=== PATIENT | female | born 1970 | race Caucasian/White ===

== ENCOUNTER → 2017-01-06 | Emergency (ER) | payer OTHER ==
[~2017-01-06] MED LIST: KETOROLAC TROMETHAMINE 30 MG/1 ML VIAL IVPUSH ONE; KETOROLAC TROMETHAMINE 30 MG/1 ML VIAL ONE; ONDANSETRON 4 MG/2 ML VIAL IVPB ONE; ONDANSETRON 4 MG/2 ML VIAL ONE; TAMSULOSIN HCL 0.4 MG CAP.ER.24H (FP) ONE; TAMSULOSIN HCL 0.4 MG CAP.ER.24H (FP) PO ONE; morphine CARPU-JECT 2 MG/1 ML DISP.SYRIN IVPUSH ONE; morphine CARPU-JECT 2 MG/1 ML DISP.SYRIN ONE
--- NOTE | 2017-01-06 20:12 | PDOC ---
History of Present Illness - General Stated Complaint: ABDOMINAL PAIN Time Seen by Provider: 01/06/17 20:02 - History of Present Illness Initial Comments: 01/06/17 20:10 CHIEF COMPLAINT: HISTORY OF PRESENT ILLNESS: 46 yo F with hx of HTN, HLD, asthma, bipolar disease, renal colic, colitis presents to ED with "kidney stones" and left sided flank pain. Patient reports the pain "like when you're having a baby and you're having contractions." She reports vomiting for the last 3 days (7 episodes) and diarrhea today (3 episodes). She reports that she is having difficulty urinating. She denies fever but reports chills, shortness of breath , and palpitations. She states that she was admitted to [facility] last week for 4 days "but they did not do anything except give me antibiotics in the IV.:" She states that she stopped having periods one year ago. No recent travel or sick contacts. PAST MEDICAL HISTORY: Denies past medical history FAMILY HISTORY: Denies SOCIAL HISTORY: Current smoker, 1 pack daily. Denies alcohol, illicit drug use. SURGICAL HISTORY: Denies ALLERGIES: No known drug allergies REVIEW OF SYSTEMS General/Constitutional: Chills. Denies fever. Denies weakness, weight change. HEENT: Denies change in vision. Denies ear pain or discharge. Denies sore throat. Cardiovascular: Shortness of breath, palpitations. Respiratory: Denies cough, wheezing, or hemoptysis. Gastrointestinal: Vomiting x 3 days, diarrhea today. Denies rectal bleeding. Genitourinary: Dysuria x 3 days. Denies frequency, or change in urination. Musculoskeletal: Denies joint or muscle swelling or pain. Denies neck or back pain. Skin and breasts: Denies rash or easy bruising. Neurologic: Denies headache, vertigo, loss of consciousness, or loss of sensation. PHYSICAL EXAM General Appearance: Well-appearing, appropriately dressed. No apparent distress. HEENT: EOMI, PERRLA, normal ENT inspection, normal voice, TMs normal, pharynx normal. No conjunctival pallor. No photophobia, scleral icterus. Neck: Supple. Trachea midline. No tenderness, rigidity, carotid bruit, stridor , lymphadenopathy, or thyromegaly. Respiratory/Chest: Lungs CTAB. No shortness of breath, chest tenderness, respiratory distress, accessory muscle use. No crackles, rales, rhonchi, stridor , wheezing, dullness Cardiovascular: RRR. S1, S2. No JVD, murmur, bradycardia, tachycardia. Vascular Pulses: Dorsalis-Pedis (R): 2+, Dorsalis-Pedis (L): 2+ Gastrointestinal/Abdominal: Normal bowel sounds. Abdomen soft, non-distended. No tenderness or rebound tenderness. No organomegaly, pulsatile mass, guarding , hernia, hepatomegaly, splenomegaly. Musculoskeletal/Extremities: L CVA tenderness. Normal inspection. FROM of all extremities, normal capillary refill. No tenderness to extremities, pedal edema , swelling, erythema or deformity. Integumentary: Appropriate color, dry, warm. No cyanosis, erythema, jaundice or rash Neurologic: jar filler II-XII intact. Fully oriented, alert. Appropriate mood/affect. Motor strength 5/5. No appreciable EOM palsy, facial droop or sensory deficit. 01/06/17 20:23 01/06/17 20:26 Past History - Past Medical History Allergies/Adverse Reactions: Allergies Allergy/AdvReac Type Severity Reaction Status Date / Time No Known Allergies Allergy Verified 01/06/17 20:16 Home Medications: Ambulatory Orders RX: Albuterol Sulfate Inhaler - [Ventolin HFA Inhaler -] 2 inh PO Q4H PRN RX: Amlodipine Besylate [Norvasc -] 10 mg PO DAILY 06/10/14 RX: Clonazepam [Klonopin] 1 mg PO TID 06/10/14 RX: Mirtazapine [Remeron -] 30 mg PO HS 06/10/14 RX: Montelukast Na [Singulair -] 10 mg PO HS 06/10/14 RX: Valsartan [Diovan] 160 mg PO DAILY 06/10/14 RX: Pantoprazole Sodium [Protonix -] 40 mg PO DAILY #30 tablet.ec 06/13/14 RX: Quetiapine Fumarate [Seroquel] 200 tab PO DAILY 11/29/15 RX: Docusate Sodium [Colace -] 100 mg PO TID #30 capsule 11/30/15 RX: Ibuprofen 600 mg PO Q6H PRN #20 tablet 11/30/15 RX: Ondansetron HCl [Zofran] 4 mg PO Q6H PRN #12 tablet 11/30/15 RX: Oxycodone HCl/Acetaminophen [Percocet 5-325 mg Tablet] 1 tab PO Q4H PRN #12 tablet MDD 4 11/30/15 RX: Phenyleph/Mineral Oil/Petrolat [Preparation H Ointment] 28 gm RC BID #1 oint.appl 11/30/15 RX: Tamsulosin HCl [Flomax -] 0.4 mg PO DAILY #14 capsule 11/30/15 Tamsulosin HCl [Flomax] 0.4 mg PO ASDIR #14 cap.er.24h 01/06/17 Asthma: Yes GI Disorders: Yes (colitis) HTN: Yes Hypercholesterolemia: Yes Kidney Stones: Yes Psychiatric Problems: Yes (bipolar) - Immunization History Immunization Up to Date: Yes - Psycho/Social/Smoking Cessation Hx Suicidal Ideation: No Smoking History: Never smoked Have you smoked in the past 12 months: No Number of Cigarettes Smoked Daily: 20 Hx Alcohol Use: No Drug/Substance Use Hx: No Substance Use Type: None Hx Substance Use Treatment: No ED Treatment Course - LABORATORY CBC & Chemistry Diagram: 01/06/17 20:50 01/06/17 20:50 Medical Decision Making - Medical Decision Making 01/06/17 20:29 46 yo F with hx of HTN, HLD, asthma, bipolar disease, renal colic, colitis presents to ED with "kidney stones" and left sided flank pain. -CBC, CMP -EKG, CXR -30 mg IM Toradol Patient persistently demands for more pain medication and threatens to leave hospital if she does not receive pain medication. 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: Rx Written Rx Dispensed Drug Quantity Days Supply Prescriber Name 12/20/2016 12/21/2016 zolpidem tartrate 10 mg tablet 30 30 Dylon Matamoros 12/20/2016 12/21/2016 endocet 10-325 mg tablet 120 30 Dylon Matamoros 12/20/2016 12/21/2016 fentanyl 50 mcg/hr patch 10 30 Dylon Matamoros 12/18/2016 12/19/2016 clonazepam 2 mg tablet 90 30 Fartun Padgett MD) 11/15/2016 11/22/2016 zolpidem tartrate 10 mg tablet 30 30 Dylon Matamoros 11/15/2016 11/22/2016 fentanyl 50 mcg/hr patch 10 30 Elzholz, Dylon 11/15/2016 11/22/2016 endocet 10-325 mg tablet 120 30 Elzholz, Dylon 11/13/2016 11/14/2016 clonazepam 2 mg tablet 60 30 Fletcher Ly MD 10/21/2016 10/21/2016 zolpidem tartrate 10 mg tablet 30 30 Elzholz, Dylon 10/21/2016 10/21/2016 fentanyl 50 mcg/hr patch 10 30 Elzholz, Dylon 10/21/2016 10/21/2016 endocet 10-325 mg tablet 120 30 Elzholz, Dylon 10/09/2016 10/17/2016 clonazepam 2 mg tablet 60 30 Fletcher Ly MD 09/20/2016 09/20/2016 fentanyl 50 mcg/hr patch 10 30 Elzholz, Dylon 09/20/2016 09/20/2016 zolpidem tartrate 10 mg tablet 30 30 Elzholz, Dylon 09/20/2016 09/20/2016 endocet 10-325 mg tablet 120 30 Elzholz, Dylon 09/18/2016 09/18/2016 clonazepam 2 mg tablet 60 30 Fletcher Ly MD Will defer more pain medication until after CT results. 01/06/17 23:25 CT wet read with stone to L kidney. 2 mg morphine. 01/06/17 23:39 CT results: 6 mm calcification within upper pole of left kidney consistent with a nonobstructing calculus. Will discharge patient with close follow up with urology for management of kidney stone. Flomax rx sent to pharm. Advised patient to take medication as prescribed and follow up with urology within the week. Advised patient of signs and symptoms for return to ED. Patient verbalized understanding and agrees to plan. *DC/Admit/Observation/Transfer Diagnosis at time of Disposition: Renal colic - Discharge Dispostion Disposition: HOME Condition at time of disposition: Stable Admit: No - Prescriptions Prescriptions: Tamsulosin HCl [Flomax] 0.4 mg PO ASDIR #14 cap.er.24h - Referrals Referrals: Keith Paredes MD [Primary Care Provider] - Vinnie Yung MD [Staff Physician] - - Patient Instructions Printed Discharge Instructions: DI for Kidney Stones Additional Instructions: Please take medication as directed to help you pass the stone. You MUST follow up with urology THIS WEEK for further evaluation of your kidney stone. If you experience any shortness of breath, chest pain, vaginal bleeding, fever, chills , vomiting, diarrhea, or any new or worsening symptoms, please return to the ER.
[2017-01-06 20:18] VITALS: BMI 40.8
[2017-01-06 21:04] LABS: BASOPHIL 0.8 % (0-2.0); EOSINOPHIL 9.8 % (0-4.5); MCH 32.5 pg (25.7-33.7); MCHC 33.6 g/dl (32.0-36.0); MEAN CELL VOLUME 96.6 fl (80-96); NEUTROPHILS 52.1 % (42.8-82.8); PLATELET COUNT 360 K/MM3 (134-434); RDW 13.7 % (11.6-15.6); WHITE BLOOD COUNT 14.3 K/mm3 (4.0-10.0)
[2017-01-06 21:33] LABS: URINE APPEARANCE CLEAR; URINE BILIRUBIN NEGATIVE (NEGATIVE); URINE COLOR STRAW; URINE GLUCOSE (UA) NEGATIVE (NEGATIVE); URINE KETONE NEGATIVE (NEGATIVE); URINE NITRITE NEGATIVE (NEGATIVE); URINE PROTEIN NEGATIVE (NEGATIVE); URINE UROBILINOGEN NEGATIVE E.U./dl (0.2-1.0)
[2017-01-06 21:35] LABS: URINE BLOOD 1+ (NEGATIVE); URINE LEUK ESTERASE TRACE (NEGATIVE)
[2017-01-06 21:37] LABS: URINE BACTERIA RARE /hpf (NONE SEEN); URINE MUCUS RARE; URINE RBC 1 /hpf (0-3); URINE WBC 2 /hpf (3-5)
[2017-01-06 21:54] LABS: TROPONIN I < 0.02 ng/ml (0.00-0.05)
[2017-01-06 22:42] LABS: ALBUMIN 3.8 g/dl (3.4-5.0); ALK PHOS 162 U/L (45-117); ANION GAP 10 (8-16); BILIRUBIN,TOTAL 0.3 mg/dL (0.2-1.0); CALCIUM 8.8 mg/dL (8.5-10.1); CO2 24 mmol/L (21-32); CREATININE 0.7 mg/dL (0.55-1.02); GLUCOSE,RANDOM 97 mg/dL (74-106); SGOT/AST 28 U/L (15-37); SGPT/ALT 41 U/L (12-78); TOT PROT 7.4 g/dl (6.4-8.2)
[2017-01-07 00:22] VITALS: BP 144/85; PULSE 81; TEMP 97.6
--- NOTE | 2017-01-07 17:10 | EKG ---
Test Reason : Blood Pressure : / mmHG Vent. Rate : 085 BPM Atrial Rate : 085 BPM P-R Int : 164 ms QRS Dur : 084 ms QT Int : 380 ms P-R-T Axes : 057 041 024 degrees QTc Int : 452 ms NORMAL SINUS RHYTHM NORMAL ECG WHEN COMPARED WITH ECG OF 25-JUL-2016 21:14, NO SIGNIFICANT CHANGE WAS FOUND Confirmed by JAXON MCINTYRE MD ([id number]) on 01/07/2017 5:09:40 PM Referred By: Confirmed By:JAXON MCINTYRE MD
== END | disposition home or self-care (01) ==
LOC: JER 19:49
PROC: 3E033NZ Introduction of Analgesics, Hypnotics, Sedatives into Peripheral Vein, Percutaneous Approach (ICD-10-PCS; principal; 2017-01-06)
PROC: 3E0333Z Introduction of Anti-inflammatory into Peripheral Vein, Percutaneous Approach (ICD-10-PCS; 2017-01-06)
PROC: 3E033GC Introduction of Other Therapeutic Substance into Peripheral Vein, Percutaneous Approach (ICD-10-PCS; 2017-01-06)
DX: N20.0 Calculus of kidney (principal); Z87.442 Personal history of urinary calculi; I10 Essential (primary) hypertension; E78.5 Hyperlipidemia, unspecified; E78.00 Pure hypercholesterolemia, unspecified; J45.909 Unspecified asthma, uncomplicated; F31.9 Bipolar disorder, unspecified
CPT/HCPCS: 36415; 71020-TC; 74176; 80053; 81003; 81015; 82550; 83690; 84484; 84703; 85025; 93005; 93010; 96374; 96375; 99283-25

== ENCOUNTER 2017-04-17 12:00 | Inpatient (IN) | payer OTHER ==
[2017-04-21 13:02] VITALS: BMI 42.2
[2017-04-22] MEDS ORDERED: MIDAZOLAM HCL 2 MG/2 ML SINGLE DOSE VIAL ONE ×2 (12:31→15:55)
[2017-04-22] MEDS ORDERED: ROCURONIUM BROMIDE 50 MG/5 ML VIAL ONE ×3 (12:32→16:08)
[2017-04-22] MEDS ORDERED: methylPREDNISolone NA SUCC 125 MG/2 ML VIAL ONE (12:38)
[2017-04-22] MEDS ORDERED: ALBUTEROL SO4 6.7 GM HFA INHALER IH ONE (12:38)
--- NOTE | 2017-04-22 12:49 | HP ---
Admitting History and Physical - Admission Chief Complaint: Morbid Obesity History of Present Illness: 46 female presents for bariatric surgery History of hypertension, hypercholesterolemia History Source: Patient Limitations to Obtaining History: No Limitations - Past Medical History Cardiovascular: Yes: HTN, Other (Hyoercholesterolemia) Pulmonary: Yes: Asthma Renal/: Yes: Renal Calculi ...LMP: 06/03/14 ...LMP Comment: POSTMENOPAUSAL ...: No Psych: Yes: Bipolar - Past Surgical History Past Surgical History: Yes: None - Smoking History Smoking history: Current every day smoker Have you smoked in the past 12 months: Yes Aproximately how many cigarettes per day: 20 - Alcohol/Substance Use Hx Alcohol Use: No History of Substance Use: reports: None - Social History History of Recent Travel: No Home Medications - Allergies Allergies/Adverse Reactions: Allergies Allergy/AdvReac Type Severity Reaction Status Date / Time No Known Allergies Allergy Verified 04/22/17 10:58 - Home Medications Home Medications: Ambulatory Orders Albuterol Sulfate Inhaler - [Ventolin HFA Inhaler -] 2 inh PO Q4H PRN 06/10/14 Amlodipine Besylate [Norvasc -] 5 mg PO DAILY 06/10/14 Clonazepam [Klonopin] 2 mg PO TID 06/10/14 Mirtazapine [Remeron -] 30 mg PO HS 06/10/14 Valsartan [Diovan] 160 mg PO DAILY 06/10/14 Pantoprazole Sodium [Protonix -] 40 mg PO DAILY #30 tablet.ec 06/13/14 Quetiapine Fumarate [Seroquel] 200 tab PO DAILY 11/29/15 Ibuprofen 600 mg PO Q6H PRN #20 tablet 11/30/15 Ondansetron HCl [Zofran] 4 mg PO Q6H PRN #12 tablet 11/30/15 Oxycodone HCl/Acetaminophen [Percocet 5-325 mg Tablet] 1 tab PO Q4H PRN #12 tablet MDD 4 11/30/15 Tamsulosin HCl [Flomax] 0.4 mg PO ASDIR #14 cap.er.24h 01/06/17 Family Disease History - Family Disease History Family History: Unremarkable Review of Systems - Review of Systems Constitutional: denies: Chills, Fever Neck: reports: No Symptoms Cardiovascular: reports: No Symptoms Gastrointestinal: reports: No Symptoms Neurological: reports: No Symptoms Pain Intensity: 0 Physical Examination Vital Signs: Vital Signs Temperature 99.2 F 04/22/17 11:01 Pulse Rate 89 04/22/17 11:01 Respiratory Rate 16 04/22/17 11:01 Blood Pressure 156/81 04/22/17 11:01 O2 Sat by Pulse Oximetry (%) 98 04/22/17 11:01 Constitutional: Yes: Calm, Obese HENT: Yes: WNL Neck: Yes: Supple Cardiovascular: Yes: Regular Rate and Rhythm Respiratory: Yes: CTA Bilaterally Gastrointestinal: Yes: Soft. No: Tenderness Neurological: Yes: Alert, Oriented Problem List - Problems (1) Asthma Code(s): J45.909 - UNSPECIFIED ASTHMA, UNCOMPLICATED Qualifiers: Asthma severity: unspecified severity (2) Hypertension Code(s): I10 - ESSENTIAL (PRIMARY) HYPERTENSION Qualifiers: Hypertension type: unspecified Qualified Code(s): I10 - Essential ( primary) hypertension (3) Morbid obesity due to excess calories Code(s): E66.01 - MORBID (SEVERE) OBESITY DUE TO EXCESS CALORIES (4) Hypercholesteremia Code(s): E78.00 - PURE HYPERCHOLESTEROLEMIA, UNSPECIFIED Assessment/Plan 46 female with morbid obesity Laparoscopic vertical sleeve gastrectomy possible open Understands risks and benefits Agrees
[2017-04-22] MEDS ORDERED: BUPIVACAINE HCL/PF 0.5% (5MG/ML) 10 ML VIAL IJ ONE (13:10)
[2017-04-22] MEDS ORDERED: NEOSTIGMINE METHYLSULFATE 0.5 MG/ML - 10 ML MDV ONE (13:57)
[2017-04-22] MEDS ORDERED: GLYCOPYRROLATE 0.2 MG/1 ML VIAL ONE ×4 (13:57)
[2017-04-22] MEDS ORDERED: HYDROmorphone HCL/PF 1 MG/ML VIAL (FOR PYXIS CHARGING ONLY) ONE (14:28)
[2017-04-22] MEDS ORDERED: BUPIVACAINE HCL/PF 0.5% (5MG/ML) 10 ML VIAL ONE (14:47)
[2017-04-22] MEDS: HYDROmorphone HCL CARPU-JECT 1 MG/1 ML DISP.SYRIN IVPUSH PRN ×8 (15:21→16:51)
[2017-04-22] MEDS ORDERED: HYDROmorphone HCL CARPU-JECT 2 MG/1 ML DISP.SYRIN ONE (15:21)
[2017-04-22] MEDS ORDERED: KETOROLAC TROMETHAMINE 30 MG/1 ML VIAL IVPUSH ONE (15:22)
[2017-04-22] MEDS ORDERED: ACETAMINOPHEN 1000 MG/100 ML VIAL (NON FORMULARY) IVPB ONE (15:22)
[2017-04-22] MEDS ORDERED: ONDANSETRON 4 MG/2 ML VIAL IVPUSH PRN (15:22)
[2017-04-22] MEDS ORDERED: LACTATED RINGERS SOLUTION 1,000 ML IV SCH (15:30)
[2017-04-22] MEDS ORDERED: HYDROmorphone HCL CARPU-JECT 1 MG/1 ML DISP.SYRIN IVPB PRN (15:32)
[2017-04-22] MEDS ORDERED: ALBUTEROL SO4 6.7 GM HFA INHALER IH PRN ×2 (15:37→20:05)
--- NOTE | 2017-04-22 15:37 | OP ---
Operative Note - Note: Operative Date: 04/22/17 Pre-Operative Diagnosis: Morbid Obesity Operation: laparoscopic vertical sleeve gastrectomy, EGD, wedge liver biopsy Findings: Hepatomegaly No leak/obstruction Post-Operative Diagnosis: Other (Morbid Obesity, Hepatomegaly) Surgeon: Melchor Bird (chau muse) It Investment/Portfolio Manager: Patric Chavarria Anesthesia: General Specimens Removed: Greater curvature of the stomach, wedge liver biopsy of the left lobe of the liver Estimated Blood Loss (mls): 30 Operative Report Dictated: Yes
[2017-04-22 15:44] LABS: MCH 32.3 pg (25.7-33.7); MCHC 34.1 g/dl (32.0-36.0); MEAN CELL VOLUME 94.6 fl (80-96); MEAN PLT VOLUME 7.6 fl (7.5-11.1); PLATELET COUNT 373 K/MM3 (134-434); WHITE BLOOD COUNT 16.3 K/mm3 (4.0-10.0)
[2017-04-22] MEDS ORDERED: SODIUM CHLORIDE 1,000 ML IV SCH (15:45)
[2017-04-22] MEDS ORDERED: ACETAMINOPHEN 1000 MG/100 ML VIAL (NON FORMULARY) IVPB SCH (15:45)
[2017-04-22 16:09] LABS: ALBUMIN 3.3 g/dl (3.4-5.0); ANION GAP 7 (8-16); CALCIUM 8.5 mg/dL (8.5-10.1); CO2 27 mmol/L (21-32); GLUCOSE,RANDOM 138 mg/dL (74-106)
[2017-04-22 16:12] LABS: ALK PHOS 166 U/L (45-117); BILIRUBIN,TOTAL 0.3 mg/dL (0.2-1.0); CREATININE 0.6 mg/dL (0.55-1.02); SGOT/AST 28 U/L (15-37); SGPT/ALT 36 U/L (12-78); TOT PROT 6.7 g/dl (6.4-8.2)
[2017-04-22] MEDS ORDERED: ACETAMINOPHEN INJECTION 100 ML IVPB ONE (16:23)
[2017-04-22] MEDS ORDERED: KETOROLAC TROMETHAMINE 30 MG/1 ML VIAL ONE (16:23)
--- NOTE | 2017-04-22 16:30 | SPEC ---
DATE OF OPERATION: 04/22/2017 SURGEON: Melchor Bird MD SUPERVISING LAW ENFORCEMENT ANALYST: Patric Chavarria MD and ELISSA Siddiqui PREOPERATIVE DIAGNOSIS: Morbid obesity. POSTOPERATIVE DIAGNOSES: Morbid obesity and hepatomegaly. PROCEDURE: Laparoscopic vertical sleeve gastrectomy, upper endoscopy, and wedge liver biopsy of the left lobe of the liver. SPECIMEN: Greater curvature of the stomach, wedge liver biopsy of the left lobe of the liver. ESTIMATED BLOOD LOSS: 30 mL DRAINS: None. ANESTHESIA: GET. REASON FOR PROCEDURE: This is a 46-year-old female who presented to the office for evaluation for weight loss options. RISKS AND BENEFITS: After describing the different options for weight loss management, the patient decided to proceed with a laparoscopic, possible open vertical sleeve gastrectomy. The patient was seen by the respective subspecialties and cleared for surgery. The risks and benefits of the procedure were explained. These included bleeding, infection, hernia, KS, DVT, PE, injury to surrounding structures including the liver, colon, bowel, spleen, esophagus, vessel injury, nerve injury, weight regain, gastric leak, staple line leak, sleeve leak, obstruction, vitamin deficiency, hair loss and as some of the possible complications. The patient understood and signed informed consent. DESCRIPTION OF PROCEDURE: The patient was placed supine on the operating room table. The patient underwent general endotracheal intubation. A Ayoub catheter was inserted. The arms were brought out at 90 degrees and secured. A footboard was placed and the legs were secured laterally with padding. The abdomen was prepped and draped in the usual sterile fashion. A timeout was performed. An incision was made in the left upper quadrant and a Veress needle inserted. Pneumoperitoneum was established. Subsequently, the Veress needle was removed and a 12-mm trocar was placed. The laparoscopic camera was then inserted and inspection of the abdominal cavity was performed. An incision was then made in the supraumbilical area and a 15-mm trocar was placed under direct visualization. A 5-mm trocar was then placed in the right upper quadrant and a 5-mm trocar was placed below the left subcostal margin. A stab wound was made in the subxiphoid area and a Caroline clamp inserted and removed to dilate the tract. A Yimi liver retractor was inserted. The post was secured at the bedside by the nursing staff. The patient was placed in steep reverse Trendelenburg position and the Yimi liver retractor was used to secure the liver towards the anterior abdominal wall. The pylorus was identified and 6 cm proximal to it, the lesser sac was entered using the LigaSure device. All lateral attachments to the greater curvature of the stomach, including the short gastric vessels, were ligated using the LigaSure device toward the gastrosplenic and gastrophrenic ligaments. Once this was done in its entirety, it was confirmed that all tubes within the nasal or oropharyngeal cavity, including a temperature probe, was removed by Anesthesia. The bougie was then inserted by Anesthesia. Transection of the stomach was then begun staying adjacent to the bougie but away from the angularis. Transection of the stomach was performed near the portion of the stomach where the lesser sac was entered. Two laparoscopic Endo-HOSSEIN black bev were used at this location. Laparoscopic Endo HOSSEIN purple staple loads were then used for the remainder of the transection until the greater curvature of the stomach was fully transected. This was done staying close to the bougie. Care was taken to stay away from the angle of His cephalad. The staple line was then inspected. Hemostasis was identified. A leak test was then performed. It was clamped distally to the staple line. Irrigation solution was placed in the left upper quadrant and air was insufflated by Anesthesia into the sleeve. No leaks were identified. No obstruction was identified. This was done through the entirety of the staple line. At this point, the irrigation solution was suctioned and again , hemostasis was noted. A wedge liver biopsy was then performed. The left lobe of the liver was identified and a portion of the edge was grasped. Using electrocautery, a wedge of the liver was excised. This was removed and sent off the field as specimen. Hemostasis at the site of the wedge liver biopsy was attained using electrocautery. The 15-mm supraumbilical trocar was then removed and the greater curvature specimen removed from the site using a sponge stick kenyon. The specimen was inspected and a Veress needle inserted. The specimen insufflated adequately and no leak was identified. The staple line was noted to be intact. A James-Cammie device was then used to temporarily close the fascia with a 0 Vicryl suture at the site. The 15-mm trocar was then reinserted and the 12-mm trocar in the left upper quadrant was removed. The fascia at this site was then closed using the James-Cammie device with a 0 Vicryl suture. Again, hemostasis was noted. The Yimi liver retractor was then removed under direct visualization. Pneumoperitoneum was desufflated and the fascial sutures were secured. Hemostasis was noted at all incision sites and Marcaine was injected at all incision sites. All incision sites were closed using 4-0 Biosyn. Sterile dressings were applied. The patient tolerated the procedure well and was transferred to the recovery room in stable condition with the Ayoub catheter intact. The patient was transferred to telemetry for further monitoring. In addition, after the 36-Romansh bougie was removed, an upper endoscopy was performed to evaluate for leak. No leak or obstruction was noted. Deya CALZADA/[id number] MTDD
[2017-04-22] MEDS ORDERED: HYDROmorphone HCL CARPU-JECT 1 MG/1 ML DISP.SYRIN IVPUSH PRN (16:32)
[2017-04-22] MEDS ORDERED: METOCLOPRAMIDE HCL INJECTION 10 MG/2 ML VIAL ONE (16:50)
[2017-04-22] MEDS: METOCLOPRAMIDE HCL INJECTION 10 MG/2 ML VIAL IVPB SCH ×3 (17:00→21:49)
[2017-04-22] MEDS: ONDANSETRON 4 MG/2 ML VIAL IVPB SCH ×2 (18:15→23:00)
[2017-04-22] MEDS: FAMOTIDINE 20 MG/50 ML IVPB 50 ML IVPB SCH (21:48)
[2017-04-22] MEDS: ACETAMINOPHEN 1000 MG/100 ML VIAL (NON FORMULARY) IVPB SCH (21:49)
[2017-04-22] MEDS: ENOXAPARIN NA (PORCINE) 40 MG/0.4 ML DISP.SYRIN SQ SCH (21:49)
[2017-04-22] MEDS: HYDROmorphone HCL CARPU-JECT 1 MG/1 ML DISP.SYRIN IVPB PRN (21:49)
[2017-04-22] MEDS ORDERED: ENOXAPARIN NA (PORCINE) 40 MG/0.4 ML DISP.SYRIN SQ SCH (22:00)
[2017-04-22] MEDS ORDERED: FAMOTIDINE 20 MG/50 ML IVPB 50 ML IVPB SCH (22:00)
[2017-04-23] MEDS: METOCLOPRAMIDE HCL INJECTION 10 MG/2 ML VIAL IVPB SCH ×4 (03:35→21:55)
[2017-04-23] MEDS: ACETAMINOPHEN 1000 MG/100 ML VIAL (NON FORMULARY) IVPB SCH ×2 (03:35→09:25)
[2017-04-23] MEDS: ONDANSETRON 4 MG/2 ML VIAL IVPB SCH ×7 (03:35→23:16)
[2017-04-23] MEDS: HYDROmorphone HCL CARPU-JECT 1 MG/1 ML DISP.SYRIN IVPB PRN ×4 (03:59→21:55)
[2017-04-23 07:21] LABS: MCH 31.9 pg (25.7-33.7); MCHC 33.6 g/dl (32.0-36.0); MEAN CELL VOLUME 95.1 fl (80-96); MEAN PLT VOLUME 7.7 fl (7.5-11.1); PLATELET COUNT 337 K/MM3 (134-434); RDW 14.4 % (11.6-15.6); WHITE BLOOD COUNT 14.2 K/mm3 (4.0-10.0)
[2017-04-23 07:46] LABS: ALBUMIN 2.9 g/dl (3.4-5.0); ALK PHOS 138 U/L (45-117); ANION GAP 9 (8-16); BILIRUBIN,TOTAL 0.3 mg/dL (0.2-1.0); CALCIUM 7.6 mg/dL (8.5-10.1); CO2 26 mmol/L (21-32); CREATININE 0.5 mg/dL (0.55-1.02); GLUCOSE,RANDOM 109 mg/dL (74-106); SGOT/AST 26 U/L (15-37); SGPT/ALT 32 U/L (12-78); TOT PROT 5.8 g/dl (6.4-8.2)
--- NOTE | 2017-04-23 08:39 | PN ---
Progress Note, Physician Chief Complaint: Pt. pain controlled, no GA complaints. - Current Medication List Current Medications: Active Medications Acetaminophen (Ofirmev Injection -) 1,000 mg IVPB Q6H [facility] Stop: 04/23/17 09:46 Last Admin: 04/23/17 03:35 Dose: 1,000 mg Albuterol Sulfate (Ventolin Hfa Inhaler -) 2 puff IH Q4H PRN PRN Reason: ASTHMA Enoxaparin Sodium (Lovenox -) 40 mg SQ BID [facility] Last Admin: 04/22/17 21:49 Dose: 40 mg Hydromorphone HCl (Dilaudid Injection -) 1 mg IVPB Q3H PRN PRN Reason: PAIN Last Admin: 04/23/17 07:44 Dose: 1 mg Famotidine/Sodium Chloride (Pepcid 20 Mg Premixed Ivpb -) 50 mls @ 100 mls/hr IVPB BID [facility] Last Admin: 04/22/17 21:48 Dose: 100 mls/hr Sodium Chloride (Normal Saline -) 1,000 mls @ 150 mls/hr IV ASDIR [facility] Metoclopramide HCl (Reglan Injection -) 10 mg IVPB Q6H [facility] Last Admin: 04/23/17 03:35 Dose: 10 mg Ondansetron HCl (Zofran Injection) 4 mg IVPB Q4H [facility] Last Admin: 04/23/17 03:35 Dose: 4 mg - Objective Vital Signs: Vital Signs Temperature 98.7 F 04/23/17 06:00 Pulse Rate 88 04/23/17 06:00 Respiratory Rate 16 04/23/17 06:00 Blood Pressure 114/70 04/23/17 06:00 O2 Sat by Pulse Oximetry (%) 97 04/22/17 21:00 Constitutional: Yes: Well Nourished, No Distress, Calm Neurological: Yes: WNL, Alert, Oriented Labs: CBC, BMP 04/23/17 07:00 04/23/17 07:00 Assessment/Plan POD#1 s/p laparoscopic vertical sleeve gastrectomy under GA. Doing well. D/C from anesthesia care.
[2017-04-23] MEDS: ENOXAPARIN NA (PORCINE) 40 MG/0.4 ML DISP.SYRIN SQ SCH ×2 (09:23→21:56)
[2017-04-23] MEDS: SODIUM CHLORIDE 1,000 ML IV SCH ×3 (09:35→21:56)
[2017-04-23] MEDS: FAMOTIDINE 20 MG/50 ML IVPB 50 ML IVPB SCH ×2 (09:35→21:54)
--- NOTE | 2017-04-23 10:05 | PN ---
Progress Note (short form) - Note Progress Note: POD #1 Alert. Doing well. Incisional tenderness but pain controlled well via PRN meds. Denies n/v/f/c, CP or SOB. AVSS. Afebrile. CBC, BMP 04/23/17 07:00 04/23/17 07:00 UGI 04/23 --> no leak Gen: alert. nad Abd: morbidly obese. All surgical ports intact. No hematoma. LE: soft. nt b/l <Bacilio Spring P - Last Filed: 04/23/17 10:01> - Note Progress Note: Agree POD 1 Pain controlled with medication AVSS Abd soft CBC,CMP WBC 14.2 K/mm3 (4.0-10.0) H 04/23/17 07:00 RBC 3.43 M/mm3 (3.60-5.2) L 04/23/17 07:00 Hgb 11.0 GM/dL (10.7-15.3) D 04/23/17 07:00 Hct 32.7 % (32.4-45.2) 04/23/17 07:00 MCV 95.1 fl (80-96) 04/23/17 07:00 MCH 31.9 pg (25.7-33.7) 04/23/17 07:00 MCHC 33.6 g/dl (32.0-36.0) 04/23/17 07:00 RDW 14.4 % (11.6-15.6) 04/23/17 07:00 Plt Count 337 K/MM3 (134-434) 04/23/17 07:00 MPV 7.7 fl (7.5-11.1) 04/23/17 07:00 Sodium 139 mmol/L (136-145) 04/23/17 07:00 Potassium 4.0 mmol/L (3.5-5.1) 04/23/17 07:00 Chloride 104 mmol/L (98-107) 04/23/17 07:00 Carbon Dioxide 26 mmol/L (21-32) 04/23/17 07:00 Anion Gap 9 (8-16) 04/23/17 07:00 BUN 12 mg/dL (7-18) 04/23/17 07:00 Creatinine 0.5 mg/dL (0.55-1.02) L 04/23/17 07:00 Creat Clearance w eGFR > 60 (>60) 04/23/17 07:00 Random Glucose 109 mg/dL (74-106) H D 04/23/17 07:00 Calcium 7.6 mg/dL (8.5-10.1) L 04/23/17 07:00 Total Bilirubin 0.3 mg/dL (0.2-1.0) 04/23/17 07:00 AST 26 U/L (15-37) 04/23/17 07:00 ALT 32 U/L (12-78) 04/23/17 07:00 Alkaline Phosphatase 138 U/L (45-117) H 04/23/17 07:00 Total Protein 5.8 g/dl (6.4-8.2) L 04/23/17 07:00 Albumin 2.9 g/dl (3.4-5.0) L 04/23/17 07:00 UGI: no leak/obstruction Clears OOB <Melchor Bird - Last Filed: 04/23/17 19:10> Problem List - Problems (1) Morbid obesity due to excess calories Assessment/Plan: POD #1 s/p Laparoscopic vertical sleeve gastretocmy Start bariatric stage 1 diet OOB and ambulate BLAYNE echeverria DC planning tomorrow Code(s): E66.01 - MORBID (SEVERE) OBESITY DUE TO EXCESS CALORIES <Bacilio Spring - Last Filed: 04/23/17 10:01> - Problems (1) Asthma Code(s): J45.909 - UNSPECIFIED ASTHMA, UNCOMPLICATED Qualifiers: Asthma severity: unspecified severity (2) Hypertension Code(s): I10 - ESSENTIAL (PRIMARY) HYPERTENSION Qualifiers: Hypertension type: unspecified Qualified Code(s): I10 - Essential ( primary) hypertension (3) Morbid obesity due to excess calories Code(s): E66.01 - MORBID (SEVERE) OBESITY DUE TO EXCESS CALORIES (4) Hypercholesteremia Code(s): E78.00 - PURE HYPERCHOLESTEROLEMIA, UNSPECIFIED <Melchor Bird - Last Filed: 04/23/17 19:10>
[2017-04-23] MEDS ORDERED: SIMETHICONE 40 MG/0.6 ML BOTTLE PO PRN (10:18)
--- NOTE | 2017-04-23 10:18 | CONSULT ---
Consult Consult Specialty:: family medicine Referred by:: DR FINCH Reason for Consultation:: MEDICAL FOLLOW UP S/P GASTRIC SLEEVE POD #1 - History of Present Illness Chief Complaint: ABD PAIN History of Present Illness: 46 Y/O FEMALE WITH HISTORY BIPOLAR D/O, ASTHMA, S/P GASTRIC SLEEVE POD #1. - History Source History Provided By: Patient, Medical Record Limitations to Obtaining History: No Limitations - Past Medical History Cardio/Vascular: Yes: HTN, Other (Hyoercholesterolemia) Pulmonary: Yes: Asthma Renal/: Yes: Renal Calculi ...LMP: 06/03/14 ...LMP Comment: POSTMENOPAUSAL ...: No Psych: Yes: Bipolar - Past Surgical History Past Surgical History: Yes: None - Alcohol/Substance Use Hx Alcohol Use: No History of Substance Use: reports: None - Smoking History Smoking history: Current every day smoker Have you smoked in the past 12 months: Yes Aproximately how many cigarettes per day: 20 - Social History History of Recent Travel: No Home Medications - Allergies Allergies/Adverse Reactions: Allergies Allergy/AdvReac Type Severity Reaction Status Date / Time No Known Allergies Allergy Verified 04/22/17 10:58 - Home Medications Home Medications: Ambulatory Orders Albuterol Sulfate Inhaler - [Ventolin HFA Inhaler -] 2 inh PO Q4H PRN 06/10/14 Amlodipine Besylate [Norvasc -] 5 mg PO DAILY 06/10/14 Clonazepam [Klonopin] 2 mg PO TID 06/10/14 Mirtazapine [Remeron -] 30 mg PO HS 06/10/14 Valsartan [Diovan] 160 mg PO DAILY 06/10/14 Pantoprazole Sodium [Protonix -] 40 mg PO DAILY #30 tablet.ec 06/13/14 Quetiapine Fumarate [Seroquel] 200 tab PO DAILY 11/29/15 Ibuprofen 600 mg PO Q6H PRN #20 tablet 11/30/15 Ondansetron HCl [Zofran] 4 mg PO Q6H PRN #12 tablet 11/30/15 Oxycodone HCl/Acetaminophen [Percocet 5-325 mg Tablet] 1 tab PO Q4H PRN #12 tablet MDD 4 11/30/15 Tamsulosin HCl [Flomax] 0.4 mg PO ASDIR #14 cap.er.24h 01/06/17 Famotidine [Pepcid] 20 mg PO BID #60 tablet 04/22/17 Oxycodone HCl/Acetaminophen [Percocet 5-325 mg Tablet] 1 - 2 tab PO Q6H #28 tab MDD 4 04/22/17 Review of Systems - Review of Systems Constitutional: reports: No Symptoms Eyes: reports: No Symptoms HENT: reports: No Symptoms Neck: reports: No Symptoms Cardiovascular: reports: No Symptoms Respiratory: reports: No Symptoms Gastrointestinal: reports: Abdominal Pain Genitourinary: reports: Other (HAS NOT VOIDED URINE POST OP YET) Breasts: reports: No Symptoms Reported Musculoskeletal: reports: No Symptoms Integumentary: reports: No Symptoms Neurological: reports: No Symptoms Endocrine: reports: No Symptoms Hematology/Lymphatic: reports: No Symptoms Psychiatric: reports: No Symptoms Physical Exam Vital Signs: Vital Signs Temperature 98.7 F 04/23/17 06:00 Pulse Rate 88 04/23/17 06:00 Respiratory Rate 16 04/23/17 06:00 Blood Pressure 114/70 04/23/17 06:00 O2 Sat by Pulse Oximetry (%) 97 04/22/17 21:00 Constitutional: Yes: Mild Distress Eyes: Yes: WNL HENT: Yes: WNL Neck: Yes: WNL Cardiovascular: Yes: WNL Respiratory: Yes: WNL Gastrointestinal: Yes: Tenderness Renal/: Yes: Other Musculoskeletal: Yes: WNL Extremities: Yes: WNL Edema: Yes Edema: LLE: Trace, RLE: Trace Peripheral Pulses WNL: Yes Wound/Incision: Yes: Dressing Dry and Intact Neurological: Yes: WNL ...Motor Strength: WNL Psychiatric: Yes: WNL Labs: CBC, BMP 04/23/17 07:00 04/23/17 07:00 Problem List - Problems (1) Asthma Code(s): J45.909 - UNSPECIFIED ASTHMA, UNCOMPLICATED Qualifiers: Asthma severity: unspecified severity (2) Morbid obesity due to excess calories Code(s): E66.01 - MORBID (SEVERE) OBESITY DUE TO EXCESS CALORIES (3) S/P laparoscopic sleeve gastrectomy Code(s): Z98.84 - BARIATRIC SURGERY STATUS Assessment/Plan OOB TO CHAIR GAS X DVT PROPHYLAXIS INCENTIVE SPIROMETRY LABS AND CHART REVIEWED PAIN CONTROL IVF PEPSID IV
[2017-04-23] MEDS: TAMSULOSIN HCL 0.4 MG CAP.ER.24H (FP) PO SCH (16:03)
[2017-04-24] MEDS: HYDROmorphone HCL CARPU-JECT 1 MG/1 ML DISP.SYRIN IVPB PRN (04:07)
[2017-04-24] MEDS: ONDANSETRON 4 MG/2 ML VIAL IVPB SCH ×2 (04:13→07:41)
[2017-04-24] MEDS: METOCLOPRAMIDE HCL INJECTION 10 MG/2 ML VIAL IVPB SCH (04:13)
[2017-04-24] MEDS: TAMSULOSIN HCL 0.4 MG CAP.ER.24H (FP) PO SCH (07:41)
--- NOTE | 2017-04-24 08:33 | DS ---
Physical Examination Vital Signs: Vital Signs Temperature 99.3 F 04/24/17 06:00 Pulse Rate 83 04/24/17 06:00 Respiratory Rate 18 04/24/17 06:00 Blood Pressure 138/81 04/24/17 06:00 O2 Sat by Pulse Oximetry (%) 92 L 04/23/17 21:00 Constitutional: Yes: No Distress HENT: Yes: WNL Neck: Yes: Supple Cardiovascular: Yes: Regular Rate and Rhythm Respiratory: Yes: CTA Bilaterally Gastrointestinal: Yes: Soft Wound/Incision: Yes: Dressing Dry and Intact Neurological: Yes: Alert, Oriented Labs: CBC, BMP 04/23/17 07:00 04/23/17 07:00 Discharge Summary Reason For Visit: MORBID (SEVERE) OBESITY /SECOND HYPERTENS/SLEEP AP Current Active Problems Asthma (Acute) Bipolar disorder (Acute) Hydroureter (Acute) Hypercholesteremia (Acute) Hypertension (Acute) Intractable pain (Acute) Morbid obesity due to excess calories (Acute) Renal calculus, left (Acute) S/P laparoscopic sleeve gastrectomy (Acute) Urinary tract infection (Acute) Procedures: Principal: Laparoscopic sleeve gastrectomy, liver biopsy Condition: Stable - Instructions Diet, Activity, Other Instructions: 132 [facility] Melchor Bird M.D. [address] [place] [address], [address] [facility] [address] [facility] [place] [address] Robotic, Bariatric and General Surgery Postoperative Instructions for Bariatric Surgery Activity: Resume normal everyday activity as tolerated. You may walk and climb stairs without any limitation. We encourage you to walk as often as you can Do not lift anything more than 10 pounds for 8 weeks. At that time, you can return to full activity, including the gym, without limitation. Do not drive a motor vehicle while taking prescribes narcotic pain medication. Wound Care: If you have a bandage in place, leave it on for 3 days. At that time you may remove the outer bandage. If there are strips of tape on the skin after removing the outer bandage, leave them in place. They will fall off by themselves. Do not remove them. If there is clear glue on the skin after removing the outer bandage, leave it in place. Do not pick at it or peel it off. You may shower after taking the outer bandage off, 3 days after your surgery. If incisions become red, warm or open, please call the office. Diet: Continue a sugar-free, non-carbonated Clear liquid diet three times a day for the first week-Stage I diet. In addition, you should drink 8 ounces of water every hour. When drinking, sips should be slow and steady, not large and quick. After the first week, call the office to be advanced to the next dietary stage. Do not advance stages until instructed. Your diet will be advanced over the phone each week. Medications/Pain Management: You may resume previous medications unless told otherwise. The pills may be swallowed whole or broken if scored. You may take the prescribed narcotic pain medication as needed. If the narcotic medication is not needed for pain control, you may take Tylenol. Avoid all other pain medications including Advil, Ibuprofen, Motrin, Aspirin, Naprosyn, Aleve, Celebrex. You will receive Pepcid. Please take this twice a day as prescribed. Dizziness,Headaches/Gas Pain: Make sure you are getting enough fluids daily. Patients on diuretics or water pills may need medication adjusted. Some fluids such as broth or Gatorade may help. Gas pains are common in the first few weeks after surgery. At times they can be worse than surgical pain. Walking can help. You can also use Mylanta, Maalox, or Gas-X. Vomiting/Nausea: This may occur if you eat too fast, don't chew, or eat too much. Go back to fluids. If the vomiting or nausea persists, call the office. Constipation/Diarrhea: You may experience a change in bowel habits. Many things affect this, including a decrease in food intake, not enough fluid and taking pain medication. Some people experience diarrhea after the barium swallow in x-ray. If either persist, call the office. Follow up: Call the office at [phone] for an appointment 2 weeks after your surgical procedure. Disposition: HOME - Home Medications Comprehensive Discharge Medication List: Ambulatory Orders Albuterol Sulfate Inhaler - [Ventolin HFA Inhaler -] 2 inh PO Q4H PRN 06/10/14 Amlodipine Besylate [Norvasc -] 5 mg PO DAILY 06/10/14 Clonazepam [Klonopin] 2 mg PO TID 06/10/14 Mirtazapine [Remeron -] 30 mg PO HS 06/10/14 Valsartan [Diovan] 160 mg PO DAILY 06/10/14 Pantoprazole Sodium [Protonix -] 40 mg PO DAILY #30 tablet.ec 06/13/14 Quetiapine Fumarate [Seroquel] 200 tab PO DAILY 11/29/15 Ibuprofen 600 mg PO Q6H PRN #20 tablet 11/30/15 Ondansetron HCl [Zofran] 4 mg PO Q6H PRN #12 tablet 11/30/15 Oxycodone HCl/Acetaminophen [Percocet 5-325 mg Tablet] 1 tab PO Q4H PRN #12 tablet MDD 4 11/30/15 Tamsulosin HCl [Flomax] 0.4 mg PO ASDIR #14 cap.er.24h 01/06/17 Famotidine [Pepcid] 20 mg PO BID #60 tablet 04/22/17 Oxycodone HCl/Acetaminophen [Percocet 5-325 mg Tablet] 1 - 2 tab PO Q6H #28 tab MDD 4 04/22/17
--- NOTE | 2017-04-24 09:35 | PN ---
Progress Note (short form) - Note Progress Note: PATIENT SEEN AND EXAMINED WILL NEED SURGERY FOLLOW UP IN 1 WEEK SEE YOUR PMD DR AMBROCIO IN 1 WEEK FOLLOW POST-OP INSTRUCTIONS Problem List - Problems (1) Asthma Code(s): J45.909 - UNSPECIFIED ASTHMA, UNCOMPLICATED Qualifiers: Asthma severity: unspecified severity (2) Morbid obesity due to excess calories Code(s): E66.01 - MORBID (SEVERE) OBESITY DUE TO EXCESS CALORIES (3) S/P laparoscopic sleeve gastrectomy Code(s): Z98.84 - BARIATRIC SURGERY STATUS
[2017-04-24] MEDS ORDERED: QUEtiapine FUMARATE 200 MG TABLET PO SCH (10:00)
[2017-04-24 10:41] VITALS: BP 158/95; PULSE 78; TEMP 98.7
--- NOTE | 2017-04-24 15:48 | PATH ---
Surgical Pathology Report Patient Name: KELBY BARRON [facility]. Rec. #: [id number] /Age/Gender: 1970 (Age: 46) / F Account: [id number] Location: 4 SO PEDS/ADOL Taken: 04/22/2017 Received: 04/23/2017 Reported: 04/24/2017 Physicians: Melchor Bird M.D. Specimen(s) Received A: LIVER BIOPSY B: GREATER CURAVATURE OF STOMACH Clinical History Hepatomegaly, morbid obesity Final Diagnosis A. LIVER, WEDGE, BIOPSY: STEATOHEPATITIS, MIDLY ACTIVE; STEATOSIS (~50%) MILD PERIVENULAR, PERISINUSOIDAL AND FOCAL MILD PORTAL FIBROSIS (LIMITED ASSESSMENT IN THE SUBCAPSULAR LIVER TISSUE). SEE COMMENT. Comment: Although the tissue is subcapsular, the liver architecture appears preserved. The portal tracts show patchy mild inflammation comprised of lymphocytes, histiocytes and scattered eosinophils. No increased plasma cells are noted. No significant interface activity is seen. No significant bile duct injury or ductular proliferation is seen. No portal granulomas are present. The lobules show patchy inflammation comprised of lymphocytes, scattered eosinophils and neutrophils. Rare acidophil bodies are seen. Only focal hepatocyte ballooning is seen; focal Stefany hyalin is identified. No lobular granulomas are seen. There is predominantly macrovesicular steatosis, present on approximately 50% of the biopsy material. Trichrome stain highlights mild perivenular, perisinusoidal and focal mild portal fibrosis. Iron stain shows no siderosis. Overall, the histologic findings are consistent with mildly active steatohepatitis (grade 1of 3), steatosis (~50%) and mild perivenular, perisinusoidal and focal mild portal fibrosis (stage 1 of 4) with limited fibrosis assessment in the subcapsular liver tissue. The etiology of steatohepatitis may include alcohol and non-alcohol related liver injury, such as drugs/toxins and metabolic conditions. Clinical and serological correlations are suggested. B. STOMACH, GREATER CURVATURE, LAPAROSCOPIC VERTICAL SLEEVE RESECTION: PORTION OF STOMACH WITH MODERATE CHRONIC GASTRITIS. IMMUNOSTAIN FOR H. PYLORI IS NEGATIVE FOR ORGANISMS. Electronically Signed Mj Alford M.D. Gross Description A. Received in formalin labeled "liver left lobe biopsy" is a 1.6 x 1.3 x 0.5 cm tejeda-brown, irregular portion of soft tissue, consistent with a liver biopsy. The specimen is bisected and entirely submitted in one cassette. B. Received in formalin, labeled "greater curvature of stomach" is a 125 gram, 18.0 x 4.2 x 3.2 cm. portion of stomach with a stapled margin of resection. The serosa is tejeda-guerrero with minimal attached fat. The mucosa is hyperemic with normal folds. No mucosal masses are identified. Track Production Engineer sections are submitted in one cassette. 04/23/2017 [facility]04/23/2017
== END 2017-04-24 10:31 | disposition home or self-care (01) | DRG 403 ==
LOC: EDSTATUS 12:00 → JSAMEDAYSX 04-22 09:49 → J4S 04-22 17:35
PROVIDERS: ADMIT Surgery; ATTEND Surgery
PROC: 0FB24ZX Excision of Left Lobe Liver, Percutaneous Endoscopic Approach, Diagnostic (ICD-10-PCS; 2017-04-22)
PROC: 0DB64Z3 Excision of Stomach, Percutaneous Endoscopic Approach, Vertical (ICD-10-PCS; principal; 2017-04-22 12:00)
DX: E66.01 Morbid (severe) obesity due to excess calories (principal); E78.00 Pure hypercholesterolemia, unspecified; J45.909 Unspecified asthma, uncomplicated; Z68.41 Body mass index [BMI] 40.0-44.9, adult; F31.9 Bipolar disorder, unspecified; F17.210 Nicotine dependence, cigarettes, uncomplicated; R16.0 Hepatomegaly, not elsewhere classified; I10 Essential (primary) hypertension
CPT/HCPCS: 36415; 74241-TC; 80053; 85027; 86850; 86900; 86901; 88305-TC; 88307-TC; 94760

== ENCOUNTER 2020-04-16 09:57 | Emergency (ER) | payer OTHER ==
[2020-04-16 10:02] VITALS: TEMP 98.6; BMI 33.2
--- NOTE | 2020-04-16 10:28 | PDOC ---
History of Present Illness - General Chief Complaint: Pain Stated Complaint: BACK PAIN Time Seen by Provider: 04/16/20 10:27 History Source: Patient Exam Limitations: No Limitations - History of Present Illness Initial Comments: 04/16/20 11:00 HPI: This is a 49 y/o female with a PMH of obesity, gastric sleeve, tummy tuck, HTN, asthma, and renal colic presenting to the ED because of colicky cramping/sharp suprapubic pain x5 days. When the pain began, it was 3/10 and she described it as similar to labor pains. 3 days ago it began radiating to her left flank, increased in intensity and was accompanied by N/V. She had 10 episodes of NBNB emesis yesterday and 3 this morning. She has not been able to keep down food or fluid the past few days. She admits to urinary hesitancy, pain, and feels as though she can't empty her bladder completely. She denies hematuria and vaginal discharge. Her last bowel movement was 1 week ago, which she says is normal for her. She has been passing gas. ROS: Constitutional - Pt denies Fever, Chills. Admits to weakness from vomiting. HEENT: denies vision changes, sore throat Respiratory: Denies cough, sob, hemoptysis Cardiac: denies chest pain, palpitations, light headedness, leg swelling Abd/GI: Admits to suprapubic, LLQ, and left flank pain. Admits to nausea and vomiting. Constipated (last BM 1 week ago, normal for her). Denies blood in stool. Has been passing gas. : Admits to hesitancy, dysuria, incomplete emptying. Denies hematuria or vaginal discharge. Musculskelatal - Admits to left flank pain skin - denies bruising, erythema, rash hematologic: denies anemia, easy bruising, easy bleeding PMH: obesity, gastric sleeve, tummy tuck, HTN, asthma, and renal colic PSH: Gastric sleeve, abdominoplasty Social: Admits to tobacco, denies etoh Meds: See med list Allergies: KNDA PE: ADULT Physical ExaM GENERAL: The patient is awake, alert, and fully oriented, Nontoxic, but in pain. Able to converse normally. HEAD: Normocephalic, atraumatic. EYES: Extraocular movements intact, sclera anicteric ENT: Normal voice, Moist mucous membranes. NECK: Normal range of motion, supple LUNGS: Breath sounds equal, clear to auscultation bilaterally. No wheezes, no crackles, no rales. HEART: Regular rate and rhythm, normal S1 and S2 without murmur, rub or gallop. ABDOMEN: Soft, tender to palpation in suprapubic area, LLQ. No guarding, no rebound. No masses. EXTREMITIES: Normal range of motion, no edema NEUROLOGICAL:Normal speech, normal gait. MDM: This is a 49 y/o female with a PMH of obesity, gastric sleeve, tummy tuck, HTN, asthma, and renal colic presenting to the ED because of colicky cramping/sharp suprapubic pain x5 days. When the pain began, it was 3/10 and she described it as similar to labor pains. 3 days ago it began radiating to her left flank, increased in intensity and was accompanied by N/V. She had 10 episodes of NBNB emesis yesterday and 3 this morning. ddx: Renal stone, UTI, pyelonephritis, STD, SBO, constipation - Given history of gastric sleeve, multiple abdominal surgeries, and kidney stones. Will CT abdomen and pelvis with oral and IV contrast - EKG, CBC, CMP, lipase, lactic acid, UA, culture - Zofran, famotidine, tylenol, and IV fluids. - Patient received zofran with improvement in nausea. - Received toradol and stated that she knew it wouldn't work. Also got 1000 tylenol IV. - Patient still extremely uncomfortable. Will give 4mg morphine. No episodes of emesis since arrival in ED. 04/16/20 13:00 Pertinent lab results: UA with 1+ leukocyte esterase, WBC 80, Bacteria 1517 04/16/20 13:01 CT abdomen and pelvis w/ oral and IV contrast: IMPRESSION: Cholelithiasis and fecal retention, otherwise essentially normal CT scan of the abdomen and pelvis with no evidence of acute pathology. - Patient no longer complaining of pain. She is eating a [employer] sandwich brought in by her visitor. - No abdominal tenderness on exam - No emesis - Will treat UTI and possible pyelonephritis because of left flank pain - Sent Bactrim and motrin to patients pharmacy. - Patient is stable to d/c with follow-up and return precautions Past History - Medical History Allergies/Adverse Reactions: Allergies Allergy/AdvReac Type Severity Reaction Status Date / Time No Known Allergies Allergy Verified 04/16/20 10:02 Home Medications: Ambulatory Orders Albuterol Sulfate Inhaler - [Ventolin HFA Inhaler -] 2 inh PO Q4H PRN 06/10/14 Amlodipine Besylate [Norvasc -] 5 mg PO DAILY 06/10/14 Clonazepam [Klonopin] 2 mg PO TID 06/10/14 Mirtazapine [Remeron -] 30 mg PO HS 06/10/14 Valsartan [Diovan] 160 mg PO DAILY 06/10/14 Pantoprazole Sodium [Protonix -] 40 mg PO DAILY #30 tablet.ec 06/13/14 Quetiapine Fumarate [Seroquel -] 200 tab PO DAILY 11/29/15 Ibuprofen 600 mg PO Q6H PRN #20 tablet 11/30/15 Ondansetron HCl [Zofran] 4 mg PO Q6H PRN #12 tablet 11/30/15 Oxycodone HCl/Acetaminophen [Percocet 5-325 mg Tablet] 1 tab PO Q4H PRN #12 tablet MDD 4 11/30/15 Tamsulosin HCl [Flomax] 0.4 mg PO ASDIR #14 cap.er.24h 01/06/17 Famotidine [Pepcid] 20 mg PO BID #60 tablet 04/22/17 Oxycodone HCl/Acetaminophen [Percocet 5-325 mg Tablet] 1 - 2 tab PO Q6H #28 tab MDD 4 04/22/17 Ibuprofen 400 mg PO TID PRN 5 Days #15 tablet 04/16/20 Sulfamethoxazole/Trimethoprim [Bactrim Ds -] 1 tab PO BID #14 tablet 04/16/20 Anemia: No Asthma: Yes Cancer: No Cardiac Disorders: No CVA: No COPD: No CHF: No Dementia: No Diabetes: No GI Disorders: Yes (colitis) Disorders: No HTN: Yes Hypercholesterolemia: Yes Kidney Stones: Yes Liver Disease: No Psychiatric Problems: Yes (bipolar) Seizures: No Thyroid Disease: No Other medical history: menepausal - Surgical History Abdominal Surgery: No Appendectomy: No Cardiac Surgery: No Cholecystectomy: No Lung Surgery: No Neurologic Surgery: No Orthopedic Surgery: No - Reproductive History Is Patient Now?: No - Immunization History Immunization Up to Date: Yes - Psycho-Social/Smoking History Smoking History: Current every day smoker Have you smoked in the past 12 months: Yes Number of Cigarettes Smoked Daily: 20 Information on smoking cessation initiated: No 'Breaking Loose' booklet given: 04/22/17 - Substance Abuse Hx (Audit-C & DAST Scrn) How often the patient has a drink containing alcohol: Never Score: In Men: 4 or > Positive; In Women: 3 or > Positive: 0 Screen Result (Pos requires Nsg. Audit-10AR): Negative *Physical Exam - Vital Signs Last Vital Signs Temp Pulse Resp BP Pulse Ox 98.6 F 81 18 163/100 99 04/16/20 09:59 04/16/20 09:59 04/16/20 09:59 04/16/20 09:59 04/16/20 09:59 Heart Score/ECG Review - ECG Intrepretation Comment:: 04/16/20 11:27 EKG: No ST elevations. T-wave inversions in III, V1 Sinus rhythm. Vent rate 63bpm, MS interval 162ms, QRS duration 84ms, QT/QTc: 410/419 ED Treatment Course - LABORATORY CBC & Chemistry Diagram: 04/16/20 11:15 04/16/20 11:15 Discharge - Discharge Information Problems reviewed: Yes Clinical Impression/Diagnosis: UTI (urinary tract infection) Qualifiers: Urinary tract infection type: site unspecified Hematuria presence: without hematuria Qualified Code(s): N39.0 - Urinary tract infection, site not specified Condition: Stable Disposition: HOME - Admission No - Additional Discharge Information Prescriptions: Sulfamethoxazole/Trimethoprim [Bactrim Ds -] 1 tab PO BID #14 tablet Ibuprofen 400 mg PO TID PRN 5 Days #15 tablet PRN Reason: Pain - Follow up/Referral Referrals: Keith Paredes MD [Primary Care Provider] - - Patient Discharge Instructions Patient Printed Discharge Instructions: DI for Urinary Tract Infection (UTI) Additional Instructions: You came to the emergency department because of lower abdominal pain. Your labs showed that you have a urinary tract infection. The CT scan showed that you have gallstones and are constipated. We are sending a prescription for Macrobid to the pharmacy for you. Please take the antibiotics as prescribed and make sure to finish them. Continue to take your medication for constipation and increase your water intake. Please return to the ED with any new or concerning symptoms. Return if you develop a fever, blood in your urine, inability to urinate. Please follow-up with your primary care provider in the next week if your symptoms dont improve. - Post Discharge Activity
[2020-04-16] MEDS ORDERED: KETOROLAC TROMETHAMINE 15 MG/ML VIAL IVPUSH ONE (10:46)
[2020-04-16] MEDS ORDERED: ONDANSETRON 4 MG/2 ML VIAL IVPB ONE (10:46)
[2020-04-16] MEDS ORDERED: FAMOTIDINE 20 MG/50 ML IVPB 20 MG/50 ML MG IVPB ONE ×2 (10:56→11:03)
[2020-04-16] MEDS ORDERED: LACTATED RINGERS SOLUTION 1000 ML INFUS.BAG IV ONE (11:00)
[2020-04-16] MEDS ORDERED: KETOROLAC TROMETHAMINE 15 MG/ML VIAL ONE (11:02)
[2020-04-16] MEDS ORDERED: ACETAMINOPHEN 1000 MG/100 ML VIAL (NON FORMULARY) IVPB ONE (11:19)
[2020-04-16] MEDS ORDERED: ACETAMINOPHEN INJECTION 100 ML IVPB ONE (11:43)
[2020-04-16] MEDS ORDERED: morphine CARPU-JECT 4 MG/1 ML DISP.SYRIN IVPUSH ONE (11:45)
[2020-04-16 11:50] LABS: EPI CELLS >36 /uL (0-25.1); HYALINE CASTS 1 /uL (0-3.1); PH,URINE 7.5 (5.0-8.0); URINE APPEARANCE CLOUDY; URINE BACTERIA 1517 /uL (0-1359); URINE BILIRUBIN NEGATIVE (NEGATIVE); URINE COLOR YELLOW; URINE GLUCOSE (UA) NEGATIVE (NEGATIVE); URINE KETONE NEGATIVE (NEGATIVE); URINE LEUK ESTERASE 1+ (NEGATIVE); URINE NITRITE NEGATIVE (NEGATIVE); URINE PROTEIN NEGATIVE (NEGATIVE); URINE RBC 8 /uL (0-23.9); URINE UROBILINOGEN 0.2 mg/dL (0.2-1.0); URINE WBC 80 /uL (0-25.8)
[2020-04-16 12:19] LABS: ALBUMIN 3.9 g/dl (3.4-5.0); BILIRUBIN,TOTAL 0.3 mg/dL (0.2-1); BLOOD UREA NITROGEN 8.6 mg/dL (7-18); CALCIUM 8.9 mg/dL (8.5-10.1); CREATININE 0.8 mg/dL (0.55-1.3); POTASSIUM 4.2 mmol/L (3.5-5.1); TOT PROT 7.3 g/dl (6.4-8.2)
[2020-04-16 12:27] LABS: BASO % 0.6 % (0-2.0); EOS % 11.9 % (0-4.5); HEMATOCRIT 32.5 % (32.4-45.2); HEMOGLOBIN 10.7 GM/dL (10.7-15.3); LYMPH % 41.3 % (8-40); MCH 29.1 pg (25.7-33.7); MEAN CELL VOLUME 88.1 fl (80-96); MEAN PLT VOLUME 8.5 fl (7.5-11.1); MONO % 4.8 % (3.8-10.2); NEUT % 41.4 % (42.8-82.8); PLATELET COUNT 395 K/MM3 (134-434); RBC 3.69 M/mm3 (3.60-5.2); RDW 16.5 % (11.6-15.6); WHITE BLOOD COUNT 9.4 K/mm3 (4.0-10.0)
--- NOTE | 2020-04-16 12:35 | PDOC ---
Documentation entered by Erendira Bloom SCRIBE, acting as scribe for Kelly Bojorquez MD. Kelly Bojorquez MD: This documentation has been prepared by the scribe, Erendira Bloom SCRIBE, under my direction and personally reviewed by me in its entirety. I confirm that the documentation accurately reflects all work, treatment, procedures, and medical decision making performed by me. Attending Attestation - Resident Resident Name: Lynda Burris - ED Attending Attestation I have performed the following: I have examined & evaluated the patient, The case was reviewed & discussed with the resident, I agree w/resident's findings & plan, Exceptions are as noted - HPI HPI: 04/16/20 10:44 Patient is a 49 year old female with a significant past medical history of obesity, gastric sleeve, tummy tuck, HTN, asthma, and renal colic who presents to the ED with vomiting and suprapubic pain x5 days. Patient stated her pain has radiated to her left flank area and has been getting worse than it initially was with associated nausea and vomiting. Patient reports she had 13 episodes of NBNB vomiting between last night and this morning and that she "cannot keep anything down". Patient said her last bowel movement was 1 week ago. Patient endorses: urinary hesitancy, pain, and feeling that she cannot "completely empty her bladder". Patient denies: hematuria, vaginal discharge, or any other related symptoms. Allergies: NKDA - Physicial Exam PE: GENERAL: Awake, alert, and fully oriented. Appears uncomfortable. HEAD: No signs of trauma EYES: PERRLA, EOMI, sclera anicteric, conjunctiva clear ENT: Auricles normal inspection, hearing grossly normal, nares patent, oropharynx clear without exudates. Moist mucosa NECK: Normal ROM, supple, no lymphadenopathy, JVD, or masses LUNGS: Breath sounds equal, clear to auscultation bilaterally. No wheezes, and no crackles HEART: Regular rate and rhythm, normal S1 and S2, no murmurs, rubs or gallops ABDOMEN: Soft, nontender, normoactive bowel sounds. No guarding, no rebound. No masses. No CVAT. +Tenderness to the L lower flank/patient's side, just superior to the ASIS. EXTREMITIES: Normal range of motion, no edema. No clubbing or cyanosis. No cords, erythema, or tenderness NEUROLOGICAL: Cranial nerves II through XII grossly intact. Normal speech, normal gait. Motor and sensation intact SKIN: Warm, dry, normal turgor, no rashes or lesions noted. - Medical Decision Making Pt with L flank pain, will obtain CT to r/o kidney stone. In light of multiple prior surgeries, will obtain with contrast to evaluate for poss SBO as well. Discharge - Discharge Information Problems reviewed: Yes Clinical Impression/Diagnosis: UTI (urinary tract infection) Qualifiers: Urinary tract infection type: site unspecified Hematuria presence: without hematuria Qualified Code(s): N39.0 - Urinary tract infection, site not specified Condition: Stable Disposition: HOME - Additional Discharge Information Prescriptions: Sulfamethoxazole/Trimethoprim [Bactrim Ds -] 1 tab PO BID #14 tablet Ibuprofen 400 mg PO TID PRN 5 Days #15 tablet PRN Reason: Pain - Follow up/Referral Referrals: Keith Paredes MD [Primary Care Provider] - - Patient Discharge Instructions Patient Printed Discharge Instructions: DI for Urinary Tract Infection (UTI) Additional Instructions: You came to the emergency department because of lower abdominal pain. Your labs showed that you have a urinary tract infection. The CT scan showed that you have gallstones and are constipated. We are sending a prescription for Macrobid to the pharmacy for you. Please take the antibiotics as prescribed and make sure to finish them. Continue to take your medication for constipation and increase your water intake. Please return to the ED with any new or concerning symptoms. Return if you develop a fever, blood in your urine, inability to urinate. Please follow-up with your primary care provider in the next week if your symptoms dont improve. - Post Discharge Activity
[2020-04-16] MEDS ORDERED: morphine SULFATE 4 MG/ML VIAL ONE (13:23)
[2020-04-16 13:34] VITALS: BP 161/97; PULSE 85
--- NOTE | 2020-04-17 18:25 | EKG ---
Test Reason : Blood Pressure : / mmHG Vent. Rate : 063 BPM Atrial Rate : 063 BPM P-R Int : 162 ms QRS Dur : 084 ms QT Int : 410 ms P-R-T Axes : 043 044 025 degrees QTc Int : 419 ms NORMAL SINUS RHYTHM NORMAL ECG WHEN COMPARED WITH ECG OF 10-FEB-2017 09:43, NO SIGNIFICANT CHANGE WAS FOUND Confirmed by JAXON MCINTYRE MD ([id number]) on 04/17/2020 6:25:07 PM Referred By: Confirmed By:JAXON MCINTYRE MD
== END 2020-04-16 14:45 | disposition home or self-care (01) ==
LOC: JER 09:57
PROC: 3E033NZ Introduction of Analgesics, Hypnotics, Sedatives into Peripheral Vein, Percutaneous Approach (ICD-10-PCS; principal; 2020-04-16)
PROC: 3E033GC Introduction of Other Therapeutic Substance into Peripheral Vein, Percutaneous Approach (ICD-10-PCS; 2020-04-16)
DX: N39.0 Urinary tract infection, site not specified (principal)
CPT/HCPCS: 36415; 74177-TC; 80053; 81003; 83605; 83690; 85025; 87086; 93005; 93010; 96374; 96375; 99285-25; J0131; Q9967

== ENCOUNTER 2020-06-07 08:28 | Inpatient (IN) | payer OTHER ==
[2020-06-07] MEDS ORDERED: ACETAMINOPHEN 1000 MG/100 ML VIAL (NON FORMULARY) IVPB ONE (09:26)
[2020-06-07] MEDS ORDERED: ACETAMINOPHEN INJECTION 100 ML IVPB ONE ×2 (09:30→21:19)
[2020-06-07 09:42] LABS: BASO % 0.6 % (0-2.0); EOS % 0.8 % (0-4.5); HEMATOCRIT 34.7 % (32.4-45.2); HEMOGLOBIN 11.5 GM/dL (10.7-15.3); LYMPH % 5.7 % (8-40); MCH 29.4 pg (25.7-33.7); MCHC 33.1 g/dl (32.0-36.0); MEAN CELL VOLUME 88.8 fl (80-96); MEAN PLT VOLUME 8.2 fl (7.5-11.1); MONO % 3.2 % (3.8-10.2); NEUT % 89.7 % (42.8-82.8); PLATELET COUNT 348 K/MM3 (134-434); RDW 17.6 % (11.6-15.6); WHITE BLOOD COUNT 13.7 K/mm3 (4.0-10.0)
[2020-06-07 10:20] LABS: CHLORIDE 107 mmol/L (98-107); POTASSIUM 4.3 mmol/L (3.5-5.1); SODIUM 137 mmol/L (136-145)
[2020-06-07] MEDS ORDERED: SODIUM CHLORIDE 1,000 ML IV STA ×2 (10:25→11:46)
[2020-06-07] MEDS ORDERED: morphine CARPU-JECT 4 MG/1 ML DISP.SYRIN IVPUSH ONE ×2 (10:25→15:06)
[2020-06-07] MEDS ORDERED: ONDANSETRON 4 MG/2 ML VIAL IVPB ONE (10:25)
[2020-06-07 10:37] LABS: ALBUMIN 3.6 g/dl (3.4-5.0); ALK PHOS 161 U/L (45-117); ANION GAP 5 MMOL/L (8-16); BILIRUBIN,TOTAL 0.6 mg/dL (0.2-1); CALCIUM 8.6 mg/dL (8.5-10.1); CO2 25 mmol/L (21-32); CREATININE 0.7 mg/dL (0.55-1.3); GLUCOSE,RANDOM 110 mg/dL (74-106); SGOT/AST 13 U/L (15-37); SGPT/ALT 20 U/L (13-61); TOT PROT 7.4 g/dl (6.4-8.2)
[2020-06-07] MEDS ORDERED: morphine SULFATE 4 MG/ML VIAL ONE ×2 (11:01→21:19)
[2020-06-07 11:09] LABS: ACTIVATED PTT 28.7 SECONDS (25.2-36.5); INR 0.95 (0.83-1.09); PROTHROMBIN TIME (PATIENT) 11.2 SEC (9.7-13.0)
[2020-06-07] MEDS ORDERED: KETOROLAC TROMETHAMINE 30 MG/1 ML VIAL IVPUSH ONE (11:46)
[2020-06-07 14:47] LABS: EPI CELLS >36 /uL (0-25.1); HYALINE CASTS 4 /uL (0-3.1); PH,URINE 5.5 (5.0-8.0); URINE APPEARANCE CLEAR; URINE BACTERIA 719 /uL (0-1359); URINE BILIRUBIN NEGATIVE (NEGATIVE); URINE COLOR YELLOW; URINE GLUCOSE (UA) NEGATIVE (NEGATIVE); URINE KETONE NEGATIVE (NEGATIVE); URINE LEUK ESTERASE NEGATIVE (NEGATIVE); URINE NITRITE NEGATIVE (NEGATIVE); URINE PROTEIN TRACE (NEGATIVE); URINE UROBILINOGEN 0.2 mg/dL (0.2-1.0); URINE WBC 18 /uL (0-25.8)
[2020-06-07 14:51] LABS: URINE RBC 46.6 /uL (0-23.9)
[2020-06-07] MEDS ORDERED: CEFTRIAXONE 1,000 MG in DEXTROSE 5%-WATER - 50 ML IVPB ONE (15:01)
[2020-06-07] MEDS ORDERED: MORPHINE SULFATE 2 MG/ML VIAL ONE (15:08)
[2020-06-07] MEDS ORDERED: CEFTRIAXONE 1 GM/50 ML BAG ONE (15:08)
[2020-06-07] MEDS: SODIUM CHLORIDE 1,000 ML IV SCH (20:00)
[2020-06-07] MEDS: ACETAMINOPHEN 1000 MG/100 ML VIAL (NON FORMULARY) IVPB PRN (21:25)
[2020-06-07] MEDS: morphine SULFATE 4 MG/ML VIAL IVPUSH PRN (21:25)
[2020-06-08] MEDS: HEPARIN NA (PORCINE) 5,000 UNITS/ML 1ML VIAL SQ SCH ×2 (00:59→09:42)
[2020-06-08] MEDS ORDERED: IBUPROFEN 800 MG/8 ML IJ IVPB ONE (01:46)
[2020-06-08] MEDS ORDERED: MEROPENEM 1 GM in DEXTROSE 5%-WATER 100 ML IVPB ONE (01:52)
[2020-06-08] MEDS ORDERED: VANCOMYCIN 1 GM in D5W (PRE-DOCKED) 1,000 MG/250 ML IVPB ONE (01:53)
[2020-06-08] MEDS ORDERED: morphine SULFATE 4 MG/ML VIAL ONE ×2 (02:34→10:55)
[2020-06-08] MEDS: morphine SULFATE 4 MG/ML VIAL IVPUSH PRN ×4 (02:36→23:57)
[2020-06-08] MEDS ORDERED: MEROPENEM 1 GM VIAL (RESTRICTED TO ID) IVPB ONE (02:39)
[2020-06-08] MEDS ORDERED: SODIUM CHLORIDE 1,000 ML IV STA (05:22)
[2020-06-08 07:38] LABS: BASO % 0.3 % (0-2.0); EOS % 0.1 % (0-4.5); HEMATOCRIT 31.5 % (32.4-45.2); HEMOGLOBIN 10.3 GM/dL (10.7-15.3); LYMPH % 17.5 % (8-40); MCH 29.2 pg (25.7-33.7); MCHC 32.7 g/dl (32.0-36.0); MEAN CELL VOLUME 89.2 fl (80-96); MEAN PLT VOLUME 8.4 fl (7.5-11.1); MONO % 4.8 % (3.8-10.2); NEUT % 77.3 % (42.8-82.8); PLATELET COUNT 303 K/MM3 (134-434); RBC 3.53 M/mm3 (3.60-5.2); RDW 17.6 % (11.6-15.6); WHITE BLOOD COUNT 8.9 K/mm3 (4.0-10.0)
[2020-06-08] MEDS ORDERED: ACETAMINOPHEN INJECTION 100 ML IVPB ONE (07:39)
[2020-06-08] MEDS: ACETAMINOPHEN 1000 MG/100 ML VIAL (NON FORMULARY) IVPB PRN ×2 (07:47→14:35)
[2020-06-08 07:55] LABS: ALBUMIN 3.1 g/dl (3.4-5.0); BILIRUBIN,TOTAL 0.7 mg/dL (0.2-1); BLOOD UREA NITROGEN 13.2 mg/dL (7-18); CALCIUM 7.6 mg/dL (8.5-10.1); CREATININE 0.8 mg/dL (0.55-1.3); POTASSIUM 3.2 mmol/L (3.5-5.1); TOT PROT 6.8 g/dl (6.4-8.2)
[2020-06-08] MEDS ORDERED: HEPARIN NA (PORCINE) 5,000 UNITS/ML 1ML VIAL ONE (09:39)
[2020-06-08] MEDS: SODIUM CHLORIDE 1,000 ML IV SCH ×2 (14:01→21:11)
[2020-06-08] MEDS ORDERED: DEXTROSE 5%-WATER 100 ML IVPB ONE (16:04)
[2020-06-08] MEDS: CEFTRIAXONE 2 GM in DEXTROSE 5%-WATER 100 ML IVPB SCH (16:10)
[2020-06-08 16:56] VITALS: BMI 35.4
[2020-06-08] MEDS ORDERED: FLU VACCINE (FLULAVAL) PF 60 MCG/0.5 ML SYRINGE 2020-2021 IM ONE (16:56)
[2020-06-08] MEDS: NICOTINE 14 MG/24 HOURS TOPICAL PATCH TD SCH (18:39)
[2020-06-08] MEDS ORDERED: ACETAMINOPHEN 1000 MG/100 ML VIAL (NON FORMULARY) IVPB PRN ×2 (21:18→21:22)
[2020-06-08] MEDS ORDERED: ACETAMINOPHEN 1000 MG/100 ML VIAL (NON FORMULARY) IVPB ONE (21:26)
[2020-06-08] MEDS: D5-NS + 40 MEQ KCL - 40 MEQ/1,000 ML INFUS.BAG IV SCH (22:44)
[2020-06-08] MEDS: KCL 10 MEQ IVPB 10 MEQ/100 ML INFUS.BAG IVPB SCH ×2 (22:45→23:58)
[2020-06-09] MEDS: PANTOPRAZOLE SODIUM 40 MG VIAL IVPUSH SCH ×2 (00:54→09:45)
[2020-06-09] MEDS: VANCOMYCIN 250 MG/5 ML ORAL SOLUTION PO SCH ×5 (00:55→18:22)
[2020-06-09] MEDS: KCL 10 MEQ IVPB 10 MEQ/100 ML INFUS.BAG IVPB SCH ×5 (00:58→22:48)
[2020-06-09] MEDS ORDERED: IBUPROFEN 800 MG/8 ML IJ IVPB ONE (02:56)
[2020-06-09] MEDS ORDERED: ONDANSETRON 4 MG/2 ML VIAL IVPUSH ONE (02:57)
[2020-06-09 09:00] LABS: BASO % 0.3 % (0-2.0); EOS % 0.3 % (0-4.5); HEMATOCRIT 26.7 % (32.4-45.2); HEMOGLOBIN 8.8 GM/dL (10.7-15.3); LYMPH % 13.7 % (8-40); MCH 28.9 pg (25.7-33.7); MCHC 33.1 g/dl (32.0-36.0); MEAN CELL VOLUME 87.3 fl (80-96); MEAN PLT VOLUME 8.2 fl (7.5-11.1); MONO % 6.6 % (3.8-10.2); NEUT % 79.1 % (42.8-82.8); PLATELET COUNT 260 K/MM3 (134-434); RBC 3.05 M/mm3 (3.60-5.2); RDW 16.9 % (11.6-15.6); WHITE BLOOD COUNT 7.5 K/mm3 (4.0-10.0)
[2020-06-09 09:25] LABS: ALBUMIN 2.5 g/dl (3.4-5.0); BLOOD UREA NITROGEN 6.2 mg/dL (7-18); CALCIUM 7.8 mg/dL (8.5-10.1)
[2020-06-09 09:29] LABS: BILIRUBIN,TOTAL 0.2 mg/dL (0.2-1); CREATININE 0.5 mg/dL (0.55-1.3); TOT PROT 5.7 g/dl (6.4-8.2)
[2020-06-09 09:35] LABS: POTASSIUM 2.8 mmol/L (3.5-5.1)
[2020-06-09] MEDS ORDERED: DEXTROSE 5%-WATER 100 ML IVPB ONE (09:41)
[2020-06-09] MEDS: morphine SULFATE 4 MG/ML VIAL IVPUSH PRN ×2 (09:44→14:58)
[2020-06-09] MEDS: CEFTRIAXONE 2 GM in DEXTROSE 5%-WATER 100 ML IVPB SCH (09:45)
[2020-06-09] MEDS: NICOTINE 14 MG/24 HOURS TOPICAL PATCH TD SCH (09:47)
[2020-06-09] MEDS: ENOXAPARIN NA (PORCINE) 40 MG/0.4 ML DISP.SYRIN SQ SCH (09:48)
[2020-06-09 11:40] LABS: MAGNESIUM 2.1 mg/dL (1.8-2.4)
[2020-06-09] MEDS: HYDROmorphone HCl 2 MG/ML VIAL IVPB PRN ×2 (18:25→23:14)
[2020-06-09 21:43] LABS: CALCIUM 7.8 mg/dL (8.5-10.1)
[2020-06-09 21:44] LABS: BLOOD UREA NITROGEN 5.5 mg/dL (7-18)
[2020-06-09 21:47] LABS: CREATININE 0.4 mg/dL (0.55-1.3)
[2020-06-09 21:53] LABS: POTASSIUM 2.9 mmol/L (3.5-5.1)
[2020-06-09] MEDS: D5-NS + 40 MEQ KCL - 40 MEQ/1,000 ML INFUS.BAG IV SCH (22:48)
[2020-06-10] MEDS: KCL 10 MEQ IVPB 10 MEQ/100 ML INFUS.BAG IVPB SCH ×2 (00:35→02:36)
[2020-06-10] MEDS: D5-NS + 40 MEQ KCL - 40 MEQ/1,000 ML INFUS.BAG IV SCH ×3 (04:37→22:45)
[2020-06-10] MEDS: VANCOMYCIN 250 MG/5 ML ORAL SOLUTION PO SCH ×4 (06:06→17:37)
[2020-06-10] MEDS: HYDROmorphone HCl 2 MG/ML VIAL IVPB PRN ×4 (07:42→21:15)
[2020-06-10 08:44] LABS: BASO % 0.5 % (0-2.0); EOS % 4.1 % (0-4.5); HEMOGLOBIN 8.3 GM/dL (10.7-15.3); LYMPH % 18.9 % (8-40); MCHC 34.5 g/dl (32.0-36.0); MEAN CELL VOLUME 87.1 fl (80-96); MONO % 10.3 % (3.8-10.2); NEUT % 66.2 % (42.8-82.8); PLATELET COUNT 240 K/MM3 (134-434); RBC 2.76 M/mm3 (3.60-5.2); RDW 17.1 % (11.6-15.6); WHITE BLOOD COUNT 5.8 K/mm3 (4.0-10.0)
[2020-06-10] MEDS ORDERED: ONDANSETRON 4 MG/2 ML VIAL IVPB ONE (08:50)
[2020-06-10 08:52] LABS: POTASSIUM 3.4 mmol/L (3.5-5.1)
[2020-06-10 08:57] LABS: ALBUMIN 2.4 g/dl (3.4-5.0); CALCIUM 7.7 mg/dL (8.5-10.1)
[2020-06-10 08:58] LABS: BLOOD UREA NITROGEN 3.9 mg/dL (7-18); MAGNESIUM 2.2 mg/dL (1.8-2.4)
[2020-06-10 09:01] LABS: CREATININE 0.4 mg/dL (0.55-1.3)
[2020-06-10 09:02] LABS: BILIRUBIN,TOTAL 0.4 mg/dL (0.2-1); TOT PROT 5.7 g/dl (6.4-8.2)
[2020-06-10] MEDS ORDERED: DEXTROSE 5%-WATER 100 ML IVPB ONE (09:21)
[2020-06-10] MEDS: PANTOPRAZOLE SODIUM 40 MG VIAL IVPUSH SCH (09:31)
[2020-06-10] MEDS: NICOTINE 14 MG/24 HOURS TOPICAL PATCH TD SCH (09:32)
[2020-06-10] MEDS: ENOXAPARIN NA (PORCINE) 40 MG/0.4 ML DISP.SYRIN SQ SCH (09:33)
[2020-06-10] MEDS: CEFTRIAXONE 2 GM in DEXTROSE 5%-WATER 100 ML IVPB SCH (10:35)
[2020-06-11] MEDS: HYDROmorphone HCl 2 MG/ML VIAL IVPB PRN ×4 (01:23→18:58)
[2020-06-11] MEDS: VANCOMYCIN 250 MG/5 ML ORAL SOLUTION PO SCH ×4 (06:00→17:52)
[2020-06-11 08:42] LABS: BASO % 0.6 % (0-2.0); EOS % 8.5 % (0-4.5); HEMATOCRIT 26.4 % (32.4-45.2); LYMPH % 23.2 % (8-40); MCH 29.9 pg (25.7-33.7); MCHC 34.1 g/dl (32.0-36.0); MEAN CELL VOLUME 87.7 fl (80-96); MEAN PLT VOLUME 8.2 fl (7.5-11.1); MONO % 10.6 % (3.8-10.2); NEUT % 57.1 % (42.8-82.8); PLATELET COUNT 290 K/MM3 (134-434); RBC 3.01 M/mm3 (3.60-5.2); RDW 17.3 % (11.6-15.6); WHITE BLOOD COUNT 6.5 K/mm3 (4.0-10.0)
[2020-06-11 08:54] LABS: POTASSIUM 3.6 mmol/L (3.5-5.1)
[2020-06-11 08:56] LABS: CALCIUM 8.2 mg/dL (8.5-10.1)
[2020-06-11 08:57] LABS: ALBUMIN 2.6 g/dl (3.4-5.0); BLOOD UREA NITROGEN 3.1 mg/dL (7-18)
[2020-06-11 09:00] LABS: CREATININE 0.4 mg/dL (0.55-1.3)
[2020-06-11] MEDS: ONDANSETRON 4 MG/2 ML VIAL IVPB PRN (09:00)
[2020-06-11 09:01] LABS: BILIRUBIN,TOTAL 0.5 mg/dL (0.2-1); TOT PROT 6.2 g/dl (6.4-8.2)
[2020-06-11] MEDS: ENOXAPARIN NA (PORCINE) 40 MG/0.4 ML DISP.SYRIN SQ SCH (09:12)
[2020-06-11] MEDS: NICOTINE 14 MG/24 HOURS TOPICAL PATCH TD SCH (09:12)
[2020-06-11] MEDS: PANTOPRAZOLE SODIUM 40 MG VIAL IVPUSH SCH (09:12)
[2020-06-11] MEDS ORDERED: cefTRIAXone SODIUM 1 GM VIAL ONE (14:15)
[2020-06-11] MEDS ORDERED: DEXTROSE 5%-WATER - 50 ML IVPB ONE (14:15)
[2020-06-11] MEDS: CEFTRIAXONE 1 GM in DEXTROSE 5%-WATER - 50 ML IVPB SCH (14:17)
[2020-06-11] MEDS: D5-NS + 40 MEQ KCL - 40 MEQ/1,000 ML INFUS.BAG IV SCH (15:13)
[2020-06-12] MEDS: VANCOMYCIN 250 MG/5 ML ORAL SOLUTION PO SCH ×4 (00:30→18:26)
[2020-06-12] MEDS: HYDROmorphone HCl 2 MG/ML VIAL IVPB PRN ×3 (00:45→14:55)
[2020-06-12 08:25] LABS: BASO % 0.5 % (0-2.0); EOS % 10.9 % (0-4.5); HEMATOCRIT 26.5 % (32.4-45.2); HEMOGLOBIN 8.8 GM/dL (10.7-15.3); MCH 28.6 pg (25.7-33.7); MCHC 33.1 g/dl (32.0-36.0); MEAN CELL VOLUME 86.3 fl (80-96); MEAN PLT VOLUME 8.2 fl (7.5-11.1); MONO % 13.5 % (3.8-10.2); NEUT % 46.1 % (42.8-82.8); PLATELET COUNT 310 K/MM3 (134-434); RBC 3.06 M/mm3 (3.60-5.2); RDW 17.2 % (11.6-15.6); WHITE BLOOD COUNT 6.3 K/mm3 (4.0-10.0)
[2020-06-12 08:26] LABS: HEMATOCRIT 26.3 % (32.4-45.2); HEMOGLOBIN 8.8 GM/dL (10.7-15.3); MCH 28.9 pg (25.7-33.7); MCHC 33.5 g/dl (32.0-36.0); MEAN CELL VOLUME 86.2 fl (80-96); MEAN PLT VOLUME 8.1 fl (7.5-11.1); PLATELET COUNT 317 K/MM3 (134-434); RBC 3.06 M/mm3 (3.60-5.2); RDW 17.2 % (11.6-15.6); WHITE BLOOD COUNT 6.1 K/mm3 (4.0-10.0)
[2020-06-12] MEDS: D5-NS + 40 MEQ KCL - 40 MEQ/1,000 ML INFUS.BAG IV SCH (08:34)
[2020-06-12 08:35] LABS: CHLORIDE 109 mmol/L (98-107); POTASSIUM 3.4 mmol/L (3.5-5.1); SODIUM 142 mmol/L (136-145)
[2020-06-12 08:44] LABS: ALBUMIN 2.6 g/dl (3.4-5.0); ANION GAP 5 MMOL/L (8-16); CALCIUM 8.1 mg/dL (8.5-10.1); CO2 28 mmol/L (21-32); GLUCOSE,RANDOM 104 mg/dL (74-106)
[2020-06-12 08:47] LABS: SGOT/AST 20 U/L (15-37); SGPT/ALT 18 U/L (13-61)
[2020-06-12 08:48] LABS: CREATININE 0.3 mg/dL (0.55-1.3)
[2020-06-12 08:49] LABS: TOT PROT 5.9 g/dl (6.4-8.2)
[2020-06-12 08:50] LABS: ALK PHOS 133 U/L (45-117); BILIRUBIN,TOTAL 0.3 mg/dL (0.2-1)
[2020-06-12 08:56] LABS: BLOOD UREA NITROGEN < 1.0 mg/dL (7-18)
[2020-06-12] MEDS ORDERED: cefTRIAXone SODIUM 1 GM VIAL ONE (09:14)
[2020-06-12] MEDS ORDERED: DEXTROSE 5%-WATER - 50 ML IVPB ONE (09:14)
[2020-06-12] MEDS: CEFTRIAXONE 1 GM in DEXTROSE 5%-WATER - 50 ML IVPB SCH (09:35)
[2020-06-12] MEDS: ENOXAPARIN NA (PORCINE) 40 MG/0.4 ML DISP.SYRIN SQ SCH (09:36)
[2020-06-12] MEDS: KCL 10 MEQ IVPB 10 MEQ/100 ML INFUS.BAG IVPB SCH ×2 (09:36→10:53)
[2020-06-12] MEDS: PANTOPRAZOLE SODIUM 40 MG VIAL IVPUSH SCH (09:37)
[2020-06-12] MEDS: NICOTINE 14 MG/24 HOURS TOPICAL PATCH TD SCH (09:37)
[2020-06-12] MEDS: POTASSIUM CHLORIDE ORAL LIQUID 20 MEQ/15 ML PO SCH (11:21)
[2020-06-12] MEDS ORDERED: SODIUM CHLORIDE 0.45% 1,000 ML with POTASSIUM CHLORIDE 40 MEQ IV SCH (13:00)
[2020-06-12] MEDS: POTASSIUM CHLORIDE 40 MEQ in SODIUM CHLORIDE 0.45% 1,000 ML IV SCH (18:23)
[2020-06-12] MEDS: ONDANSETRON 4 MG/2 ML VIAL IVPB PRN (20:35)
[2020-06-12] MEDS ORDERED: MORPHINE SULFATE 2 MG/ML VIAL IVPUSH ONE (23:15)
[2020-06-13] MEDS: VANCOMYCIN 250 MG/5 ML ORAL SOLUTION PO SCH ×4 (00:52→17:29)
[2020-06-13] MEDS: POTASSIUM CHLORIDE 40 MEQ in SODIUM CHLORIDE 0.45% 1,000 ML IV SCH ×3 (06:19→18:00)
[2020-06-13] MEDS ORDERED: DEXTROSE 5%-WATER - 50 ML IVPB ONE (08:59)
[2020-06-13] MEDS ORDERED: cefTRIAXone SODIUM 1 GM VIAL ONE (08:59)
[2020-06-13] MEDS: NICOTINE 14 MG/24 HOURS TOPICAL PATCH TD SCH (09:05)
[2020-06-13] MEDS: PANTOPRAZOLE SODIUM 40 MG VIAL IVPUSH SCH (09:05)
[2020-06-13] MEDS: CEFTRIAXONE 1 GM in DEXTROSE 5%-WATER - 50 ML IVPB SCH (09:05)
[2020-06-13] MEDS: POTASSIUM CHLORIDE ORAL LIQUID 20 MEQ/15 ML PO SCH (09:05)
[2020-06-13] MEDS: ENOXAPARIN NA (PORCINE) 40 MG/0.4 ML DISP.SYRIN SQ SCH (09:05)
[2020-06-13 12:50] LABS: POTASSIUM 3.8 mmol/L (3.5-5.1)
[2020-06-13 12:52] LABS: MAGNESIUM 1.9 mg/dL (1.8-2.4)
[2020-06-13 12:56] LABS: CREATININE 0.4 mg/dL (0.55-1.3)
[2020-06-13 13:07] LABS: BLOOD UREA NITROGEN 1.9 mg/dL (7-18)
[2020-06-13] MEDS: ACETAMINOPHEN 325 MG TABLET (FP) PO PRN (21:48)
[2020-06-13] MEDS ORDERED: traMADol HCL 50 MG TABLET PO ONE (22:59)
[2020-06-14] MEDS: POTASSIUM CHLORIDE 40 MEQ in SODIUM CHLORIDE 0.45% 1,000 ML IV SCH ×2 (00:53→05:28)
[2020-06-14] MEDS: VANCOMYCIN 250 MG/5 ML ORAL SOLUTION PO SCH ×4 (06:01→17:41)
[2020-06-14 08:55] LABS: CALCIUM 9.1 mg/dL (8.5-10.1); MAGNESIUM 2.2 mg/dL (1.8-2.4)
[2020-06-14 08:56] LABS: BLOOD UREA NITROGEN 4.4 mg/dL (7-18)
[2020-06-14 08:58] LABS: CREATININE 0.4 mg/dL (0.55-1.3)
[2020-06-14] MEDS ORDERED: cefTRIAXone SODIUM 1 GM VIAL ONE (10:33)
[2020-06-14] MEDS ORDERED: DEXTROSE 5%-WATER - 50 ML IVPB ONE (10:34)
[2020-06-14] MEDS: POTASSIUM CHLORIDE ORAL LIQUID 20 MEQ/15 ML PO SCH (10:54)
[2020-06-14] MEDS: NICOTINE 14 MG/24 HOURS TOPICAL PATCH TD SCH (10:54)
[2020-06-14] MEDS: ENOXAPARIN NA (PORCINE) 40 MG/0.4 ML DISP.SYRIN SQ SCH (10:54)
[2020-06-14] MEDS: PANTOPRAZOLE SODIUM 40 MG VIAL IVPUSH SCH (10:54)
[2020-06-14] MEDS: CEFTRIAXONE 1 GM in DEXTROSE 5%-WATER - 50 ML IVPB SCH (10:55)
[2020-06-14] MEDS: traMADol HCL 50 MG TABLET PO SCH ×2 (10:56→21:58)
[2020-06-14] MEDS: ACETAMINOPHEN 325 MG TABLET (FP) PO PRN (17:41)
[2020-06-14] MEDS ORDERED: MORPHINE SULFATE 2 MG/ML VIAL IVPUSH ONE (17:48)
[2020-06-14] MEDS ORDERED: ACETAMINOPHEN 1000 MG/100 ML VIAL (NON FORMULARY) IVPB PRN (17:51)
[2020-06-14] MEDS: D5-1/2NS+20 MEQ KCL - 20 MEQ/1,000 ML INFUS.BAG IV SCH (18:13)
[2020-06-15] MEDS: D5-1/2NS+20 MEQ KCL - 20 MEQ/1,000 ML INFUS.BAG IV SCH (01:45)
[2020-06-15] MEDS: VANCOMYCIN 250 MG/5 ML ORAL SOLUTION PO SCH ×2 (05:41)
[2020-06-15 05:59] VITALS: BP 118/63; PULSE 68; TEMP 98.9
[2020-06-15 07:41] LABS: BASO % 0.7 % (0-2.0); EOS % 6.9 % (0-4.5); HEMOGLOBIN 10.2 GM/dL (10.7-15.3); LYMPH % 31.2 % (8-40); MCH 28.7 pg (25.7-33.7); MCHC 32.9 g/dl (32.0-36.0); MEAN CELL VOLUME 87.3 fl (80-96); MEAN PLT VOLUME 8.2 fl (7.5-11.1); MONO % 11.9 % (3.8-10.2); NEUT % 49.3 % (42.8-82.8); PLATELET COUNT 440 K/MM3 (134-434); RBC 3.56 M/mm3 (3.60-5.2); RDW 17.5 % (11.6-15.6); WHITE BLOOD COUNT 10.4 K/mm3 (4.0-10.0)
[2020-06-15 08:05] LABS: POTASSIUM 3.9 mmol/L (3.5-5.1)
[2020-06-15 08:07] LABS: CALCIUM 8.5 mg/dL (8.5-10.1)
[2020-06-15 08:08] LABS: BLOOD UREA NITROGEN 6.4 mg/dL (7-18); MAGNESIUM 2.2 mg/dL (1.8-2.4)
[2020-06-15 08:11] LABS: CREATININE 0.4 mg/dL (0.55-1.3); PHOSPHOROUS 3.2 mg/dL (2.5-4.9)
[2020-06-15] MEDS: PANTOPRAZOLE SODIUM 40 MG VIAL IVPUSH SCH (09:07)
[2020-06-15] MEDS: CEFTRIAXONE 1 GM in DEXTROSE 5%-WATER - 50 ML IVPB SCH (09:08)
== END 2020-06-15 11:53 | disposition left against medical advice (07) | DRG 720 ==
LOC: JER 08:28 → JERBED 19:32 → J6S 06-08 12:07
PROVIDERS: ADMIT Internal Medicine; ATTEND Family Medicine
DX: A41.9 Sepsis, unspecified organism (principal); A04.72 Enterocolitis due to Clostridium difficile, not specified as recurrent; E87.6 Hypokalemia; N39.0 Urinary tract infection, site not specified; A02.0 Salmonella enteritis; E78.5 Hyperlipidemia, unspecified; J45.909 Unspecified asthma, uncomplicated; R00.0 Tachycardia, unspecified; F17.210 Nicotine dependence, cigarettes, uncomplicated; E66.9 Obesity, unspecified; Z68.35 Body mass index [BMI] 35.0-35.9, adult; I10 Essential (primary) hypertension; F31.9 Bipolar disorder, unspecified; D64.9 Anemia, unspecified; B96.1 Klebsiella pneumoniae [K. pneumoniae] as the cause of diseases classified elsewhere
CPT/HCPCS: 36415; 71045-TC-FY; 74019-TC-FY; 74176-TC; 74177-TC; 80048; 80053; 81003; 83605; 83735; 83993; 84100; 84484; 85025; 85027; 85610; 85651; 85730; 86140; 87040; 87045; 87046; 87086; 87177; 87186; 87209; 87324; 87449; 93005; 93010; 99285-25; C9803; G0008; J0131; J1644; Q2036; Q9967; U0003

== ENCOUNTER 2020-06-26 21:54 | Emergency (ER) | payer OTHER ==
[2020-06-26 22:09] VITALS: BMI 33.0
--- OUTSIDE RECORDS SUMMARY | 2020-06-26 22:32 | XMS ---
:1970 [facility] Providers Name Role Phone GALILEO Rosario Unavailable Unavailable Yunior Bernal Unavailable [phone] JANIE BANSAL Unavailable Unavailable ED STAFF PHYSICIAN, STAFF Unavailable Unavailable Arun Ly Unavailable [phone] Tiffani-Ismael Kelly Unavailable [phone] Tiffani-Ismael, Kelly Unavailable [phone] Janie Colon Unavailable [phone] Janie Colon Unavailable [phone] Re-disclosure Warning The records that you are about to access may contain information from federally- assisted alcohol or drug abuse programs. If such information is present, then the following federally mandated warning applies: This information has been disclosed to you from records protected by federal confidentiality rules (42 CFR part 2). The federal rules prohibit you from making any further disclosure of this information unless further disclosure is expressly permitted by the written consent of the person to whom it pertains or as otherwise permitted by 42 CFR part 2. A general authorization for the release of medical or other information is NOT sufficient for this purpose. The Federal rules restrict any use of the information to criminally investigate or prosecute any alcohol or drug abuse patient.The records that you are about to access may contain highly sensitive health information, the redisclosure of which is protected by Article 27-F of the [facility] Public Health law. If you continue you may haveaccess to information: Regarding HIV / AIDS; Provided by facilities licensed or operated by the [facility] Office of Mental Health; or Provided by the [facility] Office for People With Developmental Disabilities. If such information is present, then the following [facility] mandated warning applies: This information has been disclosed to you from confidential records which are protected by state law. State law prohibits you from making any further disclosure of this information without the specific written consent of the person to whom it pertains, or as otherwise permitted by law. Any unauthorized further disclosure in violation of state law may result in a fine or mcc sentence or both. A general authorization for the release of medical or other information is NOT sufficient authorization for further disclosure. Encounters Encounter Providers Location Date Indications Data Source(s ) OutpatientOFFICE/OU Attender: [facility] [place] [facility] 0 Jonathon hs Tiffani-Guevara 09:05:00 Medical AM EDT - Center) 0 09:05:00 AM EDT Attender: Mental Health NEXTGEN (Sa int [facility] 0 Rei Tiffani-Guevara 12:04:00 Medical PM EDT - Center) 0 12:04:00 PM EDT OutpatientOFFICE/OU Attender: Mental Health [place] XTGEN ([facility] TP[facility], [facility] 0 Jonathon hs Tiffani-Guevara 09:14:00 Medical AM EDT - Center) 0 09:14:00 AM EDT Attender: Mental Health NEXTGEN (Sa int [facility] 0 Rei Tiffani-Guevara 05:09:00 Medical PM EDT - Center) 0 05:09:00 PM EDT Attender: Mental Health NEXTGEN (Sa int [facility] 0 Rei Tiffani-Guevara 10:08:00 Medical AM EDT - Center) 0 10:08:00 AM EDT Attender: Mental Health NEXTGEN (Sa int [facility] 0 Rei Tiffani-Guevara 11:16:00 Medical AM EDT - Center) 0 11:16:00 AM EDT Attender: Mental Health NEXTGEN (Sa int [facility] 0 Rei Tiffani-Guevara 02:55:00 Medical PM EDT - Center) 0 02:55:00 PM EDT OutpatientOFFICE/OU Attender: [facility] Health NEXTGEN ([facility] TPATIENT VISIT, EST [facility] 0 Andreas phs 02:30:00 Medical PM EDT - Center) 0 02:30:00 PM EDT Attender: Mental Health NEXTGEN (Sa int [facility] 0 Rei Tiffani-Guevara 04:53:00 Medical PM EDT - Center) 0 04:53:00 PM EDT Individual Attender: [facility] NEXTGE N ([facility] ([facility] 0 Vinnie s Min) 01:54:00 Medical PM EDT - Center) 0 01:54:00 PM EDT OutpatientOFFICE/OU Attender: [facility] Mental [facility] NEXTGEN ([facility] TPATIENT VISIT, EST [facility] 0 Jonathon hs GarciaAttender: 10:41:00 Medical Arun Dar AM EDT - Center) 0 10:41:00 AM EDT Attender: Arun Mental Health NEXTGE N ([facility] 0 Rei 09:54:00 Medical AM EST - Center) 0 09:54:00 AM EST Attender: Arun Mental Health NEXTGE N ([facility] 0 Rei 11:28:00 Medical AM EST - Center) 0 11:28:00 AM EST Attender: [facility] Mental Health NEXTG EN ([facility] 0 Rei 03:23:00 Medical PM EST - Center) 0 03:23:00 PM EST Outpatient Attender: JANIE [facility]: 03:23:00 JANIE PM EST MAXIMILIANO GARCIA [facility] 0 Medical Center 12:00:00 AM EST - 7 12:00:00 AM EDT Emergency Attender: GALILEO Brandon [facility] MCLAIN WAttender: 9 Medical Center STAFF ED STAFF 02:20:00 PHYSICIANAdmitter AM EST - : GALILEO MCLAIN W 9 12:42:00 PM EST Patient discharged. Individual Attender: [facility] 08/13/2019 TRAN N ([facility] ([facility] 11:26:00 AM EST - Rei Min) 08/13/2019 Medical 11:26:00 AM EST Center) OutpatientOFFICE/OUTP Attender: [facility] 08/13/2019 BAO ([facility] ATIENT VISIT, EST [facility] 09:58:00 AM EST - Rei GarciaAttender: 08/13/2019 Medical Arun Darer 09:58:00 AM EST Center) Individual Attender: [facility] 07/16/2019 TRAN N ([facility] ([facility] 11:24:00 AM EST - Rei Min) 07/16/2019 Medical 11:24:00 AM EST Center) OutpatientOFFICE/OUTP Attender: [facility] 07/16/2019 BAO ([facility] ATIENT VISIT, EST [facility] 09:58:00 AM EST - Rei GarciaAttender: 07/16/2019 Medical Arun Darer 09:58:00 AM EST Center) Attender: [facility] 06/29/2019 TRAN N ([facility] 10:12:00 AM EST - Vinnie s 06/29/2019 Medical 10:12:00 AM EST Center) Attender: [facility] 06/21/2019 TRAN N ([facility] 11:43:00 AM EDT - Vinnie s 06/21/2019 Medical 11:43:00 AM EDT Center) OutpatientOFFICE/OUTP Attender: [facility] 06/18/2019 NEXTGEN ([facility] ATIENT VISIT, EST [facility] 10:28:00 AM EDT - Rei BernalAttender: 06/18/2019 Medical Arun Darbrooks 10:28:00 AM EDT Center) Individual Attender: [facility] 05/24/2019 NEXTGE N ([facility] ([facility] 11:55:00 AM EDT - Rei Bowden) 05/24/2019 Medical 11:55:00 AM EDT Center) OutpatientOFFICE/OUTP Attender: [facility] 05/21/2019 NEXTGEN ([facility] ATIENT VISIT, EST [facility] 10:27:00 AM EDT - Rei BernalAttender: 05/21/2019 Medical Arun Ly 10:27:00 AM EDT Center) Medications Medication Brand Start Product Dose Route Administrative Pharmacy [facility] Indications Reaction Description Data Name Date Form Instructions Instructions Source(s) Clonazepam Klonop 05/04/ active clonazep am 2 NEXTGEN 2 MG Oral in 2 2020 MG Oral ([facility] Tablet mg 12:00: Tablet Rei [Klonopin] tablet 00 AM [Klonopin] Medical Klonopin 2 EDT Center) mg tablet I stop #[id number] Mirtazapine Remeron 15 05/04/2020 1.00 ORAL active mirtazapine NEXTGEN 15 MG Oral mg tablet 12:00:00 AM {tablet} 15 MG Oral ([facility] Tablet EDT Tablet Rei [Remeron] [Remeron] Medic al Remeron 15 mg Center ) tablet quetiapine Seroquel 05/04/2020 1 {tablet} ORAL active quetiapine NEXTGEN 400 MG Oral 400 mg 12:00:00 AM 400 MG Oral ([facility] Tablet tablet EDT Tablet Rei [Seroquel] [Seroquel] Med ical Seroquel 400 Center) mg tablet Zolpidem Ambien 10 05/04/2020 1.00 ORAL active zol pidem NEXTGEN tartrate 10 mg tablet 12:00:00 AM {tablet} tartrate 10 ([facility] MG Oral EDT MG Oral Rei Tablet Tablet Medical [Ambien] [Ambien] Center) Ambien 10 mg tablet I stop #[id number] Clonazepam 2 Klonopin 2 04/07/2020 completed clonazepam 2 NEXTGEN MG Oral mg tablet 12:00:00 AM MG Or al ([facility] Tablet EDT Tablet Rei [Klonopin] [Klonopin] Med ical Klonopin 2 mg [place] ) tablet Mirtazapine Remeron 15 04/05/2020 1.0 ORAL completed mirtazapine NEXTGEN 15 MG Oral mg tablet 12:00:00 AM 0 15 MG Oral ([facility] Tablet EDT {ta Tablet Rei [Remeron] ble [Remeron] Medic al Remeron 15 mg t} [place] ) tablet quetiapine Seroquel 04/05/2020 1 ORAL completed quetiapine NEXTGEN 400 MG Oral 400 mg 12:00:00 AM {ta 400 MG Oral ([facility] Tablet tablet EDT ble Tablet Rei [Seroquel] t} [Seroquel] Med ical Seroquel 400 [place]) mg tablet Clonazepam 2 Klonopin 2 04/05/2020 completed clonazepam 2 NEXTGEN MG Oral mg tablet 12:00:00 AM MG Or al ([facility] Tablet EDT Tablet Rei [Klonopin] [Klonopin] Med ical Klonopin 2 mg [place] ) tablet I stop #[id number] Zolpidem Ambien 04/05/2020 1.00 ORAL completed zol pidem NEXTGEN tartrate 10 10 mg 12:00:00 AM {tablet} t artrate ([facility] MG Oral tablet EDT 10 MG Oral Andreas phs Tablet Tablet Medical [Ambien] [Ambien] Center) Ambien 10 mg tablet I stop #[id number] Zolpidem Ambien 03/31/2020 1.00 ORAL completed zol pidem NEXTGEN tartrate 10 10 mg 12:00:00 AM {tablet} t artrate ([facility] MG Oral tablet EDT 10 MG Oral Andreas phs Tablet Tablet Medical [Ambien] [Ambien] Center) Ambien 10 mg tablet I stop #[id number] Mirtazapine Remeron 15 03/31/2020 1.00 ORAL completed mirtazapine NEXTGEN 15 MG Oral mg tablet 12:00:00 AM {tablet} 15 MG Oral ([facility] Tablet EDT Tablet Rei [Remeron] [Remeron] Medic al Remeron 15 mg [place] ) tablet quetiapine Seroquel 03/31/2020 1 ORAL completed quetiapine NEXTGEN 400 MG Oral 400 mg 12:00:00 AM {tablet} 400 MG Oral ([facility] Tablet tablet EDT Tablet Rei [Seroquel] [Seroquel] Med ical Seroquel 400 [place]) mg tablet Clonazepam 2 Klonopin 2 03/31/2020 1 ORAL completed clonazepam 2 NEXTGEN MG Oral mg tablet 12:00:00 AM {tablet} M G Oral ([facility] Tablet EDT Tablet Rei [Klonopin] [Klonopin] Med ical Klonopin 2 mg [place] ) tablet I stop #[id number] Zolpidem Ambien 10 03/03/2020 1.00 ORAL completed Zolpidem NEXTGEN tartrate 10 mg tablet 12:00:00 AM {tbl} tartrate ([facility] MG Oral EDT 10 MG Oral Vinnie s Tablet Tablet Medical [Ambien] [Ambien] Center) Ambien 10 mg tablet I stop #[id number] Mirtazapine Remeron 15 03/03/2020 1.00 ORAL completed Mirtazapine NEXTGEN 15 MG Oral mg tablet 12:00:00 AM {tbl} 1 5 MG Oral ([facility] Tablet EDT Tablet Rei [Remeron] [Remeron] Medic al Remeron 15 mg [place] ) tablet quetiapine Seroquel 03/03/2020 1 {tbl} ORAL completed quetiapine NEXTGEN 400 MG Oral 400 mg 12:00:00 AM 400 MG Oral ([facility] Tablet tablet EDT Tablet Rei [Seroquel] [Seroquel] Med ical Seroquel 400 [place]) mg tablet Clonazepam 2 Klonopin 2 03/03/2020 1 {tbl} ORAL completed Clonazepam 2 NEXTGEN MG Oral mg tablet 12:00:00 AM MG Or al ([facility] Tablet EDT Tablet Rei [Klonopin] [Klonopin] Med ical Klonopin 2 mg [place] ) tablet I stop #[id number] quetiapine Seroquel 02/02/2020 1 {tbl} ORAL completed quetiapine NEXTGEN 400 MG Oral 400 mg 12:00:00 AM 400 MG Oral ([facility] Tablet tablet EDT Tablet Rei [Seroquel] [Seroquel] Med ical Seroquel 400 [place]) mg tablet Mirtazapine Remeron 15 02/02/2020 1.00 ORAL completed Mirtazapine NEXTGEN 15 MG Oral mg tablet 12:00:00 AM {tbl} 1 5 MG Oral ([facility] Tablet EDT Tablet Rei [Remeron] [Remeron] Medic al Remeron 15 mg Center ) tablet Zolpidem Ambien 10 02/02/2020 1.00 ORAL completed Zolpidem NEXTGEN tartrate 10 mg tablet 12:00:00 AM {tbl} tartrate 10 ([facility] MG Oral EDT MG Oral Rei Tablet Tablet Medical [Ambien] [Ambien] Center) Ambien 10 mg tablet I stop #[id number] Clonazepam 2 Klonopin 2 02/02/2020 1 {tbl} ORAL completed Clonazepam NEXTGEN MG Oral mg tablet 12:00:00 AM 2 MG Oral ([facility] Tablet EDT Tablet Rei [Klonopin] [Klonopin] Med ical Klonopin 2 [place]) mg tablet I stop #[id number] quetiapine Seroquel 01/05/2020 1 {tbl} ORAL completed quetiapine NEXTGEN 400 MG Oral 400 mg 12:00:00 AM 400 MG Oral ([facility] Tablet tablet EDT Tablet Rei [Seroquel] [Seroquel] Med ical Seroquel 400 [place]) mg tablet Mirtazapine Remeron 15 01/05/2020 1.00 ORAL completed Mirtazapine NEXTGEN 15 MG Oral mg tablet 12:00:00 AM {tbl} 1 5 MG Oral ([facility] Tablet EDT Tablet Rei [Remeron] [Remeron] Medic al Remeron 15 mg Center ) tablet Zolpidem Ambien 10 01/05/2020 1.00 ORAL completed Zolpidem NEXTGEN tartrate 10 mg tablet 12:00:00 AM {tbl} tartrate 10 ([facility] MG Oral EDT MG Oral Rei Tablet Tablet Medical [Ambien] [Ambien] [place]) Ambien 10 mg tablet I stop #[id number] Clonazepam 2 Klonopin 2 01/05/2020 1 {tbl} ORAL completed Clonazepam NEXTGEN MG Oral mg tablet 12:00:00 AM 2 MG Oral ([facility] Tablet EDT Tablet Rei [Klonopin] [Klonopin] Med ical Klonopin 2 Center) mg tablet I stop #[id number] Clonazepam 2 Klonopin 2 11/26/2019 1 {tbl} ORAL completed Clonazepam NEXTGEN MG Oral mg tablet 12:00:00 AM 2 MG Oral ([facility] Tablet EDT Tablet Rei [Klonopin] [Klonopin] Med ical Klonopin 2 [place]) mg tablet I stop #[id number] quetiapine Seroquel 11/26/2019 1 {tbl} ORAL completed quetiapine NEXTGEN 400 MG Oral 400 mg 12:00:00 AM 400 MG Oral ([facility] Tablet tablet EDT Tablet Rei [Seroquel] [Seroquel] Med ical Seroquel 400 [place]) mg tablet Zolpidem Ambien 10 11/26/2019 1.00 ORAL completed Zolpidem NEXTGEN tartrate 10 mg tablet 12:00:00 AM {tbl} tartrate 10 ([facility] MG Oral EDT MG Oral Rei Tablet Tablet Medical [Ambien] [Ambien] [place]) Ambien 10 mg tablet I stop #[id number] Mirtazapine Remeron 15 11/26/2019 1.00 ORAL completed Mirtazapine NEXTGEN 15 MG Oral mg tablet 12:00:00 AM {tbl} 1 5 MG Oral ([facility] Tablet EDT Tablet Rei [Remeron] [Remeron] Medic al Remeron 15 mg [place] ) tablet Clonazepam 2 Klonopin 2 11/05/2019 1 {tbl} ORAL completed Clonazepam 2 NEXTGEN MG Oral mg tablet 12:00:00 AM MG Or al ([facility] Tablet EDT Tablet Rei [Klonopin] [Klonopin] Med ical Klonopin 2 mg [place] ) tablet I stop #[id number] quetiapine Seroquel 11/05/2019 1 {tbl} ORAL completed quetiapine NEXTGEN 400 MG Oral 400 mg 12:00:00 AM 400 MG Oral ([facility] Tablet tablet EDT Tablet Rei [Seroquel] [Seroquel] Med ical Seroquel 400 [place]) mg tablet Zolpidem Ambien 10 11/05/2019 1.00 ORAL completed Zolpidem NEXTGEN tartrate 10 mg tablet 12:00:00 AM {tbl} tartrate 10 ([facility] MG Oral EDT MG Oral Rei Tablet Tablet Medical [Ambien] [Ambien] [place]) Ambien 10 mg tablet I stop #[id number] Mirtazapine Remeron 15 11/05/2019 1.00 ORAL completed Mirtazapine NEXTGEN 15 MG Oral mg tablet 12:00:00 AM {tbl} 1 5 MG Oral ([facility] Tablet EDT Tablet Rei [Remeron] [Remeron] Medic al Remeron 15 mg [place] ) tablet Clonazepam 2 Klonopin 2 10/12/2019 1 {tbl} ORAL completed Clonazepam 2 NEXTGEN MG Oral mg tablet 12:00:00 AM MG Or al ([facility] Tablet EST Tablet Rei [Klonopin] [Klonopin] Med ical Klonopin 2 mg [place] ) tablet I stop #[id number] Zolpidem Ambien 10 10/12/2019 1.00 ORAL completed Zolpidem NEXTGEN tartrate 10 mg tablet 12:00:00 AM {tbl} tartrate ([facility] MG Oral EST 10 MG Oral Vinnie s Tablet Tablet Medical [Ambien] [Ambien] [place]) Ambien 10 mg tablet I stop #[id number] quetiapine Seroquel 10/12/2019 1 {tbl} ORAL completed quetiapine NEXTGEN 400 MG Oral 400 mg 12:00:00 AM 400 MG Oral ([facility] Tablet tablet EST Tablet Rei [Seroquel] [Seroquel] Med ical Seroquel 400 [place]) mg tablet Mirtazapine Remeron 15 10/12/2019 1.00 ORAL completed Mirtazapine NEXTGEN 15 MG Oral mg tablet 12:00:00 AM {tbl} 1 5 MG Oral ([facility] Tablet EST Tablet Rei [Remeron] [Remeron] Medic al Remeron 15 mg [place] ) tablet Clonazepam 2 Klonopin 2 09/14/2019 1 {tbl} ORAL completed Clonazepam 2 NEXTGEN MG Oral mg tablet 12:00:00 AM MG Or al ([facility] Tablet EST Tablet Rei [Klonopin] [Klonopin] Med ical Klonopin 2 mg [place] ) tablet I stop #[id number] Zolpidem Ambien 10 09/14/2019 1.00 ORAL completed Zolpidem NEXTGEN tartrate 10 mg tablet 12:00:00 AM {tbl} tartrate ([facility] MG Oral EST 10 MG Oral Vinnie s Tablet Tablet Medical [Ambien] [Ambien] [place]) Ambien 10 mg tablet I stop #[id number] quetiapine Seroquel 09/14/2019 1 {tbl} ORAL completed quetiapine NEXTGEN 400 MG Oral 400 mg 12:00:00 AM 400 MG Oral ([facility] Tablet tablet EST Tablet Rei [Seroquel] [Seroquel] Med ical Seroquel 400 [place]) mg tablet Mirtazapine Remeron 15 09/14/2019 1.00 ORAL completed Mirtazapine NEXTGEN 15 MG Oral mg tablet 12:00:00 AM {tbl} 1 5 MG Oral ([facility] Tablet EST Tablet Rei [Remeron] [Remeron] Medic al Remeron 15 mg [place] ) tablet quetiapine Seroquel 08/13/2019 1 {tbl} ORAL completed quetiapine NEXTGEN 400 MG Oral 400 mg 12:00:00 AM 400 MG Oral ([facility] Tablet tablet EST Tablet Rei [Seroquel] [Seroquel] Med ical Seroquel 400 [place]) mg tablet Mirtazapine Remeron 15 08/13/2019 1.00 ORAL completed Mirtazapine NEXTGEN 15 MG Oral mg tablet 12:00:00 AM {tbl} 1 5 MG Oral ([facility] Tablet EST Tablet Rei [Remeron] [Remeron] Medic al Remeron 15 mg [place] ) tablet Clonazepam 2 Klonopin 2 08/13/2019 1 {tbl} ORAL completed Clonazepam 2 NEXTGEN MG Oral mg tablet 12:00:00 AM MG Or al ([facility] Tablet EST Tablet Rei [Klonopin] [Klonopin] Med ical Klonopin 2 mg [place] ) tablet I stop #[id number] Zolpidem Ambien 10 08/13/2019 1.00 ORAL completed Zolpidem NEXTGEN tartrate 10 mg tablet 12:00:00 AM {tbl} tartrate ([facility] MG Oral EST 10 MG Oral Vinnie s Tablet Tablet Medical [Ambien] [Ambien] [place]) Ambien 10 mg tablet I stop #[id number] Zolpidem Ambien 10 07/16/2019 1.00 ORAL completed Zolpidem NEXTGEN tartrate 10 mg tablet 12:00:00 AM {tbl} tartrate ([facility] MG Oral EST 10 MG Oral Vinnie s Tablet Tablet Medical [Ambien] [Ambien] [place]) Ambien 10 mg tablet I stop #[id number] Clonazepam 2 Klonopin 2 07/16/2019 1 {tbl} ORAL completed Clonazepam NEXTGEN MG Oral mg tablet 12:00:00 AM 2 MG Oral ([facility] Tablet EST Tablet Rei [Klonopin] [Klonopin] Med ical Klonopin 2 [place]) mg tablet I stop #[id number] quetiapine Seroquel 07/16/2019 1 {tbl} ORAL completed quetiapine NEXTGEN 400 MG Oral 400 mg 12:00:00 AM 400 MG Oral ([facility] Tablet tablet EST Tablet Rei [Seroquel] [Seroquel] Med ical Seroquel 400 [place]) mg tablet Mirtazapine Remeron 15 07/16/2019 1.00 ORAL completed Mirtazapine NEXTGEN 15 MG Oral mg tablet 12:00:00 AM {tbl} 1 5 MG Oral ([facility] Tablet EST Tablet Rei [Remeron] [Remeron] Medic al Remeron 15 mg [place] ) tablet Zolpidem Ambien 10 06/18/2019 1.00 ORAL completed Zolpidem NEXTGEN tartrate 10 mg tablet 12:00:00 AM {tbl} tartrate 10 ([facility] MG Oral EDT MG Oral Rei Tablet Tablet Medical [Ambien] [Ambien] [place]) Ambien 10 mg tablet I stop #[id number] Mirtazapine Remeron 15 06/18/2019 1.00 ORAL completed Mirtazapine NEXTGEN 15 MG Oral mg tablet 12:00:00 AM {tbl} 1 5 MG Oral ([facility] Tablet EDT Tablet Rei [Remeron] [Remeron] Medic al Remeron 15 mg [place] ) tablet quetiapine Seroquel 06/18/2019 1 {tbl} ORAL completed quetiapine NEXTGEN 400 MG Oral 400 mg 12:00:00 AM 400 MG Oral ([facility] Tablet tablet EDT Tablet Rei [Seroquel] [Seroquel] Med ical Seroquel 400 [place]) mg tablet Clonazepam 2 Klonopin 2 06/18/2019 1 {tbl} ORAL completed Clonazepam 2 NEXTGEN MG Oral mg tablet 12:00:00 AM MG Or al ([facility] Tablet EDT Tablet Rei [Klonopin] [Klonopin] Med ical Klonopin 2 mg [place] ) tablet I stop #[id number] Mirtazapine Remeron 05/21/2019 1.00 ORAL completed Mirtazapine NEXTGEN 15 MG Oral 15 mg 12:00:00 AM {tbl} 15 MG Oral ([facility] Tablet tablet EDT Tablet Rei [Remeron] [Remeron] Medic al Remeron 15 mg [place] ) tablet Zolpidem Ambien 10 05/21/2019 1.00 ORAL completed Zolpidem NEXTGEN tartrate 10 mg tablet 12:00:00 AM {tbl} tartrate 10 ([facility] MG Oral EDT MG Oral Rei Tablet Tablet Medical [Ambien] [Ambien] [place]) Ambien 10 mg tablet I stop #[id number] Clonazepam 2 Klonopin 2 05/21/2019 1 {tbl} ORAL completed Clonazepam NEXTGEN MG Oral mg tablet 12:00:00 AM 2 MG Oral ([facility] Tablet EDT Tablet Rei [Klonopin] [Klonopin] Med ical Klonopin 2 [place]) mg tablet I stop #[id number] quetiapine 400 Seroquel 05/21/2019 1 {tbl} ORAL completed quetiapine NEXTGEN MG Oral Tablet 400 mg 12:00:00 AM 4 00 MG Oral (Saint [Seroquel] tablet EDT Tablet Jonathon hs Seroquel 400 mg [Seroquel ] Medical tablet [place]) Trazodone trazodone 04/21/2019 1 {tbl} ORAL completed take 1 NEXTGEN Hydrochloride 100 mg 12:00:00 AM ta blet by ([facility] 100 MG Oral tablet EDT oral route Rei Tablet every day Medical trazodone 100 at bedtime Center) mg tablet quetiapine 400 Seroquel 04/21/2019 1 {tbl} ORAL completed quetiapine NEXTGEN MG Oral Tablet 400 mg 12:00:00 AM 4 00 MG Oral ([facility] [Seroquel] tablet EDT Tablet Jonathon hs Seroquel 400 mg [Seroquel ] Medical tablet [place]) Zolpidem Ambien 10 04/21/2019 1.00 ORAL completed Zolpidem NEXTGEN tartrate 10 MG mg tablet 12:00:00 AM {tbl} tartrate 10 ([facility] Oral Tablet EDT MG Oral Jonathon hs [Ambien] Ambien Tablet Me dical 10 mg tablet [Ambien] [facility]) I stop #[id number] Clonazepam 2 Klonopin 2 04/21/2019 1 {tbl} ORAL completed Clonazepam NEXTGEN MG Oral mg tablet 12:00:00 AM 2 MG Oral ([facility] Tablet EDT Tablet Rei [Klonopin] [Klonopin] Med ical Klonopin 2 [place]) mg tablet I stop #[id number] Insurance Providers Payer name Policy type Policy ID Covered Covered alliance party's Policy P landy / Coverage alliance party ID relationship to [place] [employer] ormation type [place] AFFINITY [id number] SP [id number] BEACON O [id number] HEALTH-AFFIN ITY CLMS AFFINITY O [id number] HEALTH PLAN MEDICAID [id number] Problems, Conditions, and Diagnoses Code Display Name Description Problem Type Effective Data Sour ce(s) Dates F33.0 Major depressive MAJOR DEPRESSIVE Diagnosis 09/04/2019 Sa zackary Min[facility] disorder, DISORDER, 03:23:00 PM Medical Emilio pineda recurrent, mild RECURRENT, MILD EST F17.210 Nicotine NICOTINE Diagnosis 08/18/2019 [facility] dependence, DEPENDENCE, 02:20:[address] cigarettes, CIGARETTES, EST uncomplicated UNCOMPLICATED I10 Essential ESSENTIAL Diagnosis 08/18/2019 [facility] (primary) (PRIMARY) 02:20:00 AM Medical Emilio pineda hypertension HYPERTENSION EST J45.909 Unspecified UNSPECIFIED Diagnosis 08/18/2019 [facility] [place] [facility] asthma, ASTHMA, 02:20:00 AM Medical Emilio r uncomplicated UNCOMPLICATED EST K08.89 Other specified OTHER SPECIFIED Diagnosis 08/18/2019 Amira Minaya disorders of teeth DISORDERS OF TEETH 02:20:00 AM Medical Center and supporting AND SUPPORTING EST structures STRUCTURES K02.9 Dental caries, DENTAL CARIES, Diagnosis 08/18/2019 [facility] unspecified UNSPECIFIED 02:20:[address] EST J02.9 Acute pharyngitis, ACUTE PHARYNGITIS, Diagnosis 9 [facility] unspecified UNSPECIFIED 02:20:[address] EST Surgeries/Procedures Procedure Description Date Indications Data Source(s) OFFICE/OUTPATIENT VISIT, 05/04/2020 NEX TGEN ([facility] EST 12:00:00 AM EDT Rei Garcia sandra - 05/04/2020 Center) 12:00:00 AM EDT OFFICE/OUTPATIENT VISIT, 04/05/2020 NEX TGEN ([facility] EST 12:00:00 AM EDT [facility] - 04/05/2020 Center) 12:00:00 AM EDT Psychotherapy (30 Mins) 01/05/2020 NEXT GEN ([facility] W/ E&M 12:00:00 AM EDT [facility] - 01/05/2020 [place]) 12:00:00 AM EDT OFFICE/OUTPATIENT VISIT, 01/05/2020 NEX TGEN ([facility] EST 12:00:00 AM EDT [facility] 01/05/2020 Center) 12:00:00 AM EDT Psychotherapy (30 Mins) 11/05/2019 NEXT GEN ([facility] W/ E&M 12:00:00 AM EDT [facility] 11/05/2019 [place]) 12:00:00 AM EDT OFFICE/OUTPATIENT VISIT, 11/05/2019 NEX TGEN ([facility] EST 12:00:00 AM EDT [facility] 11/05/2019 [place]) 12:00:00 AM EDT Individual Psychotherapy 11/05/2019 NEX TGEN ([facility] (30 Min) 12:00:00 AM EDT [facility] 11/05/2019 Center) 12:00:00 AM EDT Psychotherapy (30 Mins) 08/13/2019 NEXT GEN ([facility] W/ E&M 12:00:00 AM EST [facility] - 08/13/2019 [place]) 12:00:00 AM EST OFFICE/OUTPATIENT VISIT, 08/13/2019 NEX TGEN ([facility] EST 12:00:00 AM EST [facility] - 08/13/2019 [place]) 12:00:00 AM EST Individual Psychotherapy 08/13/2019 NEX TGEN ([facility] (30 Min) 12:00:00 AM EST [facility] - 08/13/2019 [place]) 12:00:00 AM EST Psychotherapy (30 Mins) 07/16/2019 NEXT GEN ([facility] W/ E&M 12:00:00 AM EST [facility] - 07/16/2019 [place]) 12:00:00 AM EST OFFICE/OUTPATIENT VISIT, 07/16/2019 NEX TGEN ([facility] EST 12:00:00 AM EST [facility] - 07/16/2019 [place]) 12:00:00 AM EST Individual Psychotherapy 07/16/2019 NEX TGEN ([facility] (30 Min) 12:00:00 AM EST [facility] - 07/16/2019 [place]) 12:00:00 AM EST Psychotherapy (30 Mins) 06/18/2019 NEXT GEN ([facility] W/ E&M 12:00:00 AM EDT [facility] - 06/18/2019 [place]) 12:00:00 AM EDT OFFICE/OUTPATIENT VISIT, 06/18/2019 NEX TGEN ([facility] EST 12:00:00 AM EDT [facility] 06/18/2019 [place]) 12:00:00 AM EDT Individual Psychotherapy 05/24/2019 NEX TGEN ([facility] (30 Min) 12:00:00 AM EDT [facility] - 05/24/2019 [place]) 12:00:00 AM EDT Psychotherapy (30 Mins) 05/21/2019 NEXT GEN ([facility] W/ E&M 12:00:00 AM EDT [facility] - 05/21/2019 [place]) 12:00:00 AM EDT OFFICE/OUTPATIENT VISIT, 05/21/2019 NEX TGEN ([facility] EST 12:00:00 AM EDT [facility] - 05/21/2019 [place]) 12:00:00 AM EDT Results ID Date Data Source [id number] 06/18/2020 01:20:00 PM EDT [facility] Name Value Range Interpretation Description Data Sup porting Code Source(s) Document(s ) SARS [facility] coronavirus 2 RNA This lab was ordered by [facility] and reported by [facility]. ID Date Data Source [id number] 06/07/2020 09:30:00 AM EDT [facility] Name Value Range Interpretation Description Data Sup porting Code Source(s) Document(s ) SARS [facility] coronavirus 2 RNA This lab was ordered by [facility] and reported by [facility]. ID Date Data Source [id number] 08/18/2019 03:38:00 AM EST [facility] 500 Name Value Range Interpretation Description Data Sup porting Code Source(s) Document(s ) UNK <item><content [facility] styleCode="Grecia Rei d">[facility] Medical Report Center </content><br/ ><table><tbody ><tr><td>Speci men Number:</td><t d>[id number]</t d></tr><tr><td >Sample Collection Date/Time: </td><td>08/18 3:38 AM</td></tr><t r><td>Specimen Source:</td><t d>THROAT</td>< /tr><tr><td>Th roat-Nose Culture:</td>< td>Collection Plate Date: 08/18/2019 03:45 </td></tr><tr> <td>Culture Status:</td><t d>Preliminary </td></tr><tr> <td>Culture Report:</td><t d>Culture in progress </td></tr></tb andrew></table></ item> UNK <item><content [facility] styleCode="Grecia Minaya d">Culture Medical Status Center </content><br/ ><table><tbody ><tr><td>Speci men Number:</td><t d>[id number]</t d></tr><tr><td >Sample Collection Date/Time: </td><td>08/18 3:38 AM</td></tr><t r><td>Specimen Source:</td><t d>THROAT</td>< /tr><tr><td>Cu lture Report:</td><t d>NEGATIVE FOR BETA HEMOLYTIC STREPTOCOCCI </td></tr><tr> <td>Throat-Nos e Culture:</td>< td>Collection Plate Date: 08/18/2019 03:45 </td></tr><tr> <td>Culture Status:</td><t d>Final </td></tr></tb andrew></table></ item> Streptococcus NEGATIVE <item><content [facility] pyogenes Ag styleCode="Grecia Minaya [Presence] in d">Rapid Strep Medical Unspecified A Center specimen by </content><br/ Immunoassay ><table><tbody ><tr><td>Speci men Number:</td><t d>[id number]</t d></tr><tr><td >Sample Collection Date/Time: </td><td>08/18 3:38 AM</td></tr><t r><td>Specimen Source:</td><t d>THROAT</td>< /tr><tr><td>Ra pid Strep A:</td><td>NEG ATIVE </td></tr></tb andrew></table></ item> ID Date Data Source [id number] 08/18/2019 03:38:00 AM JOSEFA Bowers [facility] 0500 Name Value Range Interpretation Description Data Sup porting Code Source(s) Document(s ) Erythrocyte mean 80.0-100 <content [facility] corpuscular .0 styleCode="Bold Rei volume [Entitic ">Mean Medical volume] by Corpuscular Center Automated count Volume </content>90.2 FL<content styleCode="Ital ics"> (80.0-100.0 FL)</content> Hematocrit 36.0-46. Below low normal <content [facility] [Volume 0 styleCode="Bold Rei Fraction] of ">Hematocrit Medical Blood by </content>31.2 Center Automated count % L<content styleCode="Ital ics"> (36.0-46.0 %)</content> Hemoglobin 12.3-16. Below low normal <content [facility] [Mass/volume] in 0 styleCode="Bold Rei Blood ">Hemoglobin Medical </content>10.3 Center G/DL L<content styleCode="Ital ics"> (12.3-16.0 G/DL)</content> Leukocytes 4.4-11.0 <content [facility] [#/volume] in styleCode="Bold Rei Blood by ">White Blood Medical Automated count Cell Count Center </content>10.14 KCUMM<content styleCode="Ital ics"> (4.4-11.0 KCUMM)</content > Erythrocytes 4.0-5.1 Below low normal <content [facility] [#/volume] in styleCode="Bold Rei Blood by ">Red Blood Medical Automated count Cell Count Center </content>3.46 MCUMM L<content styleCode="Ital ics"> (4.0-5.1 MCUMM)</content > Erythrocyte mean 26.0-34. <content [facility] corpuscular 0 styleCode="Bold Rei hemoglobin ">Mean Medical [Entitic mass] Corposcular Center by Automated Hemoglobin count </content>29.8 PG<content styleCode="Ital ics"> (26.0-34.0 PG)</content> Platelets 130-400 <content [facility] [#/volume] in styleCode="Bold Rei Blood by ">Platelet Medical Automated count Count Center </content>349 KCUMM<content styleCode="Ital ics"> (130-400 KCUMM)</content > Erythrocyte 11.5-14. Above high <content [facility] distribution 5 normal styleCode="Bold Rei width [Ratio] by ">Red Cell Medical Automated count Distribution Center Width </content>15.9 % H<content styleCode="Ital ics"> (11.5-14.5 %)</content> Platelet mean 8.0-11.0 <content [facility] volume [Entitic styleCode="Bold Rei volume] in Blood ">Mean Platelet Medical by Automated Volume Center count </content>9.5 FL<content styleCode="Ital ics"> (8.0-11.0 FL)</content> Erythrocyte mean 32.0-37. <content [facility] corpuscular 0 styleCode="Bold Rei hemoglobin ">Mean Corpus. Medical concentration Hgb Center [Mass/volume] by Concentration Automated count (MCHC) </content>33.0 G/DL<content styleCode="Ital ics"> (32.0-37.0 G/DL)</content> UNK 0.0 <content [facility] styleCode="Bold Rei ">Nucleated Red Medical Blood Cell Center Count </content>0.00 KCUMM<content styleCode="Ital ics"> (0.0 KCUMM)</content > UNK 0 <content [facility] styleCode="Bold Rei ">Nucleated Red Medical Blood Cell Center </content>0.0 /100<content styleCode="Ital ics"> (0 /100)</content> ID Date Data Source GFR(Creatinine).[id number] 08/18/2019 03:38:00 AM JOSEFA raza [facility] 0-0500 Name Value Range Interpretation Code Description Data Kelsy rce(s) Supporting Document(s ) UNK > 60 <content [facility] styleCode="Bold"> Medical Cent er EGFR </content>63 GFR<content styleCode="Italic s"> (> 60 GFR)</content> ID Date Data Source [id number] 08/18/2019 03:38:00 AM EST [facility] Name Value Range Interpretation Description Data Sup porting Code Source(s) Document(s ) Chloride 98-107 Above high normal <content [facility] [Moles/volume] styleCode="Grecia Rei in Serum or d">Chloride Medical Plasma </content>111 Center MEQ/L H<content styleCode="Arlette lics"> (98-107 MEQ/L)</conten t> Carbon 22-30 <content [facility] dioxide, total styleCode="Grecia Rei [Moles/volume] d">Carbon Medical in Serum or Dioxide Center Plasma </content>22 MEQ/L<content styleCode="Arlette lics"> (22-30 MEQ/L)</conten t> Sodium 137-145 <content [facility] [Moles/volume] styleCode="Grecia Rei in Serum or d">Sodium Medical Plasma </content>141 Center MEQ/L<content styleCode="Arlette lics"> (137-145 MEQ/L)</conten t> Potassium 3.5-5.3 <content [facility] [Moles/volume] styleCode="Grecia Rei in Serum or d">Potassium Medical Plasma </content>4.3 Center MEQ/L<content styleCode="Arlette lics"> (3.5-5.3 MEQ/L)</conten t> Calcium 8.4-10.2 <content [facility] [Mass/volume] styleCode="Grecia Rei in Serum or d">Calcium Medical Plasma </content>9.4 Center MG/DL<content styleCode="Arlette lics"> (8.4-10.2 MG/DL)</conten t> Creatinine 0.5-1.3 <content [facility] [Mass/volume] styleCode="Grecia Rei in Serum or d">Creatinine Medical Plasma </content>1.0 Center MG/DL<content styleCode="Arlette lics"> (0.5-1.3 MG/DL)</conten t> UNK 7-17 <content [facility] styleCode="Grecia Rei d">BUN Medical </content>11 Center MG/DL<content styleCode="Arlette lics"> (7-17 MG/DL)</conten t> UNK > 60 <content [facility] styleCode="Grecia Rei d">EGFR Medical </content>63 Center GFR<content styleCode="Arlette lics"> (> 60 GFR)</content> Glucose 74-106 Above high normal <content [facility] [Mass/volume] styleCode="Grecia Rei in Serum or d">Glucose Medical Plasma </content>109 Center MG/DL H<content styleCode="Arlette lics"> (74-106 MG/DL)</conten t> Procedure Social History Code Duration Value Status Description Data Source(s ) Caffeine Use 05/04/2020 completed NEXTGEN ([place] [facility] 12:00:00 AM T [facility]) Smoking 05/04/2020 Unknown if completed Unknown if ever [facility]EXTGEN ( [facility] 12:00:00 AM EDT ever smoked smoked [facility]) Caffeine Use 03/31/2020 completed NEXTGEN ([place] [facility] 12:00:00 AM T [facility]) Smoking 08/18/2019 Daily Smoker completed Daily Smoker [facility] 04:04:00 AM EST Medical C enter Smoking 08/18/2019 Daily Smoker completed Daily Smoker [facility] 02:40:00 AM EST Medical C enter Vital Signs ID Date Data Source UNK Name Value Range Interpretation Code Description Data Source(s) Respiratory rate 16 /min 16 /min [facility] Heart rate 88 /min 88 /min [facility] Diastolic blood 105 mm[Hg] 105 mm[Hg] [facility] pressure Medical Center Systolic blood 155 mm[Hg] 155 mm[Hg] [facility] pressure Medical Center Body weight 73.178433 kg 73.784548 kg [facility] Measured Medical Center Body temperature 36.704425 36.466791 [facility] Respiratory rate 18 /min 18 /min [facility] Oxygen saturation 98 % 98 % [facility] Arterial blood Medical Center by Pulse oximetry Heart rate 92 /min 92 /min [facility] Body height 154.860903 154.875675 cm [facility] Diastolic blood 86 mm[Hg] 86 mm[Hg] [facility] pressure Medical Center Systolic blood 182 mm[Hg] 182 mm[Hg] [facility] Body mass index 30.3 kg/m2 30.3 kg/m2 [facility] (BMI) [Ratio] Medical Sylvia ter Patient Treatment Plan of Care Planned Activity Planned Date Details Description Data Source (s) quetiapine 400 MG Oral 05/04/2020 12:00:00 NEXTGEN ([facility] Tablet [Seroquel] AM [facility]) Mirtazapine 15 MG Oral 05/04/2020 12:00:00 NEXTGEN ([facility] Tablet [Remeron] [facility]) Clonazepam 2 MG Oral 05/04/2020 12:00:00 NEXTGEN ([facility] Tablet [Klonopin] [facility]) Zolpidem tartrate 10 MG 05/04/2020 12:00:00 NEXTGEN ([facility] Oral Tablet [Ambien] [facility]) Clonazepam 2 MG Oral 04/07/2020 12:00:00 NEXTGEN ([facility] Tablet [Klonopin] [facility]) quetiapine 400 MG Oral 04/05/2020 12:00:00 NEXTGEN ([facility] Tablet [Seroquel] AM [facility]) Mirtazapine 15 MG Oral 04/05/2020 12:00:00 NEXTGEN ([facility] Tablet [Remeron] [facility]) Clonazepam 2 MG Oral 04/05/2020 12:00:00 NEXTGEN ([facility] Tablet [Klonopin] AM [facility]) Zolpidem tartrate 10 MG 04/05/2020 12:00:00 NEXTGEN ([facility] Oral Tablet [Ambien] AM [facility]) quetiapine 400 MG Oral 03/31/2020 12:00:00 NEXTGEN ([facility] Tablet [Seroquel] AM [facility]) Mirtazapine 15 MG Oral 03/31/2020 12:00:00 NEXTGEN ([facility] Tablet [Remeron] AM [facility]) Clonazepam 2 MG Oral 03/31/2020 12:00:00 NEXTGEN ([facility] Tablet [Klonopin] AM [facility]) Zolpidem tartrate 10 MG 03/31/2020 12:00:00 NEXTGEN ([facility] Oral Tablet [Ambien] [facility]) Zolpidem tartrate 10 MG 03/03/2020 12:00:00 NEXTGEN ([facility] Oral Tablet [Ambien] [facility]) Clonazepam 2 MG Oral 03/03/2020 12:00:00 NEXTGEN ([facility] Tablet [Klonopin] [facility]) Mirtazapine 15 MG Oral 03/03/2020 12:00:00 NEXTGEN ([facility] Tablet [Remeron] [facility]) quetiapine 400 MG Oral 03/03/2020 12:00:00 NEXTGEN ([facility] Tablet [Seroquel] AM [facility]) quetiapine 400 MG Oral 02/02/2020 12:00:00 NEXTGEN ([facility] Tablet [Seroquel] AM [facility]) Mirtazapine 15 MG Oral 02/02/2020 12:00:00 NEXTGEN ([facility] Tablet [Remeron] AM [facility]) Clonazepam 2 MG Oral 02/02/2020 12:00:00 NEXTGEN ([facility] Tablet [Klonopin] AM [facility]) Zolpidem tartrate 10 MG 02/02/2020 12:00:00 NEXTGEN ([facility] Oral Tablet [Ambien] AM [facility]) Zolpidem tartrate 10 MG 01/05/2020 12:00:00 NEXTGEN ([facility] Oral Tablet [Ambien] AM [facility]) Clonazepam 2 MG Oral 01/05/2020 12:00:00 NEXTGEN ([facility] Tablet [Klonopin] AM [facility]) Mirtazapine 15 MG Oral 01/05/2020 12:00:00 NEXTGEN ([facility] Tablet [Remeron] AM [facility]) quetiapine 400 MG Oral 01/05/2020 12:00:00 NEXTGEN ([facility] Tablet [Seroquel] AM [facility]) Zolpidem tartrate 10 MG 11/26/2019 12:00:00 NEXTGEN ([facility] Oral Tablet [Ambien] [facility]) Clonazepam 2 MG Oral 11/26/2019 12:00:00 NEXTGEN ([facility] Tablet [Klonopin] [facility]) Mirtazapine 15 MG Oral 11/26/2019 12:00:00 NEXTGEN ([facility] Tablet [Remeron] AM [facility]) quetiapine 400 MG Oral 11/26/2019 12:00:00 NEXTGEN ([facility] Tablet [Seroquel] AM [facility]) quetiapine 400 MG Oral 11/05/2019 12:00:00 NEXTGEN ([facility] Tablet [Seroquel] AM [facility]) Zolpidem tartrate 10 MG 11/05/2019 12:00:00 NEXTGEN ([facility] Oral Tablet [Ambien] [facility]) Mirtazapine 15 MG Oral 11/05/2019 12:00:00 NEXTGEN ([facility] Tablet [Remeron] AM [facility]) Clonazepam 2 MG Oral 11/05/2019 12:00:00 NEXTGEN ([facility] Tablet [Klonopin] AM [facility]) Clonazepam 2 MG Oral 10/12/2019 12:00:00 NEXTGEN ([facility] Tablet [Klonopin] AM [facility]) Mirtazapine 15 MG Oral 10/12/2019 12:00:00 NEXTGEN ([facility] Tablet [Remeron] AM [facility]) Zolpidem tartrate 10 MG 10/12/2019 12:00:00 NEXTGEN ([facility] Oral Tablet [Ambien] [facility]) quetiapine 400 MG Oral 10/12/2019 12:00:00 NEXTGEN ([facility] Tablet [Seroquel] AM [facility]) Clonazepam 2 MG Oral 09/14/2019 12:00:00 NEXTGEN ([facility] Tablet [Klonopin] [facility]) Mirtazapine 15 MG Oral 09/14/2019 12:00:00 NEXTGEN ([facility] Tablet [Remeron] AM [facility]) Zolpidem tartrate 10 MG 09/14/2019 12:00:00 NEXTGEN ([facility] Oral Tablet [Ambien] [facility]) quetiapine 400 MG Oral 09/14/2019 12:00:00 NEXTGEN ([facility] Tablet [Seroquel] AM [facility]) Clonazepam 2 MG Oral 08/13/2019 12:00:00 NEXTGEN ([facility] Tablet [Klonopin] [facility]) Mirtazapine 15 MG Oral 08/13/2019 12:00:00 NEXTGEN ([facility] Tablet [Remeron] [facility]) Zolpidem tartrate 10 MG 08/13/2019 12:00:00 NEXTGEN ([facility] Oral Tablet [Ambien] [facility]) quetiapine 400 MG Oral 08/13/2019 12:00:00 NEXTGEN ([facility] Tablet [Seroquel] [facility]) Clonazepam 2 MG Oral 07/16/2019 12:00:00 NEXTGEN ([facility] Tablet [Klonopin] AM [facility]) Mirtazapine 15 MG Oral 07/16/2019 12:00:00 NEXTGEN ([facility] Tablet [Remeron] [facility]) Zolpidem tartrate 10 MG 07/16/2019 12:00:00 NEXTGEN ([facility] Oral Tablet [Ambien] [facility]) quetiapine 400 MG Oral 07/16/2019 12:00:00 NEXTGEN ([facility] Tablet [Seroquel] AM [facility]) quetiapine 400 MG Oral 06/18/2019 12:00:00 NEXTGEN ([facility] Tablet [Seroquel] AM [facility]) Mirtazapine 15 MG Oral 06/18/2019 12:00:00 NEXTGEN ([facility] Tablet [Remeron] AM [facility]) Clonazepam 2 MG Oral 06/18/2019 12:00:00 NEXTGEN ([facility] Tablet [Klonopin] AM [facility]) Zolpidem tartrate 10 MG 06/18/2019 12:00:00 NEXTGEN ([facility] Oral Tablet [Ambien] AM [facility]) Mirtazapine 15 MG Oral 05/21/2019 12:00:00 NEXTGEN ([facility] Tablet [Remeron] AM [facility]) Clonazepam 2 MG Oral 05/21/2019 12:00:00 NEXTGEN ([facility] Tablet [Klonopin] AM [facility]) Zolpidem tartrate 10 MG 05/21/2019 12:00:00 NEXTGEN ([facility] Oral Tablet [Ambien] AM [facility]) quetiapine 400 MG Oral 05/21/2019 12:00:00 NEXTGEN ([facility] Tablet [Seroquel] AM [facility]) Zolpidem tartrate 10 MG 04/21/2019 12:00:00 NEXTGEN ([facility] Oral Tablet [Ambien] AM [facility]) Clonazepam 2 MG Oral 04/21/2019 12:00:00 NEXTGEN ([facility] Tablet [Klonopin] AM [facility]) quetiapine 400 MG Oral 04/21/2019 12:00:00 NEXTGEN ([facility] Tablet [Seroquel] AM [facility]) Trazodone Hydrochloride 04/21/2019 12:00:00 NEXTGEN ([facility] 100 MG Oral Tablet AM [facility])
[2020-06-26] MEDS ORDERED: ONDANSETRON 4 MG/2 ML VIAL IVPUSH ONE (23:30)
[2020-06-26] MEDS ORDERED: SODIUM CHLORIDE 0.9% 500 ML INFUS.BAG IV ONE (23:30)
[2020-06-26] MEDS ORDERED: ACETAMINOPHEN 1000 MG/100 ML VIAL (NON FORMULARY) IVPB ONE (23:47)
--- NOTE | 2020-06-26 23:47 | PDOC ---
History of Present Illness - General Chief Complaint: Pain Stated Complaint: ABD PAIN/URINERY PROBLEM Time Seen by Provider: 06/26/20 22:45 - History of Present Illness Initial Comments: 49yo F with PMH HTN, cholelithiasis, hx of nephrolithasis, recent admission from 06/07-06/15 and 06/17-06/22 for Cdiff and colitis positive for Salmonella and Klebsiella UTI presents with RUQ abdominal pain, left sided abdominal pain, and urinary symptoms. Pt states that she was improved prior to discharge, but states that she has been worsening since then with recurrent diarrhea (~11 episodes/day), nausea, vomiting (~6 episodes of NBNB emesis/day) and >10/10 abdominal pain. Describes abdominal pain as intermittent, feeling like contractions, nonradiating, no notable AR/RF, no improvement with Percocet. States that she has been unable to tolerate PO for the last two days due to emesis. Reports urinary symptoms similar to previous admission. Was discharged with Bentyl, phenazopyridine, and vancomycin, which reports she has been taking. Reports subjective fevers/chills, headache, lightheadedness Denies chest pain, SOB, peripheral edema. PCP: Haley PMH: see abpve PSH: hx of gastric sleeve with abdominoplasty Allergies: NKDA Review of Systems CONSTITUTIONAL: reports subjective fever, chills HEENT: denies rhinorrhea, nasal congestion, sore throat CARDIOVASCULAR: reports lightheadedness; denies chest pain, syncope, palpitations, peripheral edema RESPIRATORY: denies cough, shortness of breath GASTROINTESTINAL: reports abdominal pain, nausea, vomiting, diarrhea GENITOURINARY: denies dysuria, frequency, urgency, flank pain MUSCULOSKELETAL: reports back pain HEMATOLOGIC/IMMUNOLOGIC: denies easy bleeding, easy bruising NEUROLOGIC: reports headache, denies loss of consciousness, focal weakness or pa resthesias SKIN: denies rash, itching, pallor Physical Exam General: awake, alert, fully oriented, in no acute distress, well developed, well nourished Head: normocephalic, atraumatic Eyes: PERRL, EOMI, anicteric sclera, conjunctiva clear Neck: supple, normal ROM, no LAD, JVD or masses Lung: equal breath sounds b/l, CTA b/l, no crackles, wheezes Heart: RRR, normal S1, S2, no murmurs appreciated Abdomen: soft, diffusely tender to palpation with maximal at RUQ, normoactive bowel sounds, no guarding, rebound, masses Extremities: normal ROM, no edema, no erythema or tenderness Neuro: CN2-12 grossly intact, moves all extremities, normal speech, normal gait, sensation intact Skin: warm, dry, normal skin turgor, capillary refill <2 seconds, no rashes or lesions noted MDM 49yo F with PMH HTN, cholelithiasis, hx of nephrolithasis, recent admission from 06/07-06/15 and 06/17-06/22 for Cdiff and colitis positive for Salmonella and Klebsiella UTI presents with recurrent RUQ abdominal pain, left sided abdominal pain, and urinary symptoms. Vitals WNL DDx including but not limited to: colitis, UTI, cholelithiasis Workup: CBC, CMP, UA/UC, lipase TX: IV fluids, ofirmev, zofran 06/27/20 00:00 Pt signed out to night team Past History - Medical History Allergies/Adverse Reactions: Allergies Allergy/AdvReac Type Severity Reaction Status Date / Time No Known Allergies Allergy Verified 06/18/20 11:48 Home Medications: Ambulatory Orders Dicyclomine HCl [Bentyl -] 10 mg PO Q12H #60 capsule 06/22/20 Phenazopyridine HCl [Pyridium -] 100 mg PO TID #30 tablet 06/22/20 Vancomycin Oral Solution 250 mg PO Q6HPO #60 ml 06/22/20 oxyCODONE HCL [Roxicodone -] 5 mg PO Q6H PRN tablet 06/22/20 Anemia: No Asthma: Yes Cancer: No Cardiac Disorders: No CVA: No COPD: No CHF: No Dementia: No Diabetes: No GI Disorders: Yes (colitis) Disorders: No HTN: Yes Hypercholesterolemia: Yes Kidney Stones: Yes Liver Disease: No Psychiatric Problems: Yes (bipolar) Seizures: No Thyroid Disease: No - Surgical History Abdominal Surgery: No Appendectomy: No Cardiac Surgery: No Cholecystectomy: No Lung Surgery: No Neurologic Surgery: No Orthopedic Surgery: No - Reproductive History Is Patient Now?: No Therapeutic (s) & number: No - Immunization History Immunization Up to Date: Yes - Psycho-Social/Smoking History Smoking History: Current every day smoker Have you smoked in the past 12 months: Yes Number of Cigarettes Smoked Daily: 10 Information on smoking cessation initiated: Yes 'Breaking Loose' booklet given: 04/22/17 - Substance Abuse Hx (Audit-C & DAST Scrn) How often the patient has a drink containing alcohol: Never Score: In Men: 4 or > Positive; In Women: 3 or > Positive: 0 Screen Result (Pos requires Nsg. Audit-10AR): Negative *Physical Exam - Vital Signs Last Vital Signs Temp Pulse Resp BP Pulse Ox 98.7 F 83 20 137/64 98 06/26/20 22:05 06/26/20 22:05 06/26/20 22:05 06/26/20 22:05 06/26/20 22:05 Discharge - Discharge Information Problems reviewed: Yes Clinical Impression/Diagnosis: Colitis, Cholelithiasis - Follow up/Referral Referrals: Keith Paredes MD [Primary Care Provider] - - Patient Discharge Instructions - Post Discharge Activity
[2020-06-27] MEDS ORDERED: ACETAMINOPHEN INJECTION 100 ML IVPB ONE (00:11)
[2020-06-27 00:25] LABS: BASO % 1.3 % (0-2.0); HEMATOCRIT 32.3 % (32.4-45.2); HEMOGLOBIN 10.3 GM/dL (10.7-15.3); LYMPH % 53.5 % (8-40); MCH 28.7 pg (25.7-33.7); MEAN CELL VOLUME 89.7 fl (80-96); MEAN PLT VOLUME 7.9 fl (7.5-11.1); MONO % 6.4 % (3.8-10.2); NEUT % 33.8 % (42.8-82.8); PLATELET COUNT 392 K/MM3 (134-434); RDW 17.8 % (11.6-15.6); WHITE BLOOD COUNT 7.4 K/mm3 (4.0-10.0)
--- NOTE | 2020-06-27 00:36 | PDOC ---
Documentation entered by Erendira Bloom SCRIBE, acting as scribe for Edie Barrios MD. Edie Barrios MD: This documentation has been prepared by the scribe, Erendira Bloom SCRIBE, under my direction and personally reviewed by me in its entirety. I confirm that the documentation accurately reflects all work, treatment, procedures, and medical decision making performed by me. Attending Attestation - Resident Resident Name: Deanna Campbell - ED Attending Attestation I have performed the following: I have examined & evaluated the patient, The case was reviewed & discussed with the resident, I agree w/resident's findings & plan, Exceptions are as noted - HPI HPI: 06/26/20 22:58 Patient is a 49 year old female with a significant past medical history of obesity, abdominal surgeries (gastric sleeve and tunny tuck), tummy tuck, HTN, asthma, kidney stones, and renal colic, who presents to the ED with right upper quadrant and left diffused abdominal pain x1 month. Patient was recently discharged from this hospital 3 days ago, said she was feeling fine then but has worse symptoms now. Patient reports that her pain level is 10/10 with associated nbnb vomiting (6 episodes) and diarrhea (11 episodes today). Patient denies: any other related symptoms. Allergies: NKDA - Physicial Exam PE: 06/26/20 22:59 GENERAL: Well-appearing, well-nourished. No apparent distress. HEENT: Normocephalic, atraumatic. PERRL, EOM intact. CARDIOVASCULAR: Normal S1, S2. Regular rate and rhythm. PULMONARY: Clear to auscultation bilaterally. ABDOMEN: Soft, no rebound but she was complaining of pain in her LLQ and RLQ EXTREMITIES: Normal ROM in all four extremities. No gross deformities. SKIN: Warm, dry. No rash NEUROLOGICAL: No focal neurological deficits. 06/27/20 00:31 06/27/20 00:56 - Medical Decision Making 06/27/20 00:57 this 49 yo female is being treated for colitis and was d/c from the hospital several days ago on Bentyl,vancomycin and returns requesting morphine for pain she is afebrile and has had no vomiting during her ER visit stable VS labs reviewed her pain resolved 06/27/20 01:25 she is taking vancomycin for her collitis and plans to follow up with her locks tender 06/27/20 01:40 Discharge - Discharge Information Problems reviewed: Yes Clinical Impression/Diagnosis: Colitis, Cholelithiasis Condition: Stable Disposition: HOME - Follow up/Referral Referrals: Keith Paredes MD [Primary Care Provider] - - Patient Discharge Instructions Patient Printed Discharge Instructions: DI for Colitis Additional Instructions: You were seen in the ER for abdominal pain, your symptoms improved with medication and fluids. Continue to take your vancomycin and medications as prescribed, and be sure to follow up with your locks tender (intestine doctor) as soon as possible, in the next 2-3 days. Return to the ER if you develop high fevers, weakness, confusion, intractable nausea and vomiting, or intractable abdominal pain. - Post Discharge Activity
[2020-06-27 00:46] LABS: CALCIUM 9.4 mg/dL (8.5-10.1); POTASSIUM 4.4 mmol/L (3.5-5.1)
[2020-06-27 00:47] LABS: ALBUMIN 3.9 g/dl (3.4-5.0); BLOOD UREA NITROGEN 9.2 mg/dL (7-18)
[2020-06-27 00:49] LABS: CREATININE 0.6 mg/dL (0.55-1.3)
[2020-06-27 00:51] LABS: BILIRUBIN,TOTAL 0.3 mg/dL (0.2-1); TOT PROT 7.5 g/dl (6.4-8.2)
--- NOTE | 2020-06-27 01:23 | PDOC ---
*Physical Exam - Vital Signs Last Vital Signs Temp Pulse Resp BP Pulse Ox 98.7 F 83 20 137/64 98 06/26/20 22:05 06/26/20 22:05 06/26/20 22:05 06/26/20 22:05 06/26/20 22:05 ED Treatment Course - LABORATORY CBC & Chemistry Diagram: 06/27/20 00:15 06/27/20 00:15 - ADDITIONAL ORDERS Additional order review: Laboratory Results 06/27/20 00:15 Sodium 138 Potassium 4.4 Chloride 105 Carbon Dioxide 28 Anion Gap 6 L BUN 9.2 Creatinine 0.6 Est GFR (CKD-EPI)AfAm 125.80 Est GFR (CKD-EPI)NonAf 108.54 Random Glucose 84 Calcium 9.4 Total Bilirubin 0.3 AST 30 ALT 26 Alkaline Phosphatase 127 H Total Protein 7.5 Albumin 3.9 Lipase 106 06/27/20 00:15 RBC 3.60 MCV 89.7 MCHC 32.0 RDW 17.8 H MPV 7.9 Neutrophils % 33.8 L D Lymphocytes % 53.5 H D Monocytes % 6.4 Eosinophils % 5.0 H Basophils % 1.3 - Medications Given in the ED: ED Medications Discontinued Medications Generic Name Dose Route Start Last Admin Trade Name Freq PRN Reason Stop Dose Admin Acetaminophen 1,000 mg 06/26/20 23:47 06/27/20 00:20 Ofirmev Injection - IVPB 06/26/20 23:48 1,000 mg ONCE ONE Administration Ondansetron HCl 4 mg 06/26/20 23:30 06/27/20 00:03 Zofran Injection IVPUSH 06/26/20 23:31 4 mg ONCE ONE Administration Sodium Chloride 1,000 ml 06/26/20 23:30 06/27/20 00:02 Normal Saline - IV 06/26/20 23:31 1,000 ml ONCE ONE Administration Medical Decision Making - Medical Decision Making Sign out received from Dr. Campbell. 49F w/hx HTN, cholelithiasis, recent admission from 06/07-06/15 and 06/17-06/22 for colitis p/w ongoing abdominal pain. Currently mid course of vancomycin. Pending: Labs Pain control Dispo: Likely discharge --- CBC, CMP - wnl On reassessment, patient reports significant improvement of symptoms s/p fluids, ofirmev. Plan for discharge with close GI follow up. Discharge - Discharge Information Problems reviewed: Yes Clinical Impression/Diagnosis: Colitis, Cholelithiasis Condition: Stable Disposition: HOME - Admission No - Follow up/Referral Referrals: Keith Paredes MD [Primary Care Provider] - - Patient Discharge Instructions Patient Printed Discharge Instructions: DI for Colitis Additional Instructions: You were seen in the ER for abdominal pain, your symptoms improved with medication and fluids. Continue to take your vancomycin and medications as prescribed, and be sure to follow up with your procedural nurse (intestine doctor) as soon as possible, in the next 2-3 days. Return to the ER if you develop high fevers, weakness, confusion, intractable nausea and vomiting, or intractable abdominal pain. - Post Discharge Activity
[2020-06-27 01:50] VITALS: BP 129/67; PULSE 67; TEMP 97.9
[2020-06-27 01:53] LABS: EPI CELLS >36 /uL (0-25.1); HYALINE CASTS 3 /uL (0-3.1); PH,URINE 5.5 (5.0-8.0); URINE APPEARANCE CLEAR; URINE BILIRUBIN 2+ (NEGATIVE); URINE COLOR ORANGE; URINE GLUCOSE (UA) NEGATIVE (NEGATIVE); URINE KETONE NEGATIVE (NEGATIVE); URINE LEUK ESTERASE 2+ (NEGATIVE); URINE NITRITE POSITIVE (NEGATIVE); URINE PROTEIN 1+ (NEGATIVE); URINE RBC 9 /uL (0-23.9); URINE WBC 67 /uL (0-25.8); YEAST REVIEW (NEGATIVE)
[2020-06-27 04:49] LABS: URINE BACTERIA MODERATE /uL (0-1359); URINE CRYSTALS MODERATE /hpf
== END 2020-06-27 01:38 | disposition home or self-care (01) ==
LOC: JER 21:54
PROC: 3E0333Z Introduction of Anti-inflammatory into Peripheral Vein, Percutaneous Approach (ICD-10-PCS; principal; 2020-06-26)
PROC: 3E033GC Introduction of Other Therapeutic Substance into Peripheral Vein, Percutaneous Approach (ICD-10-PCS; 2020-06-26)
DX: K52.9 Noninfective gastroenteritis and colitis, unspecified (principal); K80.80 Other cholelithiasis without obstruction
CPT/HCPCS: 36415; 80053; 81003; 83690; 85025; 87077; 87086; 99284-25; J0131

== ENCOUNTER 2020-08-20 02:50 | Inpatient (IN) | payer OTHER ==
[2020-08-20] MEDS ORDERED: morphine CARPU-JECT 2 MG/1 ML DISP.SYRIN IVPUSH ONE ×2 (03:32→06:11)
[2020-08-20] MEDS ORDERED: ONDANSETRON 4 MG/2 ML VIAL IVPUSH ONE (03:32)
[2020-08-20] MEDS ORDERED: MORPHINE SULFATE 2 MG/ML VIAL ONE ×3 (04:16→14:22)
[2020-08-20] MEDS ORDERED: ONDANSETRON 4 MG/2 ML VIAL ONE (04:16)
[2020-08-20 05:17] LABS: BASO % 0.4 % (0-2.0); EOS % 14.2 % (0-4.5); HEMATOCRIT 36.8 % (32.4-45.2); HEMOGLOBIN 12.5 GM/dL (10.7-15.3); LYMPH % 33.7 % (8-40); MCHC 33.9 g/dl (32.0-36.0); MEAN CELL VOLUME 91.3 fl (80-96); MEAN PLT VOLUME 7.9 fl (7.5-11.1); MONO % 6.9 % (3.8-10.2); NEUT % 44.8 % (42.8-82.8); PLATELET COUNT 387 K/MM3 (134-434); RBC 4.03 M/mm3 (3.60-5.2); RDW 17.9 % (11.6-15.6)
[2020-08-20 05:23] LABS: CHLORIDE 116 mmol/L (98-107); SODIUM 144 mmol/L (136-145)
[2020-08-20 05:25] LABS: CALCIUM 7.3 mg/dL (8.5-10.1)
[2020-08-20 05:26] LABS: BLOOD UREA NITROGEN 6.3 mg/dL (7-18); CO2 22 mmol/L (21-32); GLUCOSE,RANDOM 80 mg/dL (74-106); LIPASE 71 U/L (73-393); MAGNESIUM 1.8 mg/dL (1.8-2.4)
[2020-08-20 05:27] LABS: CREATININE 0.4 mg/dL (0.55-1.3)
[2020-08-20 05:28] LABS: PHOSPHOROUS 2.9 mg/dL (2.5-4.9); SGOT/AST 11 U/L (15-37); SGPT/ALT 11 U/L (13-61)
[2020-08-20 05:29] LABS: BILIRUBIN,TOTAL < 0.1 mg/dL (0.2-1); TOT PROT 5.8 g/dl (6.4-8.2)
[2020-08-20 05:31] LABS: ALK PHOS 117 U/L (45-117)
[2020-08-20 05:34] LABS: ANION GAP 6 MMOL/L (8-16)
[2020-08-20 05:36] LABS: POTASSIUM 2.8 mmol/L (3.5-5.1)
[2020-08-20] MEDS ORDERED: POTASSIUM CHLORIDE TABS 20 MEQ TABLET.ER (FP) PO ONE ×4 (05:36→21:57)
[2020-08-20 06:06] LABS: EPI CELLS 27 /uL (0-25.1); HYALINE CASTS 2 /uL (0-3.1); URINE APPEARANCE CLEAR; URINE BACTERIA 336 /uL (0-1359); URINE BILIRUBIN NEGATIVE (NEGATIVE); URINE COLOR YELLOW; URINE GLUCOSE (UA) NEGATIVE (NEGATIVE); URINE KETONE NEGATIVE (NEGATIVE); URINE LEUK ESTERASE NEGATIVE (NEGATIVE); URINE NITRITE NEGATIVE (NEGATIVE); URINE PROTEIN NEGATIVE (NEGATIVE); URINE RBC 47 /uL (0-23.9); URINE UROBILINOGEN 0.2 mg/dL (0.2-1.0); URINE WBC 11 /uL (0-25.8)
[2020-08-20] MEDS ORDERED: KETOROLAC TROMETHAMINE 30 MG/1 ML VIAL IVPUSH ONE (06:12)
[2020-08-20] MEDS ORDERED: MAGNESIUM SULF 50% (8.12 MEQ/2 ML-1 GM VIAL) IVPB ONE (06:12)
[2020-08-20] MEDS ORDERED: KETOROLAC TROMETHAMINE 30 MG/1 ML VIAL ONE (06:51)
[2020-08-20] MEDS ORDERED: MAGNESIUM SULFATE IN WATER 2 GM/50 ML IVPB IVPB ONE (06:52)
[2020-08-20] MEDS ORDERED: morphine CARPU-JECT 4 MG/1 ML DISP.SYRIN IVPUSH ONE (08:04)
[2020-08-20] MEDS ORDERED: KCL 10 MEQ IVPB 10 MEQ/100 ML INFUS.BAG IVPB SCH (09:00)
[2020-08-20] MEDS ORDERED: cloNIDine HCL 0.1 MG TABLET PO ONE (09:14)
[2020-08-20] MEDS ORDERED: ACETAMINOPHEN 1000 MG/100 ML VIAL (NON FORMULARY) IVPB PRN (09:15)
[2020-08-20] MEDS ORDERED: D5-NS + 40 MEQ KCL - 40 MEQ/1,000 ML INFUS.BAG IV SCH (09:15)
[2020-08-20] MEDS ORDERED: KCL 10 MEQ IVPB 10 MEQ/100 ML INFUS.BAG IVPB ONE (09:23)
[2020-08-20] MEDS ORDERED: clonazePAM 0.5 MG TABLET ONE ×3 (09:23→22:13)
[2020-08-20] MEDS ORDERED: morphine SULFATE 4 MG/ML VIAL ONE ×2 (09:23→16:31)
[2020-08-20] MEDS ORDERED: cloNIDine HCL 0.1 MG TABLET ONE (09:23)
[2020-08-20] MEDS ORDERED: QUEtiapine FUMARATE 200 MG TABLET PO SCH (10:00)
[2020-08-20] MEDS ORDERED: clonazePAM 0.5 MG TABLET PO SCH (10:00)
[2020-08-20] MEDS ORDERED: MIRTAZAPINE 15 MG TABLET (FP) PO SCH (10:00)
[2020-08-20] MEDS ORDERED: PANTOPRAZOLE SODIUM 40 MG VIAL IVPUSH SCH (10:00)
[2020-08-20] MEDS: MORPHINE SULFATE 2 MG/ML VIAL IVPUSH PRN (14:25)
[2020-08-20] MEDS ORDERED: ONDANSETRON 4 MG/2 ML VIAL IVPUSH PRN (15:17)
[2020-08-20] MEDS: clonazePAM 0.5 MG TABLET PO SCH ×2 (16:42→22:14)
[2020-08-20] MEDS: VANCOMYCIN 250 MG/5 ML ORAL SOLUTION PO SCH (17:55)
[2020-08-20] MEDS: D5-NS + 40 MEQ KCL - 40 MEQ/1,000 ML INFUS.BAG IV SCH (17:56)
[2020-08-20] MEDS ORDERED: ZINC SULFATE 220 MG CAPSULE (FP) ONE (19:45)
[2020-08-20] MEDS: ZINC SULFATE 220 MG CAPSULE (FP) PO SCH (19:45)
[2020-08-20] MEDS ORDERED: ACETAMINOPHEN INJECTION 100 ML IVPB ONE (21:57)
[2020-08-20] MEDS ORDERED: MIRTAZAPINE 15 MG TABLET (FP) ONE (22:13)
[2020-08-20] MEDS ORDERED: FAMOTIDINE 20 MG/50 ML IVPB 20 MG/50 ML MG IVPB ONE (22:13)
[2020-08-20] MEDS ORDERED: ASCORBIC ACID 500 MG TABLET (FP) ONE (22:13)
[2020-08-20] MEDS: ASCORBIC ACID 500 MG TABLET (FP) PO SCH (22:14)
[2020-08-20] MEDS: QUEtiapine FUMARATE 200 MG TABLET PO SCH (22:14)
[2020-08-20] MEDS: FAMOTIDINE 20 MG/50 ML IVPB 20 MG/50 ML MG IVPB SCH (22:14)
[2020-08-20] MEDS: MIRTAZAPINE 15 MG TABLET (FP) PO SCH (22:14)
[2020-08-21] MEDS: VANCOMYCIN 250 MG/5 ML ORAL SOLUTION PO SCH ×4 (02:07→18:03)
[2020-08-21] MEDS: MORPHINE SULFATE 2 MG/ML VIAL IVPUSH PRN ×5 (02:08→23:15)
[2020-08-21] MEDS: D5-NS + 40 MEQ KCL - 40 MEQ/1,000 ML INFUS.BAG IV SCH ×2 (02:43→15:28)
[2020-08-21 03:00] VITALS: BMI 31.4
[2020-08-21] MEDS: clonazePAM 0.5 MG TABLET PO SCH ×3 (05:02→21:51)
[2020-08-21 07:45] LABS: BASO % 0.4 % (0-2.0); EOS % 14.6 % (0-4.5); HEMATOCRIT 35.5 % (32.4-45.2); HEMOGLOBIN 11.9 GM/dL (10.7-15.3); LYMPH % 30.4 % (8-40); MCH 31.5 pg (25.7-33.7); MCHC 33.7 g/dl (32.0-36.0); MEAN CELL VOLUME 93.5 fl (80-96); MEAN PLT VOLUME 7.9 fl (7.5-11.1); MONO % 12.1 % (3.8-10.2); NEUT % 42.5 % (42.8-82.8); PLATELET COUNT 312 K/MM3 (134-434); RBC 3.79 M/mm3 (3.60-5.2); RDW 17.9 % (11.6-15.6); WHITE BLOOD COUNT 6.2 K/mm3 (4.0-10.0)
[2020-08-21 07:54] LABS: POTASSIUM 4.6 mmol/L (3.5-5.1)
[2020-08-21 08:01] LABS: CALCIUM 8.6 mg/dL (8.5-10.1)
[2020-08-21 08:02] LABS: ALBUMIN 3.3 g/dl (3.4-5.0); BLOOD UREA NITROGEN 8.2 mg/dL (7-18)
[2020-08-21 08:05] LABS: CREATININE 0.6 mg/dL (0.55-1.3)
[2020-08-21 08:07] LABS: TOT PROT 6.4 g/dl (6.4-8.2)
[2020-08-21 08:09] LABS: BILIRUBIN,TOTAL 0.2 mg/dL (0.2-1)
[2020-08-21] MEDS: FAMOTIDINE 20 MG/50 ML IVPB 20 MG/50 ML MG IVPB SCH ×2 (09:15→21:47)
[2020-08-21] MEDS: ZINC SULFATE 220 MG CAPSULE (FP) PO SCH (09:38)
[2020-08-21] MEDS: ASCORBIC ACID 500 MG TABLET (FP) PO SCH ×2 (09:38→21:46)
[2020-08-21] MEDS ORDERED: ACETAMINOPHEN 325 MG TABLET (FP) PO PRN (10:27)
[2020-08-21] MEDS ORDERED: clonazePAM 0.5 MG TABLET PO SCH (13:15)
[2020-08-21] MEDS ORDERED: oxyCODONE HCL 5 MG TABLET PO PRN (13:26)
[2020-08-21] MEDS: ENOXAPARIN NA (PORCINE) 40 MG/0.4 ML DISP.SYRIN SQ SCH (13:28)
[2020-08-21] MEDS: CHOLECALCIFEROL (VIT D3) 1,000 UNIT (25 MCG) TABLET PO SCH (13:30)
[2020-08-21] MEDS: ACETAMINOPHEN 325 MG TABLET (FP) PO PRN (18:00)
[2020-08-21] MEDS ORDERED: PT OWN MED DRAWER 7, Y5N ONE (20:49)
[2020-08-21] MEDS: QUEtiapine FUMARATE 200 MG TABLET PO SCH (21:46)
[2020-08-21] MEDS: ZOLPIDEM TARTRATE 5 MG TABLET PO PRN (21:46)
[2020-08-21] MEDS: MIRTAZAPINE 15 MG TABLET (FP) PO SCH (21:47)
[2020-08-21] MEDS ORDERED: clonazePAM 2 MG TABLET PO SCH (22:00)
[2020-08-22] MEDS: VANCOMYCIN 250 MG/5 ML ORAL SOLUTION PO SCH ×4 (00:35→17:41)
[2020-08-22] MEDS: ACETAMINOPHEN 325 MG TABLET (FP) PO PRN ×2 (02:25→20:07)
[2020-08-22] MEDS: MORPHINE SULFATE 2 MG/ML VIAL IVPUSH PRN ×5 (03:54→21:50)
[2020-08-22] MEDS: clonazePAM 2 MG TABLET PO SCH (06:00)
[2020-08-22 08:37] LABS: HEMATOCRIT 35.4 % (32.4-45.2); HEMOGLOBIN 11.9 GM/dL (10.7-15.3); MCH 31.3 pg (25.7-33.7); MCHC 33.7 g/dl (32.0-36.0); MEAN CELL VOLUME 92.8 fl (80-96); MEAN PLT VOLUME 7.8 fl (7.5-11.1); PLATELET COUNT 306 K/MM3 (134-434); RBC 3.81 M/mm3 (3.60-5.2); RDW 18.5 % (11.6-15.6); WHITE BLOOD COUNT 7.7 K/mm3 (4.0-10.0)
[2020-08-22 09:01] LABS: POTASSIUM 4.3 mmol/L (3.5-5.1)
[2020-08-22 09:21] LABS: CALCIUM 8.7 mg/dL (8.5-10.1); MAGNESIUM 2.1 mg/dL (1.8-2.4)
[2020-08-22 09:24] LABS: CREATININE 0.7 mg/dL (0.55-1.3)
[2020-08-22 09:26] LABS: PHOSPHOROUS 3.3 mg/dL (2.5-4.9)
[2020-08-22] MEDS: CHOLECALCIFEROL (VIT D3) 1,000 UNIT (25 MCG) TABLET PO SCH (10:06)
[2020-08-22] MEDS: ASCORBIC ACID 500 MG TABLET (FP) PO SCH ×2 (10:06→21:03)
[2020-08-22] MEDS: ENOXAPARIN NA (PORCINE) 40 MG/0.4 ML DISP.SYRIN SQ SCH (10:07)
[2020-08-22] MEDS: ZINC SULFATE 220 MG CAPSULE (FP) PO SCH (10:07)
[2020-08-22] MEDS: FAMOTIDINE 20 MG/50 ML IVPB 20 MG/50 ML MG IVPB SCH ×2 (10:07→21:04)
[2020-08-22 11:42] LABS: EPI CELLS 15 /uL (0-25.1); HYALINE CASTS 1 /uL (0-3.1); PH,URINE 5.5 (5.0-8.0); URINE APPEARANCE CLEAR; URINE BACTERIA 620 /uL (0-1359); URINE BILIRUBIN NEGATIVE (NEGATIVE); URINE COLOR YELLOW; URINE GLUCOSE (UA) NEGATIVE (NEGATIVE); URINE KETONE NEGATIVE (NEGATIVE); URINE LEUK ESTERASE NEGATIVE (NEGATIVE); URINE NITRITE NEGATIVE (NEGATIVE); URINE PROTEIN NEGATIVE (NEGATIVE); URINE RBC 23 /uL (0-23.9); URINE UROBILINOGEN 0.2 mg/dL (0.2-1.0); URINE WBC 5 /uL (0-25.8)
[2020-08-22] MEDS: clonazePAM 0.5 MG TABLET PO SCH ×2 (13:53→21:04)
[2020-08-22] MEDS: QUEtiapine FUMARATE 200 MG TABLET PO SCH (21:03)
[2020-08-22] MEDS: MIRTAZAPINE 15 MG TABLET (FP) PO SCH (21:04)
[2020-08-22] MEDS: ZOLPIDEM TARTRATE 5 MG TABLET PO PRN (21:50)
[2020-08-23] MEDS: VANCOMYCIN 250 MG/5 ML ORAL SOLUTION PO SCH ×4 (00:11→18:11)
[2020-08-23] MEDS ORDERED: PT OWN MED DRAWER 7, Y5N ONE ×2 (01:15→09:15)
[2020-08-23] MEDS: MORPHINE SULFATE 2 MG/ML VIAL IVPUSH PRN ×6 (02:19→22:12)
[2020-08-23] MEDS: ACETAMINOPHEN 325 MG TABLET (FP) PO PRN (02:27)
[2020-08-23] MEDS: clonazePAM 2 MG TABLET PO SCH (06:10)
[2020-08-23 08:00] LABS: BASO % 0.4 % (0-2.0); EOS % 12.8 % (0-4.5); HEMATOCRIT 34.8 % (32.4-45.2); HEMOGLOBIN 11.6 GM/dL (10.7-15.3); MCH 31.1 pg (25.7-33.7); MCHC 33.3 g/dl (32.0-36.0); MEAN CELL VOLUME 93.7 fl (80-96); MEAN PLT VOLUME 7.9 fl (7.5-11.1); MONO % 10.1 % (3.8-10.2); NEUT % 30.7 % (42.8-82.8); PLATELET COUNT 258 K/MM3 (134-434); RBC 3.72 M/mm3 (3.60-5.2); RDW 18.6 % (11.6-15.6); WHITE BLOOD COUNT 5.6 K/mm3 (4.0-10.0)
[2020-08-23 08:23] LABS: CALCIUM 8.4 mg/dL (8.5-10.1)
[2020-08-23 08:24] LABS: MAGNESIUM 2.1 mg/dL (1.8-2.4)
[2020-08-23 08:25] LABS: CREATININE 0.7 mg/dL (0.55-1.3)
[2020-08-23 08:26] LABS: PHOSPHOROUS 4.9 mg/dL (2.5-4.9)
[2020-08-23] MEDS: ASCORBIC ACID 500 MG TABLET (FP) PO SCH ×2 (10:07→21:13)
[2020-08-23] MEDS: CHOLECALCIFEROL (VIT D3) 1,000 UNIT (25 MCG) TABLET PO SCH (10:07)
[2020-08-23] MEDS: ENOXAPARIN NA (PORCINE) 40 MG/0.4 ML DISP.SYRIN SQ SCH (10:07)
[2020-08-23] MEDS: ZINC SULFATE 220 MG CAPSULE (FP) PO SCH (10:07)
[2020-08-23] MEDS: FAMOTIDINE 20 MG/50 ML IVPB 20 MG/50 ML MG IVPB SCH ×2 (10:07→21:26)
[2020-08-23] MEDS ORDERED: ACETAMINOPHEN WITH CODEINE 300MG/30MG TABLET PO ONE (12:54)
[2020-08-23] MEDS ORDERED: DEXTROSE 5%-WATER - 50 ML IVPB ONE (12:56)
[2020-08-23] MEDS ORDERED: cefTRIAXone SODIUM 1 GM VIAL ONE (12:56)
[2020-08-23] MEDS: CEFTRIAXONE 1 GM in DEXTROSE 5%-WATER - 50 ML IVPB SCH (13:02)
[2020-08-23] MEDS: clonazePAM 0.5 MG TABLET PO SCH ×2 (13:48→21:13)
[2020-08-23] MEDS: PHENAZOPYRIDINE HCL 100 MG TABLET (FP) PO SCH ×2 (15:14→21:13)
[2020-08-23] MEDS: QUEtiapine FUMARATE 200 MG TABLET PO SCH (21:13)
[2020-08-23] MEDS: MIRTAZAPINE 15 MG TABLET (FP) PO SCH (21:13)
[2020-08-23] MEDS: NICOTINE 21 MG/24 HOURS TOPICAL PATCH TD SCH (21:26)
[2020-08-23] MEDS: ZOLPIDEM TARTRATE 5 MG TABLET PO PRN (22:12)
[2020-08-24] MEDS: VANCOMYCIN 250 MG/5 ML ORAL SOLUTION PO SCH ×3 (01:20→12:00)
[2020-08-24] MEDS: MORPHINE SULFATE 2 MG/ML VIAL IVPUSH PRN ×2 (04:20→09:43)
[2020-08-24] MEDS ORDERED: SODIUM CHLORIDE NASAL SPRAY 44 ML BOTTLE NS PRN (04:47)
[2020-08-24] MEDS: ACETAMINOPHEN 325 MG TABLET (FP) PO PRN (06:29)
[2020-08-24] MEDS: PHENAZOPYRIDINE HCL 100 MG TABLET (FP) PO SCH ×2 (06:29→13:03)
[2020-08-24] MEDS: clonazePAM 2 MG TABLET PO SCH (06:29)
[2020-08-24 06:31] VITALS: BP 135/60; PULSE 89; TEMP 98.8
[2020-08-24 08:59] LABS: BASO % 0.4 % (0-2.0); EOS % 11.6 % (0-4.5); HEMATOCRIT 33.2 % (32.4-45.2); HEMOGLOBIN 11.4 GM/dL (10.7-15.3); LYMPH % 36.6 % (8-40); MCH 31.4 pg (25.7-33.7); MCHC 34.2 g/dl (32.0-36.0); MEAN CELL VOLUME 91.8 fl (80-96); MEAN PLT VOLUME 7.6 fl (7.5-11.1); MONO % 6.8 % (3.8-10.2); NEUT % 44.6 % (42.8-82.8); PLATELET COUNT 257 K/MM3 (134-434); RBC 3.62 M/mm3 (3.60-5.2); RDW 18.3 % (11.6-15.6); WHITE BLOOD COUNT 6.5 K/mm3 (4.0-10.0)
[2020-08-24 09:12] LABS: POTASSIUM 3.9 mmol/L (3.5-5.1)
[2020-08-24 09:14] LABS: BLOOD UREA NITROGEN 4.2 mg/dL (7-18); CALCIUM 8.6 mg/dL (8.5-10.1); MAGNESIUM 2.2 mg/dL (1.8-2.4)
[2020-08-24 09:18] LABS: CREATININE 0.6 mg/dL (0.55-1.3); PHOSPHOROUS 3.1 mg/dL (2.5-4.9)
[2020-08-24] MEDS ORDERED: cefTRIAXone SODIUM 1 GM VIAL ONE (09:26)
[2020-08-24] MEDS ORDERED: DEXTROSE 5%-WATER - 50 ML IVPB ONE (09:26)
[2020-08-24] MEDS: FAMOTIDINE 20 MG/50 ML IVPB 20 MG/50 ML MG IVPB SCH (09:41)
[2020-08-24] MEDS: ZINC SULFATE 220 MG CAPSULE (FP) PO SCH (09:43)
[2020-08-24] MEDS: CHOLECALCIFEROL (VIT D3) 1,000 UNIT (25 MCG) TABLET PO SCH (09:43)
[2020-08-24] MEDS: ASCORBIC ACID 500 MG TABLET (FP) PO SCH (09:43)
[2020-08-24] MEDS: CEFTRIAXONE 1 GM in DEXTROSE 5%-WATER - 50 ML IVPB SCH (09:43)
[2020-08-24] MEDS: NICOTINE 21 MG/24 HOURS TOPICAL PATCH TD SCH (11:53)
[2020-08-24] MEDS: ENOXAPARIN NA (PORCINE) 40 MG/0.4 ML DISP.SYRIN SQ SCH (11:53)
[2020-08-24] MEDS ORDERED: ACETAMINOPHEN WITH CODEINE 300MG/30MG TABLET PO PRN (12:28)
[2020-08-24] MEDS: clonazePAM 0.5 MG TABLET PO SCH (13:03)
[2020-08-24] MEDS ORDERED: BENZOCAINE/MENTH/CETYLPYRD CL 1 EACH LOZENGE MM PRN (13:35)
[2020-08-28 17:50] LABS: HIV INTERPRETATION NEGATIVE (NEGATIVE)
== END 2020-08-24 17:34 | disposition left against medical advice (07) | DRG 137 ==
LOC: JER 02:50 → JERBED 08:10 → J8W 08-21 00:48 → OBSVTOIN 08-22 11:05
PROVIDERS: ADMIT Family Medicine; ATTEND Internal Medicine
DX: U07.1 COVID-19 (principal); A08.39 Other viral enteritis; I10 Essential (primary) hypertension; E78.5 Hyperlipidemia, unspecified; Z98.84 Bariatric surgery status; D72.10 Eosinophilia, unspecified; R91.8 Other nonspecific abnormal finding of lung field; K76.0 Fatty (change of) liver, not elsewhere classified; B78.9 Strongyloidiasis, unspecified; R10.31 Right lower quadrant pain; R11.2 Nausea with vomiting, unspecified; D64.9 Anemia, unspecified; F31.9 Bipolar disorder, unspecified; F41.9 Anxiety disorder, unspecified; E87.6 Hypokalemia; F41.0 Panic disorder [episodic paroxysmal anxiety]; N39.0 Urinary tract infection, site not specified; Z76.5 Malingerer [conscious simulation]; Z83.1 Family history of other infectious and parasitic diseases
CPT/HCPCS: 36415; 71045-TC-FY; 71260-TC; 74176-TC; 80048; 80053; 81003; 82728; 83615; 83690; 83735; 83993; 84100; 85025; 85027; 85379; 85651; 86140; 86682; 87040; 87086; 87177; 87205; 87209; 87324; 87389; 87449; 93005; 93010; 99285-25; C9803; G0378; J0131; Q9967; U0003

== ENCOUNTER 2020-09-01 11:15 | Inpatient (IN) | payer OTHER ==
[2020-09-01] MEDS ORDERED: SODIUM CHLORIDE 0.9% 500 ML INFUS.BAG IV ONE (11:46)
[2020-09-01] MEDS ORDERED: ACETAMINOPHEN 500 MG TABLET (FP) PO ONE (11:46)
[2020-09-01] MEDS ORDERED: FAMOTIDINE 20 MG/50 ML IVPB 20 MG/50 ML MG IVPB ONE ×2 (11:46→11:58)
[2020-09-01] MEDS ORDERED: ONDANSETRON *ODT* 4 MG TABLET SL ONE (11:47)
[2020-09-01] MEDS ORDERED: KETOROLAC TROMETHAMINE 30 MG/1 ML VIAL IVPUSH ONE (11:47)
[2020-09-01] MEDS ORDERED: ACETAMINOPHEN 325 MG TABLET (FP) ONE (11:57)
[2020-09-01] MEDS ORDERED: ONDANSETRON *ODT* 4 MG TABLET ONE (11:58)
[2020-09-01] MEDS ORDERED: KETOROLAC TROMETHAMINE 30 MG/1 ML VIAL ONE (11:58)
[2020-09-01 12:22] LABS: BASO % 0.7 % (0-2.0); EOS % 14.9 % (0-4.5); HEMATOCRIT 36.4 % (32.4-45.2); LYMPH % 45.2 % (8-40); MCH 30.7 pg (25.7-33.7); MCHC 32.9 g/dl (32.0-36.0); MEAN CELL VOLUME 93.3 fl (80-96); MEAN PLT VOLUME 8.3 fl (7.5-11.1); NEUT % 32.2 % (42.8-82.8); PLATELET COUNT 354 K/MM3 (134-434); RDW 18.5 % (11.6-15.6); WHITE BLOOD COUNT 6.4 K/mm3 (4.0-10.0)
[2020-09-01 12:32] LABS: INR 1.01 (0.83-1.09); PROTHROMBIN TIME (PATIENT) 12.4 SEC (9.7-13.0)
[2020-09-01] MEDS ORDERED: morphine CARPU-JECT 4 MG/1 ML DISP.SYRIN IVPUSH ONE ×3 (12:41→17:58)
[2020-09-01 12:53] LABS: POTASSIUM 3.6 mmol/L (3.5-5.1)
[2020-09-01 12:55] LABS: ALBUMIN 3.9 g/dl (3.4-5.0); BLOOD UREA NITROGEN 6.5 mg/dL (7-18); CALCIUM 8.9 mg/dL (8.5-10.1)
[2020-09-01 12:59] LABS: CREATININE 0.7 mg/dL (0.55-1.3)
[2020-09-01 13:00] LABS: BILIRUBIN,TOTAL 0.3 mg/dL (0.2-1); TOT PROT 7.1 g/dl (6.4-8.2)
[2020-09-01] MEDS ORDERED: morphine SULFATE 4 MG/ML VIAL ONE ×3 (13:15→18:15)
[2020-09-01] MEDS ORDERED: DEXTROSE 5%-WATER - 1,000 ML IV SCH (17:45)
[2020-09-01] MEDS ORDERED: MORPHINE SULFATE 2 MG/ML VIAL ONE (20:34)
[2020-09-01] MEDS: MORPHINE SULFATE 2 MG/ML VIAL IM PRN (20:46)
[2020-09-02] MEDS: HEPARIN NA (PORCINE) 5,000 UNITS/ML 1ML VIAL SQ SCH ×3 (07:00→15:33)
[2020-09-02 07:06] LABS: BASO % 0.7 % (0-2.0); EOS % 16.7 % (0-4.5); HEMATOCRIT 32.6 % (32.4-45.2); HEMOGLOBIN 11.1 GM/dL (10.7-15.3); LYMPH % 44.2 % (8-40); MCH 31.4 pg (25.7-33.7); MCHC 33.9 g/dl (32.0-36.0); MEAN CELL VOLUME 92.5 fl (80-96); MONO % 8.6 % (3.8-10.2); NEUT % 29.8 % (42.8-82.8); PLATELET COUNT 327 K/MM3 (134-434); RBC 3.53 M/mm3 (3.60-5.2); RDW 18.7 % (11.6-15.6); WHITE BLOOD COUNT 6.4 K/mm3 (4.0-10.0)
[2020-09-02 07:18] LABS: POTASSIUM 4.1 mmol/L (3.5-5.1)
[2020-09-02 07:20] LABS: ACTIVATED PTT 31.2 SECONDS (25.2-36.5); INR 0.99 (0.83-1.09); PROTHROMBIN TIME (PATIENT) 12.2 SEC (9.7-13.0)
[2020-09-02 07:27] LABS: ALBUMIN 3.4 g/dl (3.4-5.0); BLOOD UREA NITROGEN 13.8 mg/dL (7-18); CALCIUM 7.9 mg/dL (8.5-10.1)
[2020-09-02 07:30] LABS: CREATININE 0.5 mg/dL (0.55-1.3); PHOSPHOROUS 3.6 mg/dL (2.5-4.9)
[2020-09-02 07:31] LABS: BILIRUBIN,TOTAL 0.6 mg/dL (0.2-1)
[2020-09-02 07:32] LABS: TOT PROT 6.2 g/dl (6.4-8.2)
[2020-09-02] MEDS ORDERED: MORPHINE SULFATE 2 MG/ML VIAL ONE (08:39)
[2020-09-02] MEDS: MORPHINE SULFATE 2 MG/ML VIAL IM PRN (08:47)
[2020-09-02] MEDS ORDERED: ACETAMINOPHEN 1000 MG/100 ML VIAL (NON FORMULARY) IVPB PRN (09:53)
[2020-09-02] MEDS ORDERED: clonazePAM 2 MG TABLET PO SCH (09:54)
[2020-09-02] MEDS ORDERED: MORPHINE SULFATE 2 MG/ML VIAL IVPUSH PRN (10:15)
[2020-09-02] MEDS ORDERED: clonazePAM 0.5 MG TABLET ONE (10:22)
[2020-09-02 11:49] VITALS: BP 148/92; PULSE 90; TEMP 98.1; BMI 37.7
[2020-09-02] MEDS ORDERED: ACETAMINOPHEN 325 MG TABLET (FP) PO PRN ×2 (14:47→16:08)
[2020-09-02] MEDS ORDERED: SODIUM CHLORIDE NASAL SPRAY 44 ML BOTTLE NS PRN (14:52)
[2020-09-02] MEDS ORDERED: MIRTAZAPINE 15 MG TABLET (FP) PO SCH (22:00)
[2020-09-02] MEDS ORDERED: QUEtiapine FUMARATE 200 MG TABLET PO SCH (22:00)
== END 2020-09-02 19:27 | disposition left against medical advice (07) | DRG 249 ==
LOC: JER 11:15 → JERBED 18:21 → J6S 09-02 10:53
PROVIDERS: ADMIT Internal Medicine; ATTEND Internal Medicine
DX: K52.9 Noninfective gastroenteritis and colitis, unspecified (principal); Z72.0 Tobacco use; R10.9 Unspecified abdominal pain; F31.9 Bipolar disorder, unspecified; R91.8 Other nonspecific abnormal finding of lung field; I10 Essential (primary) hypertension; E78.5 Hyperlipidemia, unspecified; F41.8 Other specified anxiety disorders; F41.0 Panic disorder [episodic paroxysmal anxiety]
CPT/HCPCS: 36415; 71046-TC-FY; 74177-TC; 80053; 82728; 83615; 83735; 84100; 85025; 85610; 85730; 86140; 93005; 93010; 99285-25; C9803; J1644; Q0162; Q9967; U0003

== ENCOUNTER 2020-11-30 21:51 | Emergency (ER) | payer OTHER ==
[2020-11-30 22:31] VITALS: BP 151/92; PULSE 73; TEMP 98.4; BMI 29.5
[2020-11-30] MEDS ORDERED: ACETAMINOPHEN 1000 MG/100 ML VIAL (NON FORMULARY) IVPB ONE (23:51)
== END 2020-12-01 01:00 | disposition left against medical advice (07) ==
LOC: JER 21:51
DX: R10.32 Left lower quadrant pain (principal)
CPT/HCPCS: 93005; 93010; 99282-25

== ENCOUNTER 2020-12-05 14:17 | Emergency (ER) | payer OTHER ==
[2020-12-05 14:48] VITALS: BMI 29.5
[2020-12-05] MEDS ORDERED: ONDANSETRON 4 MG/2 ML VIAL IVPUSH ONE (15:28)
[2020-12-05] MEDS ORDERED: ACETAMINOPHEN 1000 MG/100 ML VIAL (NON FORMULARY) IVPB ONE (15:28)
[2020-12-05] MEDS ORDERED: LACTATED RINGERS SOLUTION 1000 ML INFUS.BAG IV ONE (15:29)
[2020-12-05] MEDS ORDERED: ACETAMINOPHEN INJECTION 100 ML IVPB ONE (15:56)
[2020-12-05] MEDS ORDERED: ONDANSETRON 4 MG/2 ML VIAL ONE (15:56)
[2020-12-05 16:23] LABS: BASO % 0.6 % (0-2.0); EOS % 4.9 % (0-4.5); HEMATOCRIT 36.4 % (32.4-45.2); HEMOGLOBIN 12.4 GM/dL (10.7-15.3); LYMPH % 46.7 % (8-40); MCH 33.3 pg (25.7-33.7); MCHC 34.1 g/dl (32.0-36.0); MEAN CELL VOLUME 97.7 fl (80-96); MEAN PLT VOLUME 7.6 fl (7.5-11.1); MONO % 8.2 % (3.8-10.2); NEUT % 39.6 % (42.8-82.8); PLATELET COUNT 334 K/MM3 (134-434); RBC 3.73 M/mm3 (3.60-5.2); RDW 15.3 % (11.6-15.6); WHITE BLOOD COUNT 7.3 K/mm3 (4.0-10.0)
[2020-12-05 16:43] LABS: CALCIUM 9.6 mg/dL (8.5-10.1)
[2020-12-05 16:44] LABS: ALBUMIN 3.7 g/dl (3.4-5.0)
[2020-12-05 16:46] LABS: CREATININE 0.6 mg/dL (0.55-1.3)
[2020-12-05 16:48] LABS: BILIRUBIN,TOTAL 0.2 mg/dL (0.2-1); TOT PROT 7.3 g/dl (6.4-8.2)
[2020-12-05] MEDS ORDERED: morphine SULFATE 4 MG/ML VIAL IVPUSH ONE (17:48)
[2020-12-05] MEDS ORDERED: morphine SULFATE 4 MG/ML VIAL ONE (18:00)
[2020-12-05 18:57] VITALS: BP 134/89; PULSE 86; TEMP 98.7
== END 2020-12-05 18:57 | disposition home or self-care (01) ==
LOC: JER 14:17
PROC: 3E033NZ Introduction of Analgesics, Hypnotics, Sedatives into Peripheral Vein, Percutaneous Approach (ICD-10-PCS; principal; 2020-12-05)
PROC: 3E033GC Introduction of Other Therapeutic Substance into Peripheral Vein, Percutaneous Approach (ICD-10-PCS; 2020-12-05)
DX: R10.84 Generalized abdominal pain (principal)
CPT/HCPCS: 36415; 71045-TC-FY; 74177-TC; 80053; 83690; 84703; 85025; 93005; 93010; 99285-25; Q9967

== ENCOUNTER 2021-03-12 15:15 | Inpatient (IN) | payer OTHER ==
[2021-03-12 16:21] VITALS: BMI 28.9
[2021-03-12] MEDS ORDERED: MENTHOL/PHENOL 1 EACH UD MM PRN (17:19)
[2021-03-12] MEDS ORDERED: NICOTINE POLACRILEX 4 MG GUM BUC PRN (17:19)
[2021-03-12] MEDS ORDERED: BISMUTH SUBSALICYLATE 524 MG/30 ML PO PRN (17:19)
[2021-03-12] MEDS ORDERED: MAGNESIUM CITRATE 300 ML BOTTLE PO PRN (17:19)
[2021-03-12] MEDS ORDERED: ACETAMINOPHEN 325 MG TABLET (FP) PO PRN ×2 (17:19)
[2021-03-12] MEDS ORDERED: methaDONE HCL 10 MG TABLET (FOR DETOX USE ONLY) PO ONE (17:45)
[2021-03-12] MEDS ORDERED: methaDONE HCL 10 MG TABLET (FOR DETOX USE ONLY) ONE (17:50)
[2021-03-12] MEDS ORDERED: ONDANSETRON *ODT* 4 MG TABLET ONE (17:50)
[2021-03-12] MEDS: ONDANSETRON *ODT* 4 MG TABLET SL PRN ×2 (17:51→22:14)
[2021-03-12] MEDS: NICOTINE 21 MG/24 HOURS TOPICAL PATCH TD SCH (18:35)
[2021-03-12] MEDS: hydrOXYzine PAMOATE 25 MG CAPSULE (FP) PO SCH ×2 (18:37→23:02)
[2021-03-12] MEDS: IBUPROFEN 400 MG TABLET (FP) PO PRN (18:39)
[2021-03-12] MEDS: cloNIDine HCL 0.1 MG TABLET PO PRN (23:02)
[2021-03-12] MEDS: MONTELUKAST NA 10 MG TABLET PO SCH (23:02)
[2021-03-12] MEDS: THIAMINE HCL 100 MG TABLET (FP) PO SCH (23:02)
[2021-03-12] MEDS: METHOCARBAMOL 500 MG TABLET PO PRN (23:02)
[2021-03-12] MEDS: MAG HYDROX/AL HYDROX/SIMETH 30 ML UNIT-DOSE CUP PO PRN (23:03)
[2021-03-12] MEDS: MELATONIN 5 MG TABLETS PO SCH (23:05)
[2021-03-12] MEDS: IBUPROFEN 400 MG TABLET (FP) PO SCH (23:05)
[2021-03-13] MEDS: hydrOXYzine PAMOATE 25 MG CAPSULE (FP) PO SCH (06:18)
[2021-03-13] MEDS: METHOCARBAMOL 500 MG TABLET PO PRN (06:43)
[2021-03-13] MEDS: IBUPROFEN 400 MG TABLET (FP) PO PRN ×2 (06:43→23:31)
[2021-03-13] MEDS ORDERED: ALBUTEROL SO4 HFA INHALER IH PRN (06:48)
[2021-03-13] MEDS: ONDANSETRON *ODT* 4 MG TABLET SL PRN ×2 (08:12→14:15)
[2021-03-13] MEDS ORDERED: methaDONE HCL 10 MG TABLET (FOR DETOX USE ONLY) ONE (09:27)
[2021-03-13] MEDS: PANTOPRAZOLE 40 MG TABLET PO SCH (09:30)
[2021-03-13] MEDS: IBUPROFEN 400 MG TABLET (FP) PO SCH ×2 (09:31→22:40)
[2021-03-13] MEDS: NICOTINE 21 MG/24 HOURS TOPICAL PATCH TD SCH (09:31)
[2021-03-13] MEDS: PRENATAL VITAMINS W/ FOLIC ACID TABLET (FP) PO SCH (09:31)
[2021-03-13] MEDS: diazePAM 5 MG TABLET PO PRN ×3 (09:35→20:12)
[2021-03-13] MEDS ORDERED: PATIENT'S OWN MEDICATION (NON-FORMULARY) (Losartan/Hydrochlorothiazide [Hyzaar 100-12.5 Ta PO SCH (10:00)
[2021-03-13 10:05] LABS: HEMATOCRIT 35.9 % (32.4-45.2); HEMOGLOBIN 11.9 GM/dL (10.7-15.3); MCH 33.1 pg (25.7-33.7); MEAN CELL VOLUME 100.2 fl (80-96); MEAN PLT VOLUME 8.1 fl (7.5-11.1); PLATELET COUNT 320 10^3/uL (134-434); RBC 3.58 M/mm3 (3.60-5.2); RDW 15.7 % (11.6-15.6); WHITE BLOOD COUNT 7.5 K/mm3 (4.0-10.0)
[2021-03-13 10:11] LABS: CALCIUM 8.9 mg/dL (8.5-10.1)
[2021-03-13 10:12] LABS: ALBUMIN 3.5 g/dl (3.4-5.0)
[2021-03-13 10:13] LABS: BLOOD UREA NITROGEN 10.2 mg/dL (7-18)
[2021-03-13 10:17] LABS: BILIRUBIN,TOTAL 0.4 mg/dL (0.2-1); CREATININE 0.6 mg/dL (0.55-1.3)
[2021-03-13 10:19] LABS: TOT PROT 6.5 g/dl (6.4-8.2)
[2021-03-13] MEDS: SENNOSIDES 8.6MG TABLET (FP) PO SCH (13:43)
[2021-03-13] MEDS: MAGNESIUM HYDROX 2400MG/30ML ORAL SUSPENSION 30 ML CUP PO PRN (13:43)
[2021-03-13] MEDS: LOSARTAN POTASSIUM 50 MG TABLET PO SCH (13:47)
[2021-03-13] MEDS: HYDROCHLOROTHIAZIDE 12.5 MG CAPSULE (FP) PO SCH (13:47)
[2021-03-13 18:48] LABS: HIV INTERPRETATION NEGATIVE (NEGATIVE)
[2021-03-13] MEDS: THIAMINE HCL 100 MG TABLET (FP) PO SCH (22:31)
[2021-03-13] MEDS: MELATONIN 5 MG TABLETS PO SCH (22:31)
[2021-03-13] MEDS: MONTELUKAST NA 10 MG TABLET PO SCH ×2 (22:31→23:27)
[2021-03-14] MEDS: diazePAM 5 MG TABLET PO PRN ×4 (06:40→22:05)
[2021-03-14] MEDS: SENNOSIDES 8.6MG TABLET (FP) PO SCH (09:44)
[2021-03-14] MEDS: LOSARTAN POTASSIUM 50 MG TABLET PO SCH (09:44)
[2021-03-14] MEDS: ONDANSETRON *ODT* 4 MG TABLET SL PRN (09:44)
[2021-03-14] MEDS: PANTOPRAZOLE 40 MG TABLET PO SCH (09:44)
[2021-03-14] MEDS: METHOCARBAMOL 500 MG TABLET PO PRN (09:44)
[2021-03-14] MEDS: PRENATAL VITAMINS W/ FOLIC ACID TABLET (FP) PO SCH (09:46)
[2021-03-14] MEDS: NICOTINE 21 MG/24 HOURS TOPICAL PATCH TD SCH (09:49)
[2021-03-14] MEDS: HYDROCHLOROTHIAZIDE 12.5 MG CAPSULE (FP) PO SCH (09:50)
[2021-03-14] MEDS: IBUPROFEN 400 MG TABLET (FP) PO SCH (09:57)
[2021-03-14] MEDS ORDERED: methaDONE HCL 10 MG TABLET (FOR DETOX USE ONLY) PO ONE (10:00)
[2021-03-14] MEDS ORDERED: IBUPROFEN 400 MG TABLET (FP) PO PRN (13:03)
[2021-03-14] MEDS: cloNIDine HCL 0.1 MG TABLET PO PRN (13:23)
[2021-03-14] MEDS: MAG HYDROX/AL HYDROX/SIMETH 30 ML UNIT-DOSE CUP PO PRN (13:24)
[2021-03-14] MEDS ORDERED: ACETAMINOPHEN 325 MG TABLET (FP) PO PRN (13:54)
[2021-03-14] MEDS ORDERED: MIRTAZAPINE 15 MG TABLET (FP) PO SCH (22:00)
[2021-03-14] MEDS ORDERED: QUEtiapine FUMARATE 200 MG TABLET PO SCH (22:00)
[2021-03-14] MEDS: MELATONIN 5 MG TABLETS PO SCH (22:03)
[2021-03-14] MEDS: THIAMINE HCL 100 MG TABLET (FP) PO SCH (22:04)
[2021-03-14] MEDS: MONTELUKAST NA 10 MG TABLET PO SCH (22:06)
[2021-03-15] MEDS: diazePAM 5 MG TABLET PO PRN ×4 (09:08→22:06)
[2021-03-15] MEDS: METHOCARBAMOL 500 MG TABLET PO PRN ×2 (09:08→15:06)
[2021-03-15] MEDS ORDERED: methaDONE HCL 10 MG TABLET (FOR DETOX USE ONLY) ONE (09:53)
[2021-03-15] MEDS: PANTOPRAZOLE 40 MG TABLET PO SCH (10:04)
[2021-03-15] MEDS: LOSARTAN POTASSIUM 50 MG TABLET PO SCH (10:05)
[2021-03-15] MEDS: SENNOSIDES 8.6MG TABLET (FP) PO SCH (10:05)
[2021-03-15] MEDS: NICOTINE 21 MG/24 HOURS TOPICAL PATCH TD SCH (10:06)
[2021-03-15] MEDS: HYDROCHLOROTHIAZIDE 12.5 MG CAPSULE (FP) PO SCH (10:06)
[2021-03-15] MEDS: ONDANSETRON *ODT* 4 MG TABLET SL PRN ×2 (10:08→18:33)
[2021-03-15] MEDS: PRENATAL VITAMINS W/ FOLIC ACID TABLET (FP) PO SCH (10:37)
[2021-03-15] MEDS: IBUPROFEN 600 MG TABLET (FP) PO PRN (13:13)
[2021-03-15] MEDS: MAG HYDROX/AL HYDROX/SIMETH 30 ML UNIT-DOSE CUP PO PRN (13:14)
[2021-03-15] MEDS: hydrOXYzine PAMOATE 25 MG CAPSULE (FP) PO PRN ×2 (15:06→22:06)
[2021-03-15] MEDS ORDERED: MIRTAZAPINE 15 MG TABLET (FP) PO SCH (20:00)
[2021-03-15] MEDS: MIRTAZAPINE 15 MG TABLET (FP) PO SCH (20:31)
[2021-03-15] MEDS: QUEtiapine FUMARATE 200 MG TABLET PO SCH (20:31)
[2021-03-15] MEDS: THIAMINE HCL 100 MG TABLET (FP) PO SCH (22:03)
[2021-03-15] MEDS: MELATONIN 5 MG TABLETS PO SCH (22:03)
[2021-03-15] MEDS: MONTELUKAST NA 10 MG TABLET PO SCH (22:04)
[2021-03-16] MEDS: HYDROCHLOROTHIAZIDE 12.5 MG CAPSULE (FP) PO SCH (09:21)
[2021-03-16] MEDS: SENNOSIDES 8.6MG TABLET (FP) PO SCH (09:22)
[2021-03-16] MEDS: METHOCARBAMOL 500 MG TABLET PO PRN ×2 (09:22→15:26)
[2021-03-16] MEDS: PANTOPRAZOLE 40 MG TABLET PO SCH (09:22)
[2021-03-16] MEDS: LOSARTAN POTASSIUM 50 MG TABLET PO SCH (09:22)
[2021-03-16] MEDS: IBUPROFEN 600 MG TABLET (FP) PO PRN (09:23)
[2021-03-16] MEDS: PRENATAL VITAMINS W/ FOLIC ACID TABLET (FP) PO SCH (09:26)
[2021-03-16] MEDS: NICOTINE 21 MG/24 HOURS TOPICAL PATCH TD SCH (09:30)
[2021-03-16] MEDS: ONDANSETRON *ODT* 4 MG TABLET SL PRN ×2 (09:30→15:26)
[2021-03-16] MEDS ORDERED: methaDONE HCL 10 MG TABLET (FOR DETOX USE ONLY) PO ONE (10:00)
[2021-03-16] MEDS: diazePAM 5 MG TABLET PO PRN ×3 (13:08→22:31)
[2021-03-16] MEDS: MAG HYDROX/AL HYDROX/SIMETH 30 ML UNIT-DOSE CUP PO PRN (13:08)
[2021-03-16] MEDS: hydrOXYzine PAMOATE 25 MG CAPSULE (FP) PO PRN (15:26)
[2021-03-16] MEDS: QUEtiapine FUMARATE 200 MG TABLET PO SCH (20:27)
[2021-03-16] MEDS: MIRTAZAPINE 15 MG TABLET (FP) PO SCH (20:27)
[2021-03-16] MEDS: THIAMINE HCL 100 MG TABLET (FP) PO SCH (22:29)
[2021-03-16] MEDS: MELATONIN 5 MG TABLETS PO SCH (22:29)
[2021-03-16] MEDS: MONTELUKAST NA 10 MG TABLET PO SCH (22:52)
[2021-03-17] MEDS: ONDANSETRON *ODT* 4 MG TABLET SL PRN (10:10)
[2021-03-17] MEDS: diazePAM 5 MG TABLET PO PRN ×3 (10:10→22:41)
[2021-03-17] MEDS: LOSARTAN POTASSIUM 50 MG TABLET PO SCH (10:11)
[2021-03-17] MEDS: SENNOSIDES 8.6MG TABLET (FP) PO SCH (10:11)
[2021-03-17] MEDS: PANTOPRAZOLE 40 MG TABLET PO SCH (10:11)
[2021-03-17] MEDS: HYDROCHLOROTHIAZIDE 12.5 MG CAPSULE (FP) PO SCH (10:12)
[2021-03-17] MEDS: PRENATAL VITAMINS W/ FOLIC ACID TABLET (FP) PO SCH (10:12)
[2021-03-17] MEDS: NICOTINE 21 MG/24 HOURS TOPICAL PATCH TD SCH (10:14)
[2021-03-17] MEDS: MAGNESIUM HYDROX 2400MG/30ML ORAL SUSPENSION 30 ML CUP PO PRN (10:53)
[2021-03-17] MEDS: MELATONIN 5 MG TABLETS PO SCH (22:36)
[2021-03-17] MEDS: THIAMINE HCL 100 MG TABLET (FP) PO SCH (22:36)
[2021-03-17] MEDS: MIRTAZAPINE 15 MG TABLET (FP) PO SCH (22:37)
[2021-03-17] MEDS: MONTELUKAST NA 10 MG TABLET PO SCH (22:37)
[2021-03-17] MEDS: METHOCARBAMOL 500 MG TABLET PO PRN (22:37)
[2021-03-17] MEDS: QUEtiapine FUMARATE 200 MG TABLET PO SCH (22:40)
[2021-03-18] MEDS: ONDANSETRON *ODT* 4 MG TABLET SL PRN ×2 (10:07→20:47)
[2021-03-18] MEDS: diazePAM 5 MG TABLET PO PRN ×2 (10:07→14:55)
[2021-03-18] MEDS: PRENATAL VITAMINS W/ FOLIC ACID TABLET (FP) PO SCH (10:08)
[2021-03-18] MEDS: PANTOPRAZOLE 40 MG TABLET PO SCH (10:08)
[2021-03-18] MEDS: SENNOSIDES 8.6MG TABLET (FP) PO SCH (10:08)
[2021-03-18] MEDS: NICOTINE 21 MG/24 HOURS TOPICAL PATCH TD SCH (10:08)
[2021-03-18] MEDS: LOSARTAN POTASSIUM 50 MG TABLET PO SCH (10:08)
[2021-03-18] MEDS: HYDROCHLOROTHIAZIDE 12.5 MG CAPSULE (FP) PO SCH (10:09)
[2021-03-18] MEDS: MAGNESIUM HYDROX 2400MG/30ML ORAL SUSPENSION 30 ML CUP PO PRN (14:55)
[2021-03-18] MEDS: METHOCARBAMOL 500 MG TABLET PO PRN (14:55)
[2021-03-18] MEDS ORDERED: POLYETHYLENE GLYCOL (HEALTHYLAX) 3350 17 GM PACKET PO SCH (18:45)
[2021-03-18] MEDS ORDERED: IBUPROFEN 400 MG TABLET (FP) PO PRN (18:46)
[2021-03-18] MEDS: QUEtiapine FUMARATE 200 MG TABLET PO SCH (20:43)
[2021-03-18] MEDS: MIRTAZAPINE 15 MG TABLET (FP) PO SCH (20:43)
[2021-03-18] MEDS: MAG HYDROX/AL HYDROX/SIMETH 30 ML UNIT-DOSE CUP PO PRN (20:47)
[2021-03-18] MEDS: THIAMINE HCL 100 MG TABLET (FP) PO SCH (23:05)
[2021-03-18] MEDS: MELATONIN 5 MG TABLETS PO SCH (23:05)
[2021-03-18] MEDS: MONTELUKAST NA 10 MG TABLET PO SCH (23:05)
[2021-03-19 06:38] VITALS: BP 127/76; PULSE 69; TEMP 97.1
== END 2021-03-19 08:44 | disposition home or self-care (01) | DRG 773 ==
LOC: YASAS 15:15 → Y3N 17:50
PROVIDERS: ADMIT Allergy & Immunology; ATTEND Allergy & Immunology
PROC: HZ2ZZZZ Detoxification Services for Substance Abuse Treatment (ICD-10-PCS; principal; 2021-03-12)
DX: F11.23 Opioid dependence with withdrawal (principal); F13.20 Sedative, hypnotic or anxiolytic dependence, uncomplicated; F17.210 Nicotine dependence, cigarettes, uncomplicated; F19.280 Other psychoactive substance dependence with psychoactive substance-induced anxiety disorder; F19.282 Other psychoactive substance dependence with psychoactive substance-induced sleep disorder; F19.24 Other psychoactive substance dependence with psychoactive substance-induced mood disorder; F31.9 Bipolar disorder, unspecified; F41.9 Anxiety disorder, unspecified; I10 Essential (primary) hypertension; J45.909 Unspecified asthma, uncomplicated; E78.5 Hyperlipidemia, unspecified; R10.32 Left lower quadrant pain; Z86.59 Personal history of other mental and behavioral disorders; Z87.19 Personal history of other diseases of the digestive system; Z90.49 Acquired absence of other specified parts of digestive tract; Z98.84 Bariatric surgery status; Z87.442 Personal history of urinary calculi
CPT/HCPCS: 36415; 80053; 81025; 85027; 86780; 87389; C9803; J0735; Q0162; U0003; U0005

== ENCOUNTER 2021-04-24 17:42 | Emergency (ER) | payer OTHER ==
[2021-04-24 18:13] VITALS: BP 144/78; PULSE 57; TEMP 98.5; BMI 23.1
[2021-04-24] MEDS ORDERED: ASPIRIN 325 MG TABLET PO ONE (19:47)
[2021-04-24 19:50] LABS: BASO % 0.4 % (0-2.0); HEMATOCRIT 34.9 % (32.4-45.2); LYMPH % 42.4 % (8-40); MCH 33.7 pg (25.7-33.7); MCHC 34.3 g/dl (32.0-36.0); MEAN CELL VOLUME 98.5 fl (80-96); MONO % 5.6 % (3.8-10.2); NEUT % 35.6 % (42.8-82.8); PLATELET COUNT 244 10^3/uL (134-434); RBC 3.54 M/mm3 (3.60-5.2); RDW 14.7 % (11.6-15.6); WHITE BLOOD COUNT 8.6 K/mm3 (4.0-10.0)
[2021-04-24 20:09] LABS: CHLORIDE 109 mmol/L (98-107); SODIUM 142 mmol/L (136-145)
[2021-04-24 20:11] LABS: CALCIUM 8.8 mg/dL (8.5-10.1)
[2021-04-24 20:12] LABS: ALBUMIN 3.4 g/dl (3.4-5.0); ANION GAP 6 MMOL/L (8-16); BLOOD UREA NITROGEN 6.4 mg/dL (7-18); CO2 27 mmol/L (21-32); GLUCOSE,RANDOM 71 mg/dL (74-106)
[2021-04-24 20:15] LABS: CREATININE 0.6 mg/dL (0.55-1.3); SGOT/AST 16 U/L (15-37); SGPT/ALT 19 U/L (13-61)
[2021-04-24 20:17] LABS: BILIRUBIN,TOTAL 0.3 mg/dL (0.2-1); TOT PROT 6.2 g/dl (6.4-8.2)
[2021-04-24 20:18] LABS: ALK PHOS 95 U/L (45-117)
== END 2021-04-24 20:45 | disposition left against medical advice (07) ==
LOC: JER 17:42
DX: R07.9 Chest pain, unspecified (principal)
CPT/HCPCS: 36415; 71046-TC-FY; 80053; 82550; 84484; 85025; 93005; 93010; 99285-25

== ENCOUNTER → 2021-07-12 | Emergency (ER) | payer OTHER ==
[2021-07-12 18:46] VITALS: BP 168/89; PULSE 91; TEMP 97.5; BMI 20.9
== END ==
LOC: JER 18:41
DX: R07.9 Chest pain, unspecified (principal)
CPT/HCPCS: 93005; 93010; 99281-25

== ENCOUNTER 2022-01-13 16:38 | Emergency (ER) | payer OTHER ==
[2022-01-13 17:01] VITALS: BP 148/79; PULSE 68; TEMP 98.8; BMI 29.2
[2022-01-13] MEDS ORDERED: ONDANSETRON 4 MG/2 ML VIAL IVPUSH ONE (17:30)
[2022-01-13] MEDS ORDERED: SODIUM CHLORIDE 0.9% 500 ML INFUS.BAG IV ONE (17:30)
[2022-01-13] MEDS ORDERED: MAG HYDROX/AL HYDROX/SIMETH -MYLANTA- ORAL SUSPENSION PO ONE (17:30)
[2022-01-13] MEDS ORDERED: morphine CARPU-JECT 2 MG/1 ML DISP.SYRIN IVPUSH ONE (17:38)
[2022-01-13] MEDS ORDERED: ACETAMINOPHEN 1000 MG/100 ML BAG IVPB ONE (17:42)
[2022-01-13 18:15] LABS: BASO % 0.7 % (0-2.0); EOS % 7.7 % (0-4.5); HEMATOCRIT 32.8 % (32.4-45.2); HEMOGLOBIN 10.9 GM/dL (10.7-15.3); LYMPH % 37.3 % (8-40); MCH 31.1 pg (25.7-33.7); MCHC 33.2 g/dl (32.0-36.0); MEAN CELL VOLUME 93.5 fl (80-96); MEAN PLT VOLUME 7.9 fl (7.5-11.1); MONO % 6.7 % (3.8-10.2); NEUT % 47.6 % (42.8-82.8); PLATELET COUNT 288 10^3/uL (134-434); RBC 3.51 M/mm3 (3.60-5.2); RDW 13.9 % (11.6-15.6); WHITE BLOOD COUNT 8.6 K/mm3 (4.0-10.0)
[2022-01-13 18:53] LABS: ALBUMIN 3.7 g/dl (3.4-5.0); BLOOD UREA NITROGEN 7.8 mg/dL (7-18); CALCIUM 8.9 mg/dL (8.5-10.1)
[2022-01-13 18:56] LABS: CREATININE 0.6 mg/dL (0.55-1.3)
[2022-01-13 18:57] LABS: BILIRUBIN,TOTAL 0.3 mg/dL (0.2-1)
== END 2022-01-13 21:49 | disposition home or self-care (01) ==
LOC: JER 16:38
PROC: 3E033GC Introduction of Other Therapeutic Substance into Peripheral Vein, Percutaneous Approach (ICD-10-PCS; principal; 2022-01-13)
DX: R10.32 Left lower quadrant pain (principal); R11.2 Nausea with vomiting, unspecified
CPT/HCPCS: 36415; 74176-TC; 80053; 82272; 83690; 84703; 85025; 87045; 87046; 87205; 99285-25

== ENCOUNTER 2024-11-08 19:00 | Observation (INO) | payer OTHER ==
[2024-11-08] MEDS ORDERED: morphine SULFATE 4 MG/ML VIAL ONE ×2 (21:29→23:46)
[2024-11-08] MEDS ORDERED: ONDANSETRON *ODT* 4 MG TABLET ONE (21:29)
[2024-11-08] MEDS: morphine CARPU-JECT 2 MG/1 ML DISP.SYRIN SQ ONE ×3 (21:40→21:41)
[2024-11-08] MEDS: ONDANSETRON *ODT* 4 MG TABLET SL ONE (21:41)
[2024-11-08 21:44] LABS: BASO % 0.5 % (0-2.0); EOS % 13.9 % (0-4.5); HEMATOCRIT 37.6 % (32.4-45.2); HEMOGLOBIN 12.5 GM/dL (10.7-15.3); LYMPH % 34.2 % (8-40); MCHC 33.3 g/dl (32.0-36.0); MEAN PLT VOLUME 7.7 fl (7.5-11.1); MONO % 4.8 % (3.8-10.2); NEUT % 46.6 % (42.8-82.8); PLATELET COUNT 340 10^3/uL (134-434); RBC 4.04 M/mm3 (3.60-5.2); RDW 15.3 % (11.6-15.6); WHITE BLOOD COUNT 10.7 K/mm3 (4.0-10.0)
[2024-11-08 22:12] LABS: POTASSIUM 3.3 mmol/L (3.5-5.1)
[2024-11-08 22:14] LABS: ALBUMIN 3.8 g/dl (3.4-5.0); BLOOD UREA NITROGEN 15.4 mg/dL (7-18)
[2024-11-08 22:17] LABS: CREATININE 0.7 mg/dL (0.55-1.3)
[2024-11-08 22:19] LABS: BILIRUBIN,TOTAL 0.2 mg/dL (0.2-1); TOT PROT 6.6 g/dl (6.4-8.2)
[2024-11-08 22:28] LABS: MAGNESIUM 2.2 mg/dL (1.8-2.4)
[2024-11-08 22:32] LABS: PHOSPHOROUS 3.6 mg/dL (2.5-4.9)
[2024-11-08 22:59] LABS: EPI CELLS 19 /uL (0-25.1); HYALINE CASTS 0 /uL (0-3.1); PH,URINE 6.5 (5.0-8.0); URINE APPEARANCE CLEAR; URINE BACTERIA 645 /uL (0-1359); URINE BILIRUBIN NEGATIVE (NEGATIVE); URINE COLOR YELLOW; URINE GLUCOSE (UA) NEGATIVE (NEGATIVE); URINE KETONE NEGATIVE (NEGATIVE); URINE LEUK ESTERASE TRACE (NEGATIVE); URINE NITRITE NEGATIVE (NEGATIVE); URINE PROTEIN NEGATIVE (NEGATIVE); URINE RBC 23 /uL (0-23.9); URINE UROBILINOGEN 0.2 mg/dL (0.2-1.0); URINE WBC 70 /uL (0-25.8)
[2024-11-08] MEDS ORDERED: POTASSIUM CHLORIDE ORAL LIQUID 20 MEQ/15 ML ONE (23:46)
[2024-11-08] MEDS: morphine CARPU-JECT 4 MG/1 ML DISP.SYRIN SQ ONE (23:52)
[2024-11-08] MEDS: POTASSIUM CHLORIDE ORAL LIQUID 20 MEQ/15 ML PO ONE (23:54)
[2024-11-09] MEDS ORDERED: FAMOTIDINE 20 MG TABLET ONE (00:27)
[2024-11-09] MEDS ORDERED: MAG HYDROX/AL HYDROX/SIMETH 30 ML UNIT-DOSE CUP ONE (00:28)
[2024-11-09] MEDS: MAG HYDROX/AL HYDROX/SIMETH 30 ML UNIT-DOSE CUP PO ONE (00:31)
[2024-11-09] MEDS: FAMOTIDINE 20 MG TABLET PO ONE (00:41)
[2024-11-09] MEDS: FAMOTIDINE 20 MG/50 ML IVPB 20 MG/50 ML MG IVPB ONE (00:41)
[2024-11-09] MEDS ORDERED: DOCUSATE SODIUM 100 MG CAPSULE (FP) PO PRN (01:37)
[2024-11-09] MEDS: ACETAMINOPHEN 1000 MG/100 ML BAG IVPB ONE (03:17)
[2024-11-09] MEDS ORDERED: FLU VACCINE (FLULAVAL) PF 45 MCG/0.5 ML SYRINGE 2024-2025 IM ONE (04:05)
[2024-11-09 04:43] VITALS: BMI 36.9
[2024-11-09] MEDS: morphine SULFATE 4 MG/ML VIAL IVPUSH PRN (04:49)
[2024-11-09] MEDS: GABAPENTIN 300 MG CAPSULE PO ONE (07:32)
[2024-11-09] MEDS: KETOROLAC TROMETHAMINE 30 MG/1 ML VIAL IVPUSH ONE (07:32)
[2024-11-09 08:42] LABS: BASO % 0.5 % (0-2.0); HEMATOCRIT 35.8 % (32.4-45.2); HEMOGLOBIN 11.9 GM/dL (10.7-15.3); LYMPH % 33.2 % (8-40); MCH 30.8 pg (25.7-33.7); MCHC 33.2 g/dl (32.0-36.0); MEAN CELL VOLUME 92.7 fl (80-96); MEAN PLT VOLUME 8.3 fl (7.5-11.1); MONO % 4.9 % (3.8-10.2); NEUT % 47.4 % (42.8-82.8); PLATELET COUNT 306 10^3/uL (134-434); RBC 3.87 M/mm3 (3.60-5.2); RDW 15.2 % (11.6-15.6); WHITE BLOOD COUNT 9.8 K/mm3 (4.0-10.0)
[2024-11-09] MEDS: ACETAMINOPHEN 1000 MG/100 ML BAG IVPB SCH (09:12)
[2024-11-09] MEDS: morphine SULFATE 4 MG/ML VIAL IVPB PRN (09:13)
[2024-11-09] MEDS: FLU VACCINE (FLUARIX) PF 45 MCG/0.5 ML SYRINGE 2024-2025 IM ONE (10:57)
[2024-11-09] MEDS: KETOROLAC TROMETHAMINE 15 MG/ML VIAL IVPUSH PRN (14:07)
[2024-11-09] MEDS ORDERED: ALPRAZolam 0.25 MG TABLET PO ONE (15:37)
[2024-11-09] MEDS: ALPRAZolam 0.25 MG TABLET PO ONE (18:05)
[2024-11-09] MEDS ORDERED: GABAPENTIN 300 MG CAPSULE PO SCH (22:00)
[2024-11-09] MEDS ORDERED: QUEtiapine FUMARATE 400 MG TABLET PO SCH (22:00)
[2024-11-09] MEDS: GABAPENTIN 300 MG CAPSULE PO SCH (22:01)
[2024-11-09] MEDS: MIRTAZAPINE 15 MG TABLET (FP) PO SCH (22:02)
[2024-11-09] MEDS: QUEtiapine FUMARATE 200 MG TABLET PO SCH (22:02)
[2024-11-09] MEDS: clonazePAM 0.5 MG TABLET PO SCH (22:02)
[2024-11-09] MEDS: MONTELUKAST NA 10 MG TABLET PO SCH (22:03)
[2024-11-09] MEDS: IBUPROFEN 400 MG TABLET (FP) PO SCH (22:03)
[2024-11-10 09:28] VITALS: BP 144/80; PULSE 88; RESP 18; TEMP 97.9
[2024-11-10] MEDS: NICOTINE 21 MG/24 HOURS TOPICAL PATCH TD SCH (09:44)
[2024-11-10] MEDS: LOSARTAN POTASSIUM 50 MG TABLET PO SCH (09:44)
[2024-11-10] MEDS: traZODone HCL 50 MG TABLET (FP) PO SCH (09:44)
[2024-11-10] MEDS: HYDROCHLOROTHIAZIDE 12.5 MG CAPSULE (FP) PO SCH (09:44)
[2024-11-10] MEDS: PANTOPRAZOLE 40 MG TABLET PO SCH (09:44)
[2024-11-10] MEDS: amLODIPine BESYLATE 5 MG TABLET (FP) PO SCH (09:45)
[2024-11-10] MEDS ORDERED: QUEtiapine FUMARATE 100 MG TABLET (FP) PO SCH ×2 (10:00)
[2024-11-10] MEDS ORDERED: PATIENT'S OWN MEDICATION (NON-FORMULARY) (Losartan/Hydrochlorothiazide [Hyzaar 100-12.5 Ta PO SCH (10:00)
== END 2024-11-10 10:51 | disposition home or self-care (01) ==
LOC: JERFT 19:00 → JERBED 11-09 00:37 → J7W 11-09 04:20
PROVIDERS: ADMIT Internal Medicine; ATTEND Family Medicine
PROC: 3E023GC Introduction of Other Therapeutic Substance into Muscle, Percutaneous Approach (ICD-10-PCS; principal; 2024-11-09)
PROC: 3E0333Z Introduction of Anti-inflammatory into Peripheral Vein, Percutaneous Approach (ICD-10-PCS; 2024-11-09)
PROC: 3E023NZ Introduction of Analgesics, Hypnotics, Sedatives into Muscle, Percutaneous Approach (ICD-10-PCS; 2024-11-09)
PROC: 3E033NZ Introduction of Analgesics, Hypnotics, Sedatives into Peripheral Vein, Percutaneous Approach (ICD-10-PCS; 2024-11-09)
DX: F31.9 Bipolar disorder, unspecified (principal); Z98.84 Bariatric surgery status; Z90.49 Acquired absence of other specified parts of digestive tract; Z85.3 Personal history of malignant neoplasm of breast; I10 Essential (primary) hypertension; J45.909 Unspecified asthma, uncomplicated; F10.21 Alcohol dependence, in remission; Z87.891 Personal history of nicotine dependence; M79.7 Fibromyalgia
CPT/HCPCS: 0241U-QW; 36415; 71250-TC; 74176-TC; 80053; 81003; 82550; 82607; 83735; 83874; 84100; 84439; 84443; 84484; 84703; 85025; 85027; 85651; 86140; 87086; 90471; 90656; 93005; 93010; 96372; 96374; 96375; 96376; 99285-25; G0378; J0131; Q0162

== ENCOUNTER 2024-11-19 00:49 | Inpatient (IN) | payer OTHER ==
[2024-11-19] MEDS ORDERED: ACETAMINOPHEN INJECTION 100 ML ONE (01:54)
[2024-11-19] MEDS ORDERED: ONDANSETRON 4 MG/2 ML VIAL ONE ×2 (01:54→03:34)
[2024-11-19] MEDS: SODIUM CHLORIDE 1,000 ML IV STA (02:00)
[2024-11-19] MEDS: ONDANSETRON 4 MG/2 ML VIAL IVPB ONE (02:00)
[2024-11-19] MEDS: ACETAMINOPHEN 1000 MG/100 ML BAG IVPB ONE (02:00)
[2024-11-19 02:07] LABS: ABSOLUTE IMMATURE GRANULOCYTES 0.04 x10^3/uL (0.0-0.031); BASOPHILS # 0.03 x10^3/uL (0.01-0.08); EOSINOPHIL % 0.2 % (0.7-5.8); EOSINOPHILS # 0.02 x10^3/uL (0.04-0.36); MCHC 34.1 g/dl (32.2-35.5); MEAN CELL VOLUME 88.4 fl (79.4-94.8); MEAN PLT VOLUME 10.1 fl (9.4-12.3); MONOCYTE # 0.52 x10^3/uL (0.24-0.86); MONOCYTE % 4.2 % (4.7-12.5); PLATELET COUNT 453 x10^3/uL (182-369); RDW 13.2 % (12.3-16.6)
[2024-11-19] MEDS ORDERED: FAMOTIDINE 20 MG/50 ML IVPB 20 MG/50 ML MG IVPB ONE (02:27)
[2024-11-19] MEDS: FAMOTIDINE 20 MG/50 ML IVPB 20 MG/50 ML MG IVPB ONE (02:35)
[2024-11-19 02:42] LABS: CHLORIDE 103 mmol/L (98-107); SODIUM 136 mmol/L (136-145)
[2024-11-19 02:44] LABS: BLOOD UREA NITROGEN 11.1 mg/dL (7-18); CALCIUM 9.7 mg/dL (8.5-10.1); GLUCOSE,RANDOM 135 mg/dL (74-106)
[2024-11-19 02:45] LABS: ALBUMIN 4.1 g/dl (3.4-5.0); CO2 25 mmol/L (21-32); MAGNESIUM 1.9 mg/dL (1.8-2.4)
[2024-11-19 02:48] LABS: CREATININE 0.7 mg/dL (0.55-1.3); SGOT/AST 18 U/L (15-37)
[2024-11-19 02:49] LABS: BILIRUBIN,TOTAL 0.5 mg/dL (0.2-1); TOT PROT 7.6 g/dl (6.4-8.2)
[2024-11-19 03:17] LABS: ALK PHOS 170 U/L (45-117); ANION GAP 8 mmol/L (4-13); POTASSIUM 2.9 mmol/L (3.5-5.1); SGPT/ALT 25 U/L (13-61)
[2024-11-19] MEDS: ONDANSETRON 4 MG/2 ML VIAL IVPUSH ONE (03:40)
[2024-11-19 03:51] LABS: EPI CELLS 7 /uL (0-25.1); HYALINE CASTS 0 /uL (0-3.1); PH,URINE 7.5 (5.0-8.0); URINE APPEARANCE CLEAR; URINE BACTERIA 17 /uL (0-1359); URINE BILIRUBIN NEGATIVE (NEGATIVE); URINE COLOR YELLOW; URINE GLUCOSE (UA) NEGATIVE (NEGATIVE); URINE KETONE TRACE (NEGATIVE); URINE LEUK ESTERASE NEGATIVE (NEGATIVE); URINE NITRITE NEGATIVE (NEGATIVE); URINE PROTEIN 1+ (NEGATIVE); URINE RBC 28 /uL (0-23.9); URINE WBC 2 /uL (0-25.8)
[2024-11-19 03:54] LABS: CHLORIDE 103 mmol/L (98-107); SODIUM 138 mmol/L (136-145)
[2024-11-19 03:55] LABS: CALCIUM 9.6 mg/dL (8.5-10.1)
[2024-11-19 03:56] LABS: BLOOD UREA NITROGEN 12.1 mg/dL (7-18); CO2 26 mmol/L (21-32); GLUCOSE,RANDOM 128 mg/dL (74-106)
[2024-11-19 03:59] LABS: CREATININE 0.6 mg/dL (0.55-1.3)
[2024-11-19] MEDS ORDERED: KCL 10 MEQ IVPB 20 MEQ/200 ML INFUS.BAG IVPB ONE (04:26)
[2024-11-19 04:30] LABS: ANION GAP 10 mmol/L (4-13); POTASSIUM 2.9 mmol/L (3.5-5.1)
[2024-11-19] MEDS: LACTATED RINGERS SOLUTION 1,000 ML/1,000 ML INFUS.BAG IV SCH (04:48)
[2024-11-19] MEDS: KCL 10 MEQ IVPB 10 MEQ/100 ML INFUS.BAG IVPB SCH ×3 (04:49→23:10)
[2024-11-19 06:27] VITALS: BMI 35.9
[2024-11-19 08:13] LABS: CHLORIDE 102 mmol/L (98-107); SODIUM 138 mmol/L (136-145)
[2024-11-19 08:16] LABS: CALCIUM 9.2 mg/dL (8.5-10.1)
[2024-11-19 08:17] LABS: ALBUMIN 3.6 g/dl (3.4-5.0); BLOOD UREA NITROGEN 8.6 mg/dL (7-18); CO2 28 mmol/L (21-32); GLUCOSE,RANDOM 131 mg/dL (74-106); MAGNESIUM 1.9 mg/dL (1.8-2.4)
[2024-11-19 08:19] LABS: SGPT/ALT 21 U/L (13-61)
[2024-11-19 08:20] LABS: CHOLESTEROL 216 mg/dL (50-200); CREATININE 0.6 mg/dL (0.55-1.3); SGOT/AST 13 U/L (15-37)
[2024-11-19 08:21] LABS: BILIRUBIN,TOTAL 0.5 mg/dL (0.2-1); LDL CHOLESTEROL (ONLY SJRH) 116 mg/dL (5-100); TOT PROT 6.7 g/dl (6.4-8.2)
[2024-11-19 08:22] LABS: ALK PHOS 155 U/L (45-117); HDL CHOLESTEROL 68 mg/dL (40-60)
[2024-11-19 08:40] LABS: ANION GAP 7 mmol/L (4-13); POTASSIUM 2.8 mmol/L (3.5-5.1)
[2024-11-19 08:59] LABS: ABSOLUTE IMMATURE GRANULOCYTES 0.19 x10^3/uL (0.0-0.031); BASOPHILS # 0.02 x10^3/uL (0.01-0.08); EOSINOPHIL % 0.1 % (0.7-5.8); EOSINOPHILS # 0.01 x10^3/uL (0.04-0.36); HEMATOCRIT 38.6 % (34.1-44.9); MCHC 33.7 g/dl (32.2-35.5); MEAN CELL VOLUME 89.1 fl (79.4-94.8); MEAN PLT VOLUME 10.4 fl (9.4-12.3); MONOCYTE # 0.58 x10^3/uL (0.24-0.86); MONOCYTE % 5.1 % (4.7-12.5); PLATELET COUNT 416 x10^3/uL (182-369); RDW 13.1 % (12.3-16.6)
[2024-11-19] MEDS ORDERED: D5-1/3NS+40 MEQ KCL - 40 MEQ/1,000 ML INFUS.BAG IV SCH (09:15)
[2024-11-19] MEDS: amLODIPine BESYLATE 5 MG TABLET (FP) PO SCH (10:09)
[2024-11-19] MEDS: PANTOPRAZOLE 40 MG TABLET PO SCH (10:11)
[2024-11-19] MEDS: MONTELUKAST NA 10 MG TABLET PO SCH (10:11)
[2024-11-19] MEDS: QUEtiapine FUMARATE 100 MG TABLET (FP) PO SCH (10:11)
[2024-11-19] MEDS: IBUPROFEN 400 MG TABLET (FP) PO SCH (10:16)
[2024-11-19] MEDS: ASPIRIN 81 MG CHEWABLE TABLETS PO SCH (10:16)
[2024-11-19] MEDS: NICOTINE 21 MG/24 HOURS TOPICAL PATCH TD SCH (10:16)
[2024-11-19] MEDS: ACETAMINOPHEN 1000 MG/100 ML BAG IVPB PRN (11:14)
[2024-11-19] MEDS ORDERED: PANTOPRAZOLE SODIUM 40 MG VIAL IVPUSH SCH (11:30)
[2024-11-19 12:29] LABS: GAMMA GLUTAMYL TRANSPEPTIDASE 64 U/L (5-85)
[2024-11-19] MEDS: D5-1/2NS+20 MEQ KCL - 20 MEQ/1,000 ML INFUS.BAG IV SCH (13:27)
[2024-11-19] MEDS: POTASSIUM CHLORIDE ORAL LIQUID 20 MEQ/15 ML PO SCH (13:28)
[2024-11-19] MEDS: ONDANSETRON 4 MG/2 ML VIAL IVPUSH PRN (14:44)
[2024-11-19] MEDS: GABAPENTIN 300 MG CAPSULE PO SCH (14:44)
[2024-11-19 16:38] LABS: CHLORIDE 101 mmol/L (98-107); SODIUM 139 mmol/L (136-145)
[2024-11-19 16:40] LABS: BLOOD UREA NITROGEN 9.7 mg/dL (7-18); CALCIUM 9.8 mg/dL (8.5-10.1); CO2 25 mmol/L (21-32); GLUCOSE,RANDOM 113 mg/dL (74-106)
[2024-11-19 16:43] LABS: CREATININE 0.6 mg/dL (0.55-1.3)
[2024-11-19 16:46] LABS: ANION GAP 14 mmol/L (4-13); POTASSIUM 2.9 mmol/L (3.5-5.1)
[2024-11-19] MEDS: clonazePAM 2 MG TABLET PO PRN (16:53)
[2024-11-19] MEDS: QUEtiapine FUMARATE 200 MG TABLET PO SCH (21:35)
[2024-11-19] MEDS: traMADol HCL 50 MG TABLET PO ONE (23:07)
[2024-11-20 07:53] LABS: ABSOLUTE IMMATURE GRANULOCYTES 0.05 x10^3/uL (0.0-0.031); BASOPHILS # 0.02 x10^3/uL (0.01-0.08); EOSINOPHIL % 0.3 % (0.7-5.8); EOSINOPHILS # 0.03 x10^3/uL (0.04-0.36); HEMATOCRIT 37.6 % (34.1-44.9); HEMOGLOBIN 12.9 g/dL (11.2-15.7); MCHC 34.3 g/dl (32.2-35.5); MEAN CELL VOLUME 87.9 fl (79.4-94.8); MEAN PLT VOLUME 9.8 fl (9.4-12.3); MONOCYTE % 7.6 % (4.7-12.5); PLATELET COUNT 393 x10^3/uL (182-369); RDW 13.3 % (12.3-16.6)
[2024-11-20 08:15] LABS: CHLORIDE 102 mmol/L (98-107); SODIUM 138 mmol/L (136-145)
[2024-11-20 08:16] LABS: CALCIUM 9.6 mg/dL (8.5-10.1)
[2024-11-20 08:17] LABS: ALBUMIN 3.7 g/dl (3.4-5.0); BLOOD UREA NITROGEN 15.2 mg/dL (7-18); CO2 28 mmol/L (21-32); GLUCOSE,RANDOM 125 mg/dL (74-106)
[2024-11-20 08:18] LABS: ANION GAP 8 mmol/L (4-13); POTASSIUM 2.7 mmol/L (3.5-5.1)
[2024-11-20 08:20] LABS: CREATININE 0.7 mg/dL (0.55-1.3); SGOT/AST 19 U/L (15-37); SGPT/ALT 23 U/L (13-61)
[2024-11-20 08:21] LABS: BILIRUBIN,TOTAL 0.5 mg/dL (0.2-1)
[2024-11-20 08:22] LABS: TOT PROT 6.6 g/dl (6.4-8.2)
[2024-11-20 08:23] LABS: ALK PHOS 150 U/L (45-117)
[2024-11-20] MEDS ORDERED: D5-1/3NS+40 MEQ KCL - 40 MEQ/1,000 ML INFUS.BAG IV SCH (09:45)
[2024-11-20] MEDS: HYDROmorphone HCL CARPU-JECT 2 MG/1 ML DISP.SYRIN IVPUSH ONE (11:25)
[2024-11-20] MEDS: KCL 10 MEQ IVPB 10 MEQ/100 ML INFUS.BAG IVPB SCH ×2 (11:25→16:52)
[2024-11-20] MEDS: PANTOPRAZOLE SODIUM 40 MG VIAL IVPUSH SCH (11:25)
[2024-11-20] MEDS: FAMOTIDINE 10 MG TABLET PO SCH (11:26)
[2024-11-20] MEDS: traMADol HCL 50 MG TABLET PO PRN (15:50)
[2024-11-21] MEDS: D5-1/2NS+40 MEQ KCL - 40 MEQ/1,000 ML INFUS.BAG IV SCH (02:59)
[2024-11-21 07:05] LABS: ABSOLUTE IMMATURE GRANULOCYTES 0.04 x10^3/uL (0.0-0.031); BASOPHILS # 0.04 x10^3/uL (0.01-0.08); EOSINOPHIL % 6.8 % (0.7-5.8); EOSINOPHILS # 0.66 x10^3/uL (0.04-0.36); HEMATOCRIT 33.9 % (34.1-44.9); HEMOGLOBIN 11.4 g/dL (11.2-15.7); MCHC 33.6 g/dl (32.2-35.5); MEAN CELL VOLUME 90.6 fl (79.4-94.8); MEAN PLT VOLUME 10.9 fl (9.4-12.3); MONOCYTE % 7.2 % (4.7-12.5); PLATELET COUNT 284 x10^3/uL (182-369); RDW 13.5 % (12.3-16.6)
[2024-11-21 08:00] LABS: BLOOD UREA NITROGEN 14.1 mg/dL (7-18); CALCIUM 8.6 mg/dL (8.5-10.1)
[2024-11-21 08:01] LABS: ALBUMIN 3.1 g/dl (3.4-5.0)
[2024-11-21 08:04] LABS: CREATININE 0.6 mg/dL (0.55-1.3)
[2024-11-21 08:05] LABS: BILIRUBIN,TOTAL 0.3 mg/dL (0.2-1); TOT PROT 5.6 g/dl (6.4-8.2)
[2024-11-21] MEDS: HYDROmorphone HCL CARPU-JECT 2 MG/1 ML DISP.SYRIN IVPUSH ONE (10:22)
[2024-11-21] MEDS: KCL 10 MEQ IVPB 10 MEQ/100 ML INFUS.BAG IVPB SCH (10:35)
[2024-11-21] MEDS: MONTELUKAST NA 10 MG TABLET PO SCH (21:10)
[2024-11-21 23:50] LABS: EPI CELLS 5 /uL (0-25.1); HYALINE CASTS 1 /uL (0-3.1); PH,URINE 7.5 (5.0-8.0); URINE APPEARANCE CLEAR; URINE BACTERIA 75 /uL (0-1359); URINE BILIRUBIN NEGATIVE (NEGATIVE); URINE COLOR YELLOW; URINE GLUCOSE (UA) NEGATIVE (NEGATIVE); URINE KETONE NEGATIVE (NEGATIVE); URINE LEUK ESTERASE TRACE (NEGATIVE); URINE NITRITE NEGATIVE (NEGATIVE); URINE PROTEIN NEGATIVE (NEGATIVE); URINE RBC 9 /uL (0-23.9); URINE WBC 21 /uL (0-25.8)
[2024-11-22 07:07] LABS: ABSOLUTE IMMATURE GRANULOCYTES 0.04 x10^3/uL (0.0-0.031); BASOPHILS # 0.04 x10^3/uL (0.01-0.08); HEMATOCRIT 34.5 % (34.1-44.9); HEMOGLOBIN 11.4 g/dL (11.2-15.7); MEAN CELL VOLUME 91.3 fl (79.4-94.8); MEAN PLT VOLUME 10.3 fl (9.4-12.3); PLATELET COUNT 321 x10^3/uL (182-369)
[2024-11-22 07:34] LABS: POTASSIUM 3.3 mmol/L (3.5-5.1)
[2024-11-22 07:43] LABS: CALCIUM 8.4 mg/dL (8.5-10.1)
[2024-11-22 07:44] LABS: ALBUMIN 3.2 g/dl (3.4-5.0); BLOOD UREA NITROGEN 11.6 mg/dL (7-18)
[2024-11-22 07:47] LABS: BILIRUBIN,TOTAL 0.2 mg/dL (0.2-1); CREATININE 0.6 mg/dL (0.55-1.3); TOT PROT 5.6 g/dl (6.4-8.2)
[2024-11-22] MEDS: KETOROLAC TROMETHAMINE 30 MG/1 ML VIAL IVPUSH ONE (11:21)
[2024-11-22] MEDS: clonazePAM 2 MG TABLET PO SCH ×2 (11:22→21:03)
[2024-11-22] MEDS: POTASSIUM CHLORIDE TABS 20 MEQ TABLET.ER (FP) PO ONE (11:22)
[2024-11-22] MEDS: oxyCODONE HCL 5 MG TABLET PO PRN ×2 (12:28→20:27)
[2024-11-22] MEDS: D5-1/2NS+40 MEQ KCL - 40 MEQ/1,000 ML INFUS.BAG IV SCH (20:40)
[2024-11-22] MEDS: MONTELUKAST NA 10 MG TABLET PO SCH (21:02)
[2024-11-22] MEDS: GABAPENTIN 300 MG CAPSULE PO SCH (21:02)
[2024-11-22] MEDS: QUEtiapine FUMARATE 200 MG TABLET PO SCH (21:02)
[2024-11-22] MEDS: PANTOPRAZOLE 40 MG TABLET PO SCH (21:03)
[2024-11-22] MEDS: MIRTAZAPINE 15 MG TABLET (FP) PO SCH (21:03)
[2024-11-22] MEDS: SENNOSIDES 8.6MG TABLET (FP) PO SCH (21:03)
[2024-11-22] MEDS ORDERED: SENNOSIDES 8.6MG TABLET (FP) PO SCH (22:00)
[2024-11-22] MEDS ORDERED: MIRTAZAPINE 15 MG TABLET (FP) PO SCH (22:00)
[2024-11-23] MEDS: ONDANSETRON 4 MG/2 ML VIAL IVPUSH PRN (06:14)
[2024-11-23] MEDS: FAMOTIDINE 10 MG TABLET PO SCH (09:45)
[2024-11-23] MEDS: QUEtiapine FUMARATE 100 MG TABLET (FP) PO SCH (09:46)
[2024-11-23] MEDS: NICOTINE 21 MG/24 HOURS TOPICAL PATCH TD SCH (09:46)
[2024-11-23] MEDS: ASPIRIN 81 MG CHEWABLE TABLETS PO SCH (09:46)
[2024-11-23] MEDS: amLODIPine BESYLATE 5 MG TABLET (FP) PO SCH (09:46)
[2024-11-23] MEDS: traMADol HCL 50 MG TABLET PO PRN (10:27)
[2024-11-23 10:54] LABS: ABSOLUTE IMMATURE GRANULOCYTES 0.02 x10^3/uL (0.0-0.031); BASOPHILS # 0.04 x10^3/uL (0.01-0.08); EOSINOPHIL % 14.5 % (0.7-5.8); EOSINOPHILS # 1.31 x10^3/uL (0.04-0.36); HEMOGLOBIN 10.9 g/dL (11.2-15.7); MEAN PLT VOLUME 10.3 fl (9.4-12.3); MONOCYTE # 0.33 x10^3/uL (0.24-0.86); MONOCYTE % 3.7 % (4.7-12.5); PLATELET COUNT 318 x10^3/uL (182-369); RDW 14.1 % (12.3-16.6)
[2024-11-23 11:09] LABS: INR 0.97 (0.83-1.09); PROTHROMBIN TIME (PATIENT) 10.7 SEC (9.7-13.0)
[2024-11-23 11:20] LABS: POTASSIUM 3.8 mmol/L (3.5-5.1)
[2024-11-23 11:23] LABS: ALBUMIN 3.1 g/dl (3.4-5.0); BLOOD UREA NITROGEN 12.8 mg/dL (7-18); CALCIUM 8.4 mg/dL (8.5-10.1); MAGNESIUM 2.1 mg/dL (1.8-2.4)
[2024-11-23 11:27] LABS: CREATININE 0.7 mg/dL (0.55-1.3)
[2024-11-23 11:28] LABS: BILIRUBIN,TOTAL 0.3 mg/dL (0.2-1); TOT PROT 5.8 g/dl (6.4-8.2)
[2024-11-23 14:21] VITALS: RESP 18
[2024-11-24 10:02] VITALS: BP 158/72; PULSE 78; TEMP 98.2
== END 2024-11-24 11:09 | disposition home or self-care (01) | DRG 468 ==
LOC: JER 00:49 → JERBED 05:19 → J4W 06:02 → UNDODISOB 19:31 → OBSVTOIN 11-21 12:58 → J5S 11-22 18:45
PROVIDERS: ADMIT Family Medicine; ATTEND Family Medicine
DX: N28.89 Other specified disorders of kidney and ureter (principal); I10 Essential (primary) hypertension; E87.6 Hypokalemia; F31.9 Bipolar disorder, unspecified; D72.829 Elevated white blood cell count, unspecified; E78.5 Hyperlipidemia, unspecified; N20.0 Calculus of kidney; R07.89 Other chest pain; K52.9 Noninfective gastroenteritis and colitis, unspecified
CPT/HCPCS: 0241U-QW; 36415; 71045-TC-FY; 74177-TC; 80048; 80053; 80061; 81003; 82550; 82977; 83690; 83735; 84443; 84484; 84703; 85025; 85610; 86140; 87086; 93005; 93010; 99285-25; G0378; J0131; Q9967

== ENCOUNTER 2025-05-10 15:06 | Observation (INO) | payer OTHER ==
[2025-05-10 15:13] VITALS: RESP 18; BMI 26.4
[2025-05-10] MEDS ORDERED: ACETAMINOPHEN INJECTION 100 ML ONE (16:32)
[2025-05-10] MEDS: ACETAMINOPHEN 1000 MG/100 ML BAG IVPB ONE (16:35)
[2025-05-10 16:49] LABS: ABSOLUTE IMMATURE GRANULOCYTES 0.01 x10^3/uL (0.0-0.031); BASOPHILS # 0.04 x10^3/uL (0.01-0.08); EOSINOPHIL % 10.9 % (0.7-5.8); EOSINOPHILS # 0.96 x10^3/uL (0.04-0.36); MCHC 32.7 g/dl (32.2-35.5); MEAN CELL VOLUME 93.5 fl (79.4-94.8); MEAN PLT VOLUME 9.8 fl (9.4-12.3); MONOCYTE # 0.55 x10^3/uL (0.24-0.86); MONOCYTE % 6.3 % (4.7-12.5); RDW 12.4 % (12.3-16.6)
[2025-05-10 16:56] LABS: INR 1.0 (0.83-1.09); PROTHROMBIN TIME (PATIENT) 10.9 SEC (9.7-13.0)
[2025-05-10 16:59] LABS: ACTIVATED PTT 30.7 SECONDS (25.2-36.5)
[2025-05-10 17:26] LABS: GLUCOSE,RANDOM 84.0 mg/dL (74-106); TOT PROT 6.4 g/dl (6.4-8.2)
[2025-05-10 17:27] LABS: CO2 23.0 mmol/L (21-32)
[2025-05-10 17:29] LABS: ALK PHOS 139.0 U/L (40-150)
[2025-05-10 17:31] LABS: SGOT/AST 20.0 U/L (5-34); SGPT/ALT 16.0 U/L (0-55)
[2025-05-10 17:32] LABS: CREATININE 0.79 mg/dL (0.55-1.3)
[2025-05-10 17:52] LABS: HCV DIAGNOSTIC IN-HOUSE W/RFLX NON-REACTIVE (NONREACTIVE)
[2025-05-10 17:53] LABS: HIV INTERPRETATION NEGATIVE (NEGATIVE)
[2025-05-10] MEDS ORDERED: KETOROLAC TROMETHAMINE 15 MG/ML VIAL ONE (18:29)
[2025-05-10] MEDS: KETOROLAC TROMETHAMINE 15 MG/ML VIAL IVPUSH ONE (18:31)
[2025-05-10] MEDS: morphine CARPU-JECT 4 MG/1 ML DISP.SYRIN IVPUSH ONE (19:44)
[2025-05-10] MEDS ORDERED: PANTOPRAZOLE SODIUM 40 MG VIAL ONE (20:18)
[2025-05-10] MEDS: PANTOPRAZOLE SODIUM 40 MG VIAL IVPUSH ONE (20:36)
[2025-05-10] MEDS: POLYETHYLENE GLYCOL (HEALTHYLAX) 3350 17 GM PACKET PO SCH (23:39)
[2025-05-10] MEDS: SODIUM PHOSPHATE/NA BIPHOS 133 ML ENEMA RC ONE (23:40)
[2025-05-11] MEDS: QUEtiapine FUMARATE 100 MG TABLET (FP) PO ONE (00:14)
[2025-05-11] MEDS: ACETAMINOPHEN 1000 MG/100 ML BAG IVPB ONE (06:11)
[2025-05-11 07:11] VITALS: BP 117/76; PULSE 71; TEMP 97.5
[2025-05-11] MEDS ORDERED: ACETAMINOPHEN 1000 MG/100 ML BAG IVPB ONE (07:15)
[2025-05-11 07:46] LABS: EPI CELLS 17 /uL (0-25.1); HYALINE CASTS 0 /uL (0-3.1); URINE APPEARANCE CLEAR; URINE BACTERIA 204 /uL (0-1359); URINE BILIRUBIN NEGATIVE (NEGATIVE); URINE COLOR YELLOW; URINE GLUCOSE (UA) NEGATIVE (NEGATIVE); URINE KETONE NEGATIVE (NEGATIVE); URINE LEUK ESTERASE TRACE (NEGATIVE); URINE NITRITE NEGATIVE (NEGATIVE); URINE PROTEIN NEGATIVE (NEGATIVE); URINE RBC 5 /uL (0-23.9); URINE UROBILINOGEN 1.0 mg/dL (0.2-1.0); URINE WBC 73 /uL (0-25.8)
[2025-05-11] MEDS ORDERED: traZODone HCL 100 MG TABLET (FP) PO SCH (10:00)
[2025-05-11] MEDS ORDERED: PANTOPRAZOLE SODIUM 40 MG VIAL IVPUSH SCH (10:00)
[2025-05-11] MEDS ORDERED: LOSARTAN POTASSIUM 50 MG TABLET PO SCH (10:00)
[2025-05-11] MEDS ORDERED: ATORVASTATIN CA 10 MG TABLET (FP) PO SCH (10:00)
[2025-05-11] MEDS ORDERED: QUEtiapine FUMARATE 100 MG TABLET (FP) PO SCH (10:00)
== END 2025-05-11 07:00 | disposition left against medical advice (07) ==
LOC: JER 15:06 → JERBED 20:51 → J5S 22:10
PROVIDERS: ADMIT Family Medicine; ATTEND Family Medicine
PROC: 3E033NZ Introduction of Analgesics, Hypnotics, Sedatives into Peripheral Vein, Percutaneous Approach (ICD-10-PCS; principal; 2025-05-10)
PROC: 3E0333Z Introduction of Anti-inflammatory into Peripheral Vein, Percutaneous Approach (ICD-10-PCS; 2025-05-10)
PROC: 3E033GC Introduction of Other Therapeutic Substance into Peripheral Vein, Percutaneous Approach (ICD-10-PCS; 2025-05-10)
DX: R10.30 Lower abdominal pain, unspecified (principal); R19.7 Diarrhea, unspecified; F31.9 Bipolar disorder, unspecified; I10 Essential (primary) hypertension; E78.5 Hyperlipidemia, unspecified; J45.909 Unspecified asthma, uncomplicated; K59.00 Constipation, unspecified; F19.99 Other psychoactive substance use, unspecified with unspecified psychoactive substance-induced disorder; F40.240 Claustrophobia; Z98.84 Bariatric surgery status; F41.0 Panic disorder [episodic paroxysmal anxiety]; N20.0 Calculus of kidney; Z85.3 Personal history of malignant neoplasm of breast
CPT/HCPCS: 36415; 71045-TC-FY; 71275-TC; 74177-TC; 80053; 81003; 83690; 83735; 84100; 84484; 85025; 85610; 85730; 86803; 87086; 87389; 93005; 93010; 96374; 96375; 99285-25; G0378; Q9967